=== PATIENT | male | born 1960 | race Caucasian/White ===

== ENCOUNTER 2017-06-17 02:12 | Emergency (ER) | payer SELFPAY ==
[2017-06-17] MEDS ORDERED: Albuterol/Ipratropium NEB.SOL* Albuterol 2.5 MG/Ipratropium 0.5 MG 3 ML ONE ×2 (02:36→04:44)
[2017-06-17] MEDS ORDERED: Albuterol/Ipratropium NEB.SOL* Albuterol 2.5 MG/Ipratropium 0.5 MG 3 ML INH ONE ×2 (02:38→04:41)
[2017-06-17 03:07] LABS: EPAP 6; FIO2 50; IPAP 12
[2017-06-17 03:12] LABS: PCO2 Arterial 44 mmHg (35-45)
[2017-06-17] MEDS ORDERED: methylPREDNISolone 125 MG* 2 ML VIAL ONE (04:42)
[2017-06-17] MEDS ORDERED: methylPREDNISolone 125 MG* 2 ML VIAL IV ONE (04:42)
[2017-06-17 05:41] LABS: Hematocrit 46 % (42-52); Hemoglobin 15.4 g/dl (14.0-18.0); Mean Corpuscular HGB Conc 34 g/dl (31-36); Mean Corpuscular Hemoglobin 30 pg (27-31); Mean Corpuscular Volume 88 fL (80-94); Mean Platelet Volume 9 um3 (7.4-10.4); Red Cell Distribution Width 13 % (10.5-15); White Blood Count 11.8 10^3/ul (3.5-10.8)
[2017-06-17 05:59] LABS: Albumin 4.4 g/dL (3.2-5.2); BUN/Creatinine Ratio 27.3 (8-20); C Reactive Protein 14.61 mg/L (< 5.00); Calcium 9.5 mg/dL (8.6-10.3); EGFR African American 133.4 (>60); EGFR Non-African American 103.8 (>60); Potassium 3.8 mmol/L (3.5-5.0); Total Bilirubin 0.6 mg/dL (0.2-1.0); Total Protein 7.4 g/dL (6.4-8.9)
[2017-06-17 06:08] VITALS: BP 137/79
[2017-06-17] MEDS ORDERED: Iohexol 300* (CONTRAST) 10 ML SDV IV ONE (06:42)
[2017-06-17 06:50] LABS: Troponin I 0.01 ng/mL (<0.04)
[2017-06-17 08:05] LABS: Urine Bilirubin Negative (Negative); Urine Glucose Negative (Negative); Urine Nitrite Negative (Negative)
--- NOTE | 2017-06-17 08:16 | RAD ---
HISTORY: Shortness of breath COMPARISONS: November 21, 2008 VIEWS: 1: frontal portable view of the chest at 2:45 AM FINDINGS: LINES AND TUBES: None. CARDIOMEDIASTINAL SILHOUETTE: The cardiomediastinal silhouette is normal for portable technique. PLEURA: The costophrenic angles are sharp. No pleural abnormalities are noted. LUNG PARENCHYMA: The lungs are clear. ABDOMEN: The upper abdomen is clear. There is no subphrenic gas. BONES AND SOFT TISSUES: No bone or soft tissue abnormalities are noted. IMPRESSION: NO ACTIVE CARDIOPULMONARY DISEASE.
--- NOTE | 2017-06-17 08:28 | RAD ---
HISTORY: Right-sided neck mass COMPARISONS: None TECHNIQUE: Multiple contiguous axial CT scans were obtained of the neck after the administration of nonionic intravenous contrast, with coronal and sagittal multiplanar reformations. FINDINGS: BRAIN AND ORBITS: The visualized brain is unremarkable. An orbital prosthesis is noted on the right.. PARANASAL SINUSES: The visualized paranasal sinuses are clear. SALIVARY GLANDS: The parotid glands, submandibular glands, sublingual glands are normal. NASAL CAVITY/NASOPHARYNX: The nasal cavity and nasopharynx are normal. ORAL CAVITY/OROPHARYNX: The oral cavity and oropharynx are unremarkable. LARYNGEAL APPARATUS/HYPOPHARYNX: There is a mass of the right laryngeal apparatus that extends into the supraglottic and subglottic spaces, extending to the anterior commissure, and invading the arytenoid cartilage and thyroid cartilage. This measures approximately 3.6 x 2.4 x 3.3 cm in size. There is partial effacement of the airway at this level UPPER AIRWAY/UPPER ESOPHAGUS: The visualized upper airway and esophagus are normal. LUNG APICES: There is extensive centrilobular emphysematous change of the lung apices bilaterally. THYROID GLAND: The thyroid gland is normal. LYMPH NODES: There are enlarged, for level 2 lymph nodes with central necrosis on the right measuring up to 2.4 cm in short axis. VASCULATURE: There is partial effacement of the right internal jugular vein by the cervical lymphadenopathy. BONES AND SOFT TISSUES: Degenerative changes are noted of the spine OTHER: None. IMPRESSION: 1. RIGHT LARYNGEAL MASS WITH SUPRAGLOTTIC AND SUBGLOTTIC EXTENSION AND PARTIAL EFFACEMENT OF THE AIRWAY. 2. THERE IS RIGHT UPPER CERVICAL LYMPHADENOPATHY.
--- NOTE | 2017-07-27 04:21 | ED ---
Joel Huynh Abhishek, scribed for Hiro Byrne MD on 06/17/17 at 0429 . Shortness of Breath - HPI Summary HPI Summary: This patient is a 56 year old M _presenting to [facility] accompanied by female with a chief complaint of SOB worse since 0000 at 06/17/17. The CC is described as sudden onset and improved since onset. The patient rates the pain 0/10 in severity. Symptoms aggravated by nothing. Symptoms alleviated by nothing. Patient reports wheezing, coughing, sore throat, and neck pain. Patient denies chest pain, fever, dental pain. PMHx denies HTN, SC, and COPD. - History of Current Complaint Chief Complaint: EDShortnessOfBreath Hx Obtained From: Patient Onset/Duration: Gradual Onset, Still Present, Worse Since - 0000 at 06/17/17 Timing: Constant Aggrevating Factors: Nothing Alleviating Factors: Nothing Associated Signs & Symptoms: Cough (Nonproductive), Wheezing - Risk Factors Cardiac: Smoking - Allergy/Home Medications Allergies/Adverse Reactions: Allergies Allergy/AdvReac Type Severity Reaction Status Date / Time No Known Allergies Allergy Verified 07/22/17 10:36 PMH/Surg Hx/FS Hx/Imm Hx Cardiovascular History: Denies: Hx Hypertension, Hx Myocardial Infarction Respiratory History: Denies: Hx Chronic Obstructive Pulmonary Disease (COPD) - Immunization History Date of Tetanus Vaccine: 1 year ago Infectious Disease History: No Infectious Disease History: Denies: Traveled Outside the [place] in Last 30 Days - Family History Known Family History: Positive: Cardiac Disease, Other - Cancer - Social History Alcohol Use: None Substance Use Type: Reports: None Smoking Status (MU): Heavy Every Day Tobacco Smoker Review of Systems Negative: Fever Eyes: Negative Positive: Other. Negative: Dental Pain Negative: Chest Pain Positive: Shortness Of Breath - sore throat, and wheezing, Cough, Other Gastrointestinal: Negative Genitourinary: Negative Positive: Other - neck pain Skin: Negative Neurological: Negative Psychological: Normal All Other Systems Reviewed And Are Negative: Yes Physical Exam - Summary Physical Exam Summary: Appearance: Well-appearing, Well-nourished, post traumatic injury of the right eye at baseline, Skin: Warm Eyes: Normal ENT: solid tenderness 3 cm round mass left antior cervical area Neck: Supple, nontender Respiratory: Respiratiory bilaterially expiratory wheezing prolonged expiratory phase Noisy breathing But able to speak in full sentences Cardiovascular: Normal Abdomen: Soft, nontender Bowel: Present Musculoskeletal: Normal, Strength/ROM Intact Neurological: Normal, Alert, Oriented to Person Psychiatric: Normal Triage Information Reviewed: Yes Vital Signs On Initial Exam: Initial Vitals Temp Pulse Resp BP Pulse Ox 98.3 F 105 24 128/92 95 06/17/17 02:20 06/17/17 02:20 06/17/17 02:20 06/17/17 02:20 06/17/17 02:20 Vital Signs Reviewed: Yes Diagnostics - Vital Signs Vital Signs Temp Pulse Resp BP Pulse Ox 06/17/17 03:59 89 18 99 06/17/17 03:30 96 17 100 06/17/17 02:48 94 26 100 06/17/17 02:20 98.3 F 105 24 128/92 95 - Laboratory Lab Results: Lab Results 06/17/17 Range/Units 02:45 Patient Temperature Not Reportable ABG pH 7.42 (7.35-7.45) ABG pH (Temp Correct) Not Reportable ABG pCO2 44 (35-45) mmHg ABG pCO2 (Temp Corrct Not Reportable ABG pO2 232 H (80-100) mmHg ABG pO2 (Temp Correct Not Reportable ABG HCO3 27.4 (19-31) mmol/L ABG O2 Saturation 99.6 H (95-98) % ABG Base Excess 3.4 H (-2.0-2.0) Respiration Rate Not Reportable O2 Delivery Device bipap Ventilator Type Not Reportable Vent Mode s/t FiO2 50 Inspiratory Time Not Reportable PEEP Not Reportable Pressure Support Not Reportable Pressure Control Not Reportable EPAP 6 IPAP 12 BiPAP Not Reportable Result Diagrams: 06/17/17 05:10 06/17/17 05:10 Lab Statement: Any lab studies that have been ordered have been reviewed, and results considered in the medical decision making process. Course/Dx - Course Assessment/Plan: pt wishes to leave AMA before reevaluation. Pt informed of risks against leaving AMA and demonstrates understanding. Pt left before I was able to provide proper discharge instructions - Diagnoses Provider Diagnoses: COPD exacerbation Discharge - Discharge Plan Condition: Stable Disposition: AGAINST MEDICAL ADVICE Referrals: No Primary Care Phys,NOPCP [Primary Care Provider] - The documentation as recorded by the scribe, Joel,Aidan accurately reflects the service I personally performed and the decisions made by me, Hiro Byrne MD.
== END 2017-06-17 07:53 | disposition left against medical advice (07) ==
LOC: ED 02:12
DX: J44.1 Chronic obstructive pulmonary disease with (acute) exacerbation (principal); F17.210 Nicotine dependence, cigarettes, uncomplicated
CPT/HCPCS: 36415; 36600; 70491; 71010; 80053; 81003; 82553; 82803; 83880; 84484; 85025; 85610; 85730; 86140; 93005; 94660; 96374; 99283; A9270-GY; J2930; Q9967

== ENCOUNTER 2017-06-23 14:57 | Emergency (ER) | payer SELFPAY ==
[2017-06-23] MEDS ORDERED: predniSONE TAB* 20 MG PO ONE (16:42)
--- NOTE | 2017-06-23 16:58 | ED ---
Marvin Huynh Alfonso, scribed for Jose Cortez MD on 06/23/17 at 1535 . Shortness of Breath - HPI Summary HPI Summary: This patient is a 56 year [facility] M [facility] female with a chief complaint of SOB since 4 months ago. The patient rates the pain 0/10 in severity. Symptoms aggravated by nothing. Symptoms alleviated by nothing. Patient reports right-sided neck lump, and hoarse voice. Medications reviewed. Allergies reviewed. - History of Current Complaint Chief Complaint: EDShortnessOfBreath Time Seen by Provider: 06/23/17 15:30 Hx Obtained From: Patient Onset/Duration: Gradual Onset, Still Present, Other - Lasting 4 months Timing: Constant Aggrevating Factors: Nothing Alleviating Factors: Nothing - Allergy/Home Medications Allergies/Adverse Reactions: Allergies Allergy/AdvReac Type Severity Reaction Status Date / Time No Known Allergies Allergy Verified 06/17/17 02:34 PMH/Surg Hx/FS Hx/Imm Hx Endocrine/Hematology History: Denies: Hx Diabetes Cardiovascular History: Denies: Hx Hypertension History: Denies: Hx Dialysis, Hx Renal Disease EENT History: Denies: Hx Deafness - Immunization History Date of Tetanus Vaccine: 1 year ago Infectious Disease History: No Infectious Disease History: Denies: Traveled Outside the [place] in Last 30 Days - Family History Known Family History: Positive: Cardiac Disease - Social History Alcohol Use: None Substance Use Type: Reports: None Smoking Status (MU): Heavy Every Day Tobacco Smoker Review of Systems Negative: Fever Positive: Other - Hoarse voice Positive: Shortness Of Breath Positive: Other - right-sided neck lump All Other Systems Reviewed And Are Negative: Yes Physical Exam - Summary Physical Exam Summary: General: well-appearing, no pain distress Skin: warm, color reflects adequate perfusion, dry Head: normal Eyes: EOMI, MELODY ENT: Voice is hoarse Neck: supple, nontender Respiratory: Stridor, breath sounds present Cardiovascular: RRR Abdomen: soft, nontender Bowel: present Musculoskeletal: strength/ROM intact, Swelling right lateral neck Neurological: normal, sensory/motor intact, A&O x3 Psychological: affect/mood appropriate Triage Information Reviewed: Yes Vital Signs On Initial Exam: Initial Vitals Temp Pulse Resp BP Pulse Ox 98.5 F 88 30 130/86 96 06/23/17 15:18 06/23/17 15:18 10/31/17 15:18 06/23/17 15:18 06/23/17 15:18 Vital Signs Reviewed: Yes Diagnostics - Vital Signs Vital Signs Temp Pulse Resp BP Pulse Ox 06/23/17 15:18 98.5 F 88 30 130/86 96 - Laboratory Lab Statement: Any lab studies that have been ordered have been reviewed, and results considered in the medical decision making process. Course/Dx - Course Course Of Treatment: DISCUSSED WITH KELLEN NAVA. HE RECOMMENDED STEROIDS PO AND F/U IN ENT OFFICE TOMORROW OR THE NEXT DAY IF THE PATIENT WAS SAFE TO DO SO AND ABLE TO GET TRANSPORTATION TO THE OFFICE. I DISCUSSED THIS WITH THE PATIENT AND HIS . THEY FEEL SAFE GETTING TO THE OFFICE AND DO HAVE TRANSPORTATION. THEY ALSO UNDERSTAND TO RETURN RIGHT AWAY WITH ANY DIFFICULTY BREATHING OR ANY CONCERNS. NO CRITICAL CARE TIME. - Diagnoses Provider Diagnoses: Mass of right side of neck, Dyspnea - Physician Notifications Discussed Care of Patient With: Brandon Navarro Time Discussed With Above Provider: 15:46 Instructed by Provider To: Other - Consulted Dr. Navarro (ENT) at 1546 regarding the patients case. He states that if the patient is stable for d/c start the patient on steroids and have him seen at his ENT office tomorrow. Discharge - Discharge Plan Condition: Stable Disposition: HOME Prescriptions: predniSONE TAB* [Deltasone TAB*] 20 mg PO BID #5 tab Referrals: No Primary Care Phys,NOPCP [Primary Care Provider] - Additional Instructions: FOLLOW UP WITH ENT FOR YOUR NECK MASS THAST IS CAUSING SHORTNESS OF BREATH. CALL TOMORROW, 06/24/17, IN THE MORNING TO BE SEEN EITHER TOMORROW OR THE NEXT DAY, 06/25/17. I DISCUSSED YOUR CASE WITH KELLEN NAVA. RETURN TO THE EMERGENCY DEPARTMENT FOR ANY WORSENING OF YOUR CONDITION; DIFFICULTY BREATHING OR SWALLOWING OR QUESTIONS OR CONCERNS. The documentation as recorded by the Marvin bradley Alfonso accurately reflects the service I personally performed and the decisions made by me, Jose Cortez MD.
[2017-06-23 17:29] VITALS: BP 128/82
== END 2017-06-23 17:29 | disposition home or self-care (01) ==
LOC: ED 14:57
DX: R22.1 Localized swelling, mass and lump, neck (principal); R06.00 Dyspnea, unspecified; F17.210 Nicotine dependence, cigarettes, uncomplicated
CPT/HCPCS: 99282; J7512

== ENCOUNTER 2017-06-25 16:30 | Inpatient (IN) | payer MEDICAID ==
--- NOTE | 2017-06-25 13:41 | RAD ---
Indication: Shortness of breath, preop tracheostomy tube. Single frontal view of the chest performed at 1310 hours was reviewed. Comparison is made with previous exam dated June 17, 2017. No mediastinal shift is noted. Heart is of normal size and configuration. Lung canales appear clear. Hyperinflated lung canales are noted. IMPRESSION: NO ACTIVE CARDIOPULMONARY DISEASE IS NOTED.
[2017-06-25 13:45] LABS: Hematocrit 45 % (42-52); Hemoglobin 14.8 g/dl (14.0-18.0); Mean Corpuscular HGB Conc 33 g/dl (31-36); Mean Corpuscular Hemoglobin 29 pg (27-31); Mean Corpuscular Volume 88 fL (80-94); Mean Platelet Volume 8 um3 (7.4-10.4); Red Blood Count 5.14 10^6/ul (4.0-5.4); Red Cell Distribution Width 14 % (10.5-15)
[2017-06-25 14:04] LABS: Albumin 4.1 g/dL (3.2-5.2); BUN/Creatinine Ratio 16.7 (8-20); Calcium 9.3 mg/dL (8.6-10.3); EGFR African American 131.5 (>60); EGFR Non-African American 102.2 (>60); Globulin 2.9 g/dL (2-4); Potassium 3.7 mmol/L (3.5-5.0); Total Bilirubin 0.4 mg/dL (0.2-1.0)
[~2017-06-25 16:30] MED LIST: Buffered Lidocaine 0.9% SYRIN* 5 ML/SYR SYRINGE INTRADERM ONE; Dexamethasone IV* 4 MG/ML 1 ML (4 MG) IV SLOW PU ONE; Dexamethasone IV* 4 MG/ML 1 ML (4 MG) ONE; EPINEPHrine AMP 1 MG/ML ONE; Famotidine IV* 10 MG/ML 2 ML (20 mg) IV ONE; Famotidine IV* 10 MG/ML 2 ML (20 mg) ONE; Levalbuterol 0.63MG/3ML NEB* UNIT OF USE INH ONE; Levalbuterol 1.25MG/0.5ML NEB ONE; Lidocaine 2% EPI 1:200000 MPF* 20 ML VIAL ONE; Lidocaine 2% PF * 5 ML VIAL ONE; Lidocaine 4% TOPICAL* 50 ML TOP.SOLN ONE; Midazolam* 1 MG/ML 5 ML VIAL (5 MG) ONE; Mivacurium Chloride* 20 MG/10 ML VIAL IV ONE; Ondansetron INJ* 2 MG/ML VIAL ONE; Oxymetazoline 0.05% NASAL SPR* 15 ML BTL ONE; Propofol* 10 MG/ML 20 ML BTL IV PUSH ONE; fentaNYL* 50 MCG/ML 2 ML VIAL (100 MCG VIAL) ONE
[2017-06-25] MEDS ORDERED: Midazolam* 1 MG/ML 2 ML VIAL (2 MG) ONE (16:40)
[2017-06-25] MEDS ORDERED: EPHEDrine (Pressors)* 50 MG/ML VIAL ONE (17:07)
[2017-06-25] MEDS ORDERED: fentaNYL* 50 MCG/ML 2 ML VIAL (100 MCG VIAL) ONE ×2 (17:41→18:02)
[2017-06-25] MEDS ORDERED: Levalbuterol 1.25MG/0.5ML NEB INH PRN (17:48)
[2017-06-25] MEDS ORDERED: Ondansetron INJ* 2 MG/ML VIAL IV PRN ×2 (17:48→18:44)
[2017-06-25] MEDS ORDERED: Levalbuterol 1.25MG/0.5ML NEB ONE (18:02)
[2017-06-25] MEDS: fentaNYL* 50 MCG/ML 2 ML VIAL (100 MCG VIAL) IV PRN ×4 (18:06→18:43)
[2017-06-25] MEDS: NS 0.9% 1000 ML* 1,000 ML IV SCH (19:38)
--- NOTE | 2017-06-25 21:40 | HP ---
HISTORY AND PHYSICAL: DATE OF ADMISSION: 06/25/17 PRIMARY CARE PROVIDER: None. ENT: Dr. Navarro. CHIEF COMPLAINT: Difficulty breathing. HISTORY OF PRESENT ILLNESS: Mr. Nur is a 56-year-old male who presented to the emergency room on initially 06/17/17 with complaints of difficulty breathing. At that time, the patient underwent CT scan of the neck, which revealed a right laryngeal mass of supraglottic and subglottic extension and partial effacement of the airway. There is right upper cervical lymphadenopathy also noted. The patient left AMA from the emergency room at that time. The patient re-presented to the emergency room on 06/21/17, again with complaints of difficulty breathing. At that time, the patient was recommended to be transferred to [place]; however, the patient refused and signed out against medical advice again. The patient re -presented to the emergency room again on 06/23/17. The patient was recommended to be started on steroids and be seen in the ear, nose, and throat office the day following. The patient was seen by Dr. Navarro today, 06/25/17 , at which time the decision was made that the patient needs emergent tracheostomy. The patient states that he noticed his breathing has become difficult starting approximately 4 to 5 months ago. Over the last 1 week, it has gotten progressively worse. The patient also noted that his voice has become very hoarse and that he has a large lump on the right side of his neck. He states that the lump on the right side of his neck was present dating back to at least December. The patient is a former smoker, stating that he quit approximately 1 week ago; however, he smokes 1-1/2 to 2 packs per day since the age of [age] years old. The patient understands the need for emergent tracheostomy and is in agreement. PAST MEDICAL HISTORY: Tobacco abuse. PAST SURGICAL HISTORY: 1. Umbilical hernia repair. 2. Abdominal wall hernia repair. 3. Right eye surgery after what sounds to be enucleation from trauma. MEDICATIONS: None. ALLERGIES: No known drug allergies. FAMILY HISTORY: Mom at the age of 78 of CHF. Dad at the age of 82, he had ID and cancer. REVIEW OF SYSTEMS: The patient denies any fevers, chills. No anorexia. No weight loss. He does state that he has a little bit of a difficult time swallowing due to pain in his throat. He states that he chokes on water. He denies any chest pain. He does admit to shortness of breath as above. He states that he has chronic cough, but no sputum production. No abdominal pain, constipation, diarrhea, or hematochezia. No hematuria. No dysuria or focal weakness. No sensory loss. No sudden change in vision. He states he has been ambulating without any difficulty except for his significant shortness of breath. PHYSICAL EXAMINATION GENERAL: The patient is a well-developed middle-aged male with very noisy respirations, sitting in the stretcher, in no acute distress. VITAL SIGNS: Blood pressure 134/82, pulse 92, respirations 26, temp 96.8, O2 sat is 97% on room air. HEENT: Right eye is gone. Left eye is intact. Pupils round. Extraocular muscles are intact. Oropharynx is clear. Oral mucosa is moist. The patient is edentulous. There is right-sided cervical adenopathy. PULMONARY: Lungs are clear to auscultation bilaterally, though his respirations in general are quite noisy. CARDIAC: Normal S1 and S2. Regular rate and rhythm. I do not appreciate any murmurs. There is no lower extremity edema. ABDOMEN: Bowel sounds are present. Abdomen is soft, nontender, and nondistended. There is a small umbilical hernia and small upper abdominal wall hernia. MUSCULOSKELETAL: There is no cyanosis or clubbing of the digits. There is full active range of motion of 4 extremities. SKIN: Warm and dry. There are no rashes. NEURO: Cranial nerves II through XII are grossly intact. Sensation is intact to light touch throughout. Strength is 5/5 and symmetric to both upper and lower extremities bilaterally. PSYCH: The patient is alert. He is oriented x3. Affect appears appropriate. LABORATORY DATA: WBC 11.0, hemoglobin 14.8, hematocrit 45, platelets 232,000. Sodium 141, potassium 3.7, chloride 107, CO2 27, BUN 13, creatinine 0.78, glucose 104, calcium 9.3, bilirubin 0.4, AST 13, ALT 17, alk phos 45, albumin 4.1. DIAGNOSTIC STUDIES: EKG revealed normal sinus rhythm with ST depressions in the inferolateral leads. This is similar to EKG done on 06/17/17. Chest x-ray revealed no active cardiopulmonary disease. ASSESSMENT AND PLAN: Mr. Nur is a 56-year-old male with a longstanding history of significant tobacco abuse and no routine medical care who presented to Dr. Navarro's office with complaints of severe shortness of breath and is emergently being taken to the operating room for tracheostomy due to a near obstructing laryngeal mass. 1. Near obstructing laryngeal mass. 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 The patient is needing an emergent tracheostomy and is being taken at this point to operating room. The patient will remain likely in the ICU for the next few days. Dr. Navarro states he will likely be transferred to [place] for further evaluation and management of this probable laryngeal cancer. I suspect the patient is going to need quite a bit of support in understanding and managing this diagnosis. We will go ahead and get a social work consult tomorrow. The patient also does not have insurance. His significant other was due to see somebody out in the community tomorrow to try to set up insurance. She will try followup on this and with social work. 2. Tobacco abuse. At this point, the patient's breath sounds are fairly clear. There are no signs of chronic obstructive pulmonary disease on exam. He states he quit approximately 1 week ago and is feeling quite good about this. At this point, we will hold off on any nicotine supplementation, though if he begins to have cravings, he can utilize nicotine patch. 3. DVT prophylaxis. According to the Adult Thrombosis Prophylaxis Risk Factor Assessment Guide, the patient has a total risk factor score of 3, making him high risk. I am going to hold off on subcutaneous heparin for now as he will be with a fresh tracheostomy and we will place him on SCDs. 4. Code status is full. TIME SPENT: Forty-five minutes was spent admitting this patient emergently prior to going to the OR. [id number]/[facility] #: [id number] HARRIET
[2017-06-25] MEDS: Morphine INJ* 4 MG/ML 1 ML CARPUJECT IV PRN (22:21)
[2017-06-26] MEDS: Morphine INJ* 4 MG/ML 1 ML CARPUJECT IV PRN ×3 (03:44→12:15)
[2017-06-26] MEDS: NS 0.9% 1000 ML* 1,000 ML IV SCH ×2 (08:01→21:35)
[2017-06-26] MEDS ORDERED: LORazepam INJ* 2 MG/ML 1 ML VIAL IV PUSH PRN (08:40)
--- NOTE | 2017-06-26 08:46 | PN ---
Subjective Date of Service: 06/26/17 Interval History: Pt is feeling ok. He is having quite a bit of pain at the trach site but states the pain medication is helping. He did not sleep at all last night. Objective Active Medications: Sodium Chloride (Ns 0.9% 1000 Ml*) 1,000 mls @ 75 mls/hr IV PER RATE [facility] Last Admin: 06/26/17 08:01 Dose: 75 mls/hr Lorazepam (Ativan Inj*) 0.5 mg IV PUSH Q6H PRN PRN Reason: ANXIETY Morphine Sulfate (Morphine Inj (Syringe)*) 4 mg IV Q4H PRN PRN Reason: PAIN Last Admin: 06/26/17 08:00 Dose: 4 mg Ondansetron HCl (Zofran Inj*) 4 mg IV Q6H PRN PRN Reason: NAUSEA Vital Signs 06/25/17 06/25/17 06/25/17 13:14 17:35 17:40 Temperature 96.8 F 99.0 F Pulse Rate 92 119 106 Respiratory 26 24 21 Rate Blood Pressure 134/82 151/106 145/81 (mmHg) O2 Sat by Pulse 97 97 97 Oximetry 06/25/17 06/25/17 06/25/17 17:45 17:50 18:00 Temperature Pulse Rate 117 128 121 Respiratory 21 24 23 Rate Blood Pressure 122/75 117/75 142/71 (mmHg) O2 Sat by Pulse 100 100 100 Oximetry 06/25/17 06/25/17 06/25/17 18:06 18:11 18:15 Temperature Pulse Rate 106 Respiratory 24 24 25 Rate Blood Pressure (mmHg) O2 Sat by Pulse 100 Oximetry 06/25/17 06/25/17 06/25/17 18:30 18:43 19:00 Temperature 99.3 F Pulse Rate 106 Respiratory 16 21 Rate Blood Pressure (mmHg) O2 Sat by Pulse 100 Oximetry 06/25/17 06/25/17 06/25/17 19:28 19:30 20:45 Temperature 99.3 F Pulse Rate 105 104 Respiratory 16 16 16 Rate Blood Pressure 127/87 135/93 (mmHg) O2 Sat by Pulse 95 97 Oximetry 06/25/17 06/25/17 06/25/17 20:57 21:00 21:15 Temperature Pulse Rate 104 103 104 Respiratory 16 19 18 Rate Blood Pressure 134/91 147/104 (mmHg) O2 Sat by Pulse 97 98 98 Oximetry 06/25/17 06/25/17 06/25/17 21:30 21:45 22:00 Temperature Pulse Rate 106 103 99 Respiratory 17 17 19 Rate Blood Pressure 143/97 138/92 135/94 (mmHg) O2 Sat by Pulse 98 97 97 Oximetry 06/25/17 06/25/17 06/25/17 22:16 22:21 22:30 Temperature Pulse Rate 109 105 Respiratory 17 18 17 Rate Blood Pressure 115/100 126/85 (mmHg) O2 Sat by Pulse 97 97 Oximetry 06/25/17 06/25/17 06/25/17 22:45 23:00 23:15 Temperature Pulse Rate 103 104 103 Respiratory 16 17 18 Rate Blood Pressure 126/83 131/91 136/88 (mmHg) O2 Sat by Pulse 96 96 96 Oximetry 06/25/17 06/25/17 06/25/17 23:30 23:45 23:51 Temperature 98.1 F Pulse Rate 100 98 Respiratory 15 15 Rate Blood Pressure 122/80 124/80 (mmHg) O2 Sat by Pulse 96 96 Oximetry 06/26/17 06/26/17 06/26/17 00:00 00:15 00:25 Temperature Pulse Rate 99 104 96 Respiratory 15 18 14 Rate Blood Pressure 118/84 135/92 (mmHg) O2 Sat by Pulse 96 95 96 Oximetry 06/26/17 06/26/17 06/26/17 00:30 00:45 01:00 Temperature Pulse Rate 92 89 90 Respiratory 16 16 15 Rate Blood Pressure 128/85 119/93 128/92 (mmHg) O2 Sat by Pulse 96 96 96 Oximetry 06/26/17 06/26/17 06/26/17 01:15 01:30 01:45 Temperature Pulse Rate 85 86 91 Respiratory 15 16 15 Rate Blood Pressure 132/87 133/96 133/86 (mmHg) O2 Sat by Pulse 96 96 96 Oximetry 06/26/17 06/26/17 06/26/17 02:00 02:15 02:30 Temperature Pulse Rate 90 81 81 Respiratory 16 15 16 Rate Blood Pressure 128/94 132/86 135/90 (mmHg) O2 Sat by Pulse 96 97 97 Oximetry 06/26/17 06/26/17 06/26/17 02:45 03:00 03:15 Temperature Pulse Rate 80 83 76 Respiratory 16 17 17 Rate Blood Pressure 130/88 131/94 130/92 (mmHg) O2 Sat by Pulse 96 96 96 Oximetry 06/26/17 06/26/17 06/26/17 03:30 03:44 03:46 Temperature Pulse Rate 76 93 Respiratory 16 18 20 Rate Blood Pressure 127/90 151/102 (mmHg) O2 Sat by Pulse 95 94 Oximetry 06/26/17 06/26/17 06/26/17 04:00 04:15 04:30 Temperature 98.8 F Pulse Rate 79 80 77 Respiratory 17 17 16 Rate Blood Pressure 131/91 135/87 131/95 (mmHg) O2 Sat by Pulse 94 94 95 Oximetry 06/26/17 06/26/17 06/26/17 04:45 05:00 05:15 Temperature Pulse Rate 81 90 83 Respiratory 16 17 21 Rate Blood Pressure 131/93 129/94 129/97 (mmHg) O2 Sat by Pulse 94 94 95 Oximetry 06/26/17 06/26/17 06/26/17 05:30 05:45 06:00 Temperature Pulse Rate 78 77 76 Respiratory 18 17 16 Rate Blood Pressure 129/91 132/86 136/90 (mmHg) O2 Sat by Pulse 95 96 96 Oximetry 06/26/17 06/26/17 06/26/17 06:15 06:30 06:45 Temperature Pulse Rate 78 76 75 Respiratory 17 16 17 Rate Blood Pressure 138/91 131/101 138/91 (mmHg) O2 Sat by Pulse 97 95 95 Oximetry 06/26/17 06/26/17 06/26/17 07:00 07:15 07:27 Temperature 99.1 F Pulse Rate 76 78 Respiratory 17 22 Rate Blood Pressure 135/102 135/93 (mmHg) O2 Sat by Pulse 95 94 Oximetry 06/26/17 06/26/17 06/26/17 07:30 07:45 08:00 Temperature Pulse Rate 76 75 85 Respiratory 16 16 21 Rate Blood Pressure 132/99 126/91 136/92 (mmHg) O2 Sat by Pulse 94 95 95 Oximetry Oxygen Devices in Use Now: Tracheostomy Collar - 50% FiO2 Appearance: Middle aged male sitting up in bed, NAD Eyes: No Scleral Icterus Ears/Nose/Mouth/Throat: Mucous Membranes Moist Respiratory: Symmetrical Chest Expansion and Respiratory Effort, Clear to Auscultation - +noisy upper airway sounds, scant clear sputum coming out of trach Cardiovascular: NL Sounds; No Murmurs; No JVD, RRR, No Edema Abdominal: NL Sounds; No Tenderness; No Distention Extremities: No Clubbing, Cyanosis Skin: No Rash or Ulcers, No Nodules or Sclerosis Neurological: Alert and Oriented x 3 Result Diagrams: 06/25/17 13:15 06/25/17 13:15 Microbiology and Other Data: Microbiology 06/25/17 20:00 Nasal Screen MRSA (PCR)([facility]) - Final Nasal Mrsa Negative Assess/Plan/Problems-Billing Mr Nur is a 56 yo M who has a long standing h/o smoking who presented to Dr. Navarro's office with c/o SOB and large laryngeal mass found on CT scan several days prior is now admitted following emergent tracheostomy for airway protection. - Patient Problems (1) Laryngeal malignant neoplasm Current Visit: Yes Status: Acute Comment: The patient was found to have a near obstructing laryngeal mass on CT 06/17/17 with associated cervical lymphadenopathy. Tracheostomy was placed emergently yesterday. Pain control is ok. Pt will need extensive teaching on trach care. Dr. Navarro to follow up today. Pt will likely be in the hospital for another couple days. Await pathology report. (2) Tobacco abuse Current Visit: Yes Status: Acute Code(s): Z72.0 - TOBACCO USE SNOMED Code( s): 290687388 Comment: Pt quit smoking ~1week ago. Will order nicotine patch in case he starts having cravings. (3) DVT prophylaxis Current Visit: Yes Status: Acute Code(s): MIQ7661 - SNOMED Code(s): 830865843 Comment: Start SQ heparin today if ok by ENT (4) Full code status Current Visit: Yes Status: Acute Code(s): Z78.9 - OTHER SPECIFIED HEALTH STATUS SNOMED Code(s): 256074876
--- NOTE | 2017-06-26 11:59 | OP ---
DATE OF OPERATION: 06/25/17 - ROOM #ICU-03 DATE OF : 56 SURGEON: Brandon Navarro MD PRE-OP DIAGNOSES: Laryngeal mass, stridor, neck metastases. POST-OP DIAGNOSES: Laryngeal mass, stridor, neck metastases. OPERATIVE PROCEDURE: Awake tracheostomy, laryngoscopy, and biopsy of right vocal cord. INDICATIONS: This 56-year-old gentleman presenting with increasing stridor over several days and weeks, seen in the emergency room and referred to our office where he was found to have an exophytic mass of the larynx. CT shows extensive involvement of the right laryngeal structures with effacement highly suspicious for carcinoma. Because of his poor airway, it was decided to perform awake elective tracheostomy. DESCRIPTION OF PROCEDURE: The patient was brought to the operating room awake, local anesthetic was infiltrated into the neck. Neck was then prepped and draped in the usual fashion. A curvilinear incision was made just below the cricoid. Subplatysmal flaps were elevated. Strap muscles were identified in the midline. Portion of the thyroid was identified and divided in the midline. Tracheal cartilage was identified and incised just below the cricoid to leave __ ___ trachea as possible. A #8 Shiley was placed. The patient was given a general anesthetic. Next, we turned the patient and larynx was suspended. Cup forceps biopsy of the right larynx and supraglottic structures were carried out , sent for permanent section. The patient was then transferred to full care to the ICU. [id number]/[facility] #: [id number] MTDD
[2017-06-26] MEDS: Nicotine PATCH 21 MG/24 HR* PATCH TRANSDERM SCH (14:35)
[2017-06-26] MEDS: Nicotine Patch Removal NOTE FOLLOW UP SCH (21:34)
--- NOTE | 2017-06-27 08:18 | PN ---
Subjective Date of Service: 06/27/17 Interval History: Mr. Nur reports a sore throat but denies other complaint including chest pain, SOB, nausea or abdominal pain. Objective Active Medications: Sodium Chloride (Ns 0.9% 1000 Ml*) 1,000 mls @ 75 mls/hr IV PER RATE [facility] Lorazepam (Ativan Inj*) 0.5 mg IV PUSH Q6H PRN Morphine Sulfate (Morphine Inj (Syringe)*) 4 mg IV Q4H PRN Nicotine (Nicotine Patch 21 Mg/24 Hr*) 1 patch TRANSDERM DAILY@0800 [facility] Ondansetron HCl (Zofran Inj*) 4 mg IV Q6H PRN Pharmacy Profile Note (Nicotine Patch Removal Note*) 1 note FOLLOW UP 2100 [facility] Vital Signs Vital Signs: Temp Pulse Resp BP Pulse Ox 98.9 F 92 20 127/74 92 06/27/17 07:42 06/27/17 08:00 06/27/17 08:00 06/27/17 08:00 06/27/17 08:00 Oxygen Devices in Use Now: Tracheostomy Collar Appearance: Male sitting up in bed in NAD Eyes: No Scleral Icterus Ears/Nose/Mouth/Throat: Mucous Membranes Moist Neck: Trachea Midline Respiratory: Symmetrical Chest Expansion and Respiratory Effort, Clear to Auscultation Cardiovascular: NL Sounds; No Murmurs; No JVD, No Edema Abdominal: NL Sounds; No Tenderness; No Distention Lymphatic: No Cervical Adenopathy Extremities: No Edema Skin: No Rash or Ulcers Neurological: Alert and Oriented x 3, NL Muscle Strength and Tone Nutrition: Taking PO's Result Diagrams: 06/25/17 13:15 06/25/17 13:15 Microbiology and Other Data: Microbiology 06/25/17 20:00 Nasal Screen MRSA (PCR)([facility]) - Final Nasal Mrsa Negative Assess/Plan/Problems-Billing Mr Nur is a 56 yo M who has a long standing h/o smoking who presented to Dr. Navarro's office with c/o SOB and large laryngeal mass found on CT scan several days prior is now admitted following emergent tracheostomy for airway protection. - Patient Problems (1) Laryngeal malignant neoplasm Comment: - The patient was found to have a near obstructing laryngeal mass on CT with associated cervical lymphadenopathy. - Tracheostomy was placed emergently 06/25/17. - Pain control is ok. Pt will need extensive teaching on trach care. Dr. Navarro to follow up today. Pt will likely be in the hospital for another couple days. Await pathology report. (2) Tobacco abuse Comment: - Pt quit smoking ~1week ago. Nicotine replacement therapy available prn. (3) DVT prophylaxis Comment: - Start SQ heparin when ok per ENT (4) Full code status Status and Disposition: Inpatient. Anticipate discharge to home when medically stable.
[2017-06-27] MEDS: Nicotine PATCH 21 MG/24 HR* PATCH TRANSDERM SCH (08:21)
[2017-06-27] MEDS: NS 0.9% 1000 ML* 1,000 ML IV SCH ×2 (10:57→22:12)
--- NOTE | 2017-06-27 14:32 | RAD ---
Indication: Verify nasogastric tube placement. Single frontal view of the chest performed at 1415 hours was reviewed. Comparison is made with previous exam dated 07-10. No mediastinal shift is noted. Heart is of normal size and configuration. Lung canales appear clear. Feeding tube is at the gastroesophageal junction. IMPRESSION: NO ACTIVE CARDIOPULMONARY DISEASE IS NOTED. FEEDING TUBE IS AT THE GASTROESOPHAGEAL JUNCTION.
[2017-06-27] MEDS: Morphine INJ* 4 MG/ML 1 ML CARPUJECT IV PRN ×2 (17:04→22:11)
[2017-06-27] MEDS: Nicotine Patch Removal NOTE FOLLOW UP SCH (21:17)
[2017-06-28] MEDS: Morphine INJ* 4 MG/ML 1 ML CARPUJECT IV PRN ×4 (05:28→20:49)
[2017-06-28] MEDS: NS 0.9% 1000 ML* 1,000 ML IV SCH (09:00)
[2017-06-28] MEDS: Nicotine PATCH 21 MG/24 HR* PATCH TRANSDERM SCH (09:25)
[2017-06-28] MEDS ORDERED: Iohexol 300* (CONTRAST) 10 ML SDV IV SCH (12:28)
--- NOTE | 2017-06-28 13:56 | PN ---
Subjective Date of Service: 06/28/17 Interval History: Mr. Nur indicates that he is feeling relatively well. He continues to have pain in his throat that isn't much improved. He denies other complaint including chest pain, SOB, nausea or abdominal pain. Objective Active Medications: Hydrocodone Bitart/Acetaminophen (Nortab 7.5/325 Liq*) 15 ml G TUBE Q4H PRN Sodium Chloride (Ns 0.9% 1000 Ml*) 1,000 mls @ 75 mls/hr IV PER RATE [facility] Iohexol (Omnipaque 300* (Contrast)) 80 ml IV ONCE [facility] Lorazepam (Ativan Inj*) 0.5 mg IV PUSH Q6H PRN Morphine Sulfate (Morphine Inj (Syringe)*) 4 mg IV Q4H PRN Nicotine (Nicotine Patch 21 Mg/24 Hr*) 1 patch TRANSDERM DAILY@0800 [facility] Ondansetron HCl (Zofran Inj*) 4 mg IV Q6H PRN Pharmacy Profile Note (Nicotine Patch Removal Note*) 1 note FOLLOW UP 2100 [facility] Vital Signs: Temp Pulse Resp BP Pulse Ox 98.4 F 83 20 116/72 96 06/28/17 07:27 06/28/17 11:00 06/28/17 11:00 06/28/17 11:00 06/28/17 11:00 Oxygen Devices in Use Now: Tracheostomy Collar, OxyTrach Appearance: Male sitting up in bed in NAD Eyes: No Scleral Icterus Ears/Nose/Mouth/Throat: Mucous Membranes Moist Neck: Trachea Midline, - - Trach in situ with trach collar Respiratory: Symmetrical Chest Expansion and Respiratory Effort, Clear to Auscultation Cardiovascular: NL Sounds; No Murmurs; No JVD, No Edema Abdominal: NL Sounds; No Tenderness; No Distention Lymphatic: No Cervical Adenopathy, No Axillary Adenopathy Skin: No Rash or Ulcers Neurological: Alert and Oriented x 3, NL Muscle Strength and Tone Result Diagrams: 06/25/17 13:15 06/25/17 13:15 Microbiology and Other Data: . Assess/Plan/Problems-Billing Mr Nur is a 56 yo M who has a long standing h/o smoking who presented to Dr. Navarro's office with c/o SOB and large laryngeal mass found on CT scan several days prior is now admitted following emergent tracheostomy for airway protection. - Patient Problems (1) Laryngeal malignant neoplasm Comment: - The patient was found to have a near obstructing laryngeal mass on CT with associated cervical lymphadenopathy. - Tracheostomy was placed emergently 06/25/17. - Pain control is reasonable. Pt will need extensive teaching on trach care. - Await pathology report, plan for CT chest to look for further disease burden. Discussion around transfer to [place] for further surgery undergoing between Dr. Navarro, Dr Batista and patient. Patient's limited finances are an issue, as he is currently unemployed. (2) Impaired swallowing Comment: - Corpak placed yesterday and tube feedings started under direction of Dr. Navarro. - Check electrolytes in AM. (3) Tobacco abuse Comment: - Pt quit smoking ~1week ago. Nicotine replacement therapy available prn. (4) DVT prophylaxis Comment: - Start SQ heparin when ok per ENT (5) Full code status Status and Disposition: Inpatient. Anticipate discharge to home when medically stable.
--- NOTE | 2017-06-28 16:10 | RAD ---
L indication: Evaluate for metastatic disease. Near obstructing laryngeal mass. CT of the chest performed after IV contrast administration. No prior study is available for comparison. Tracheostomy tube is in place. Nasogastric tube is in place. No hilar adenopathy is noted. The heart demonstrates no pericardial effusion. Small right hilar lymph nodes are noted measuring up to 12 mm. By basilar atelectasis is noted. No pleural fluid is identified. No evidence of alveolar consolidation is noted. Subcutaneous emphysema is noted. Left renal cyst is noted. IMPRESSION: BIBASILAR ATELECTASIS. NO OBVIOUS NODULARITY IS NOTED IN THE REMAINDER OF THE EXPANDED LUNG. SUBCUTANEOUS EMPHYSEMA IS NOTED.
[2017-06-28] MEDS ORDERED: NS 0.9% 1000 ML* 1,000 ML IV ONE ×2 (16:50→17:15)
[2017-06-28] MEDS: Nicotine Patch Removal NOTE FOLLOW UP SCH (20:50)
--- NOTE | 2017-06-29 00:27 | RADMED ---
CC: Dr. 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 Performance status, ECOG 2. HISTORY OF PRESENT ILLNESS: Mr. Nur is a 57-year-old gentleman with hoarseness and neck mass developing over the last several months. He presented to the emergency department for increased shortness of breath a number of times starting 06/17/17, and was concerned about cost of care, and did not initially follow through with care. When he saw Dr. Navarro, he was recommended to consider urgent tracheostomy for airway obstruction from laryngeal mass, which was demonstrated on CT scan of the neck on 06/17/17 with destructive lesion focused on the right side of the larynx with transglottic extension and erosion of the cricoid and thyroid cartilages. There are also 2 necrotic right upper cervical nodes. He is stable following tracheostomy, and is referred for multidisciplinary discussion of management with regard to radiation therapy for his case. He is seen along with his , and he communicates reasonably well with the use of a wipe board. PAST MEDICAL HISTORY: None significant reported. MEDICATIONS: As per the inpatient record. ALLERGIES: No known drug allergies. FAMILY HISTORY: Significant for his father who had cancer. SOCIAL HISTORY: He has been a smoker his entire adult life a relatively heavy level, although he quit approximately 1 week ago. He is seen along with who is quite supportive. REVIEW OF SYSTEMS: A complete review of systems is asked of the patient, somewhat limited by his communications, but some neck discomfort, but no other symptomatic complaints or concerns are reported. PHYSICAL EXAMINATION: Vital Signs: Heart rate 85, respiratory rate 18, oxygen saturation 93%, blood pressure 123/77, temperature 98.4. General: He is awake. He is alert, oriented, in the hospital bed, in no acute distress. Normocephalic and atraumatic. Sclerae anicteric. Neck with fresh tracheostomy in place. Palpable right neck mass, tender. Lungs with symmetric air entry bilaterally. Cardiovascular: S1, S2 regular. Abdomen: Soft, nontender. Extremities: No cyanosis or edema. Lymphatics: There is palpable right neck adenopathy, exam limited by discomfort. No additional cervical or supraclavicular lymphadenopathy appreciated. RADIOLOGY: Reviewed as in the history of present illness. ASSESSMENT AND PLAN: Mr. Nur is a 57-year-old gentleman with newly discovered local/regionally advanced larynx cancer, pathology from recent biopsy pending. I did review his history and his CT scan of the neck, and discussed at some length with the patient and his in detail. We reviewed management for larynx cancer, organ preservation for early stage and moderately advanced disease, and recommendation with, in his situation no good prospect for larynx preservation with T4 disease, consideration of upfront laryngectomy and neck dissection with consideration of adjuvant radiation therapy, indicated based on the extent of sydney involvement, with chemotherapy recommended depending on the extent of disease found at surgery, such as margin status and extracapsular sydney extension. With regard to adjuvant radiation therapy, I reviewed logistics and rationale for treatment, treatment schedule, and potential side effects broadly. I did answer the patient and his 's questions to the best of my ability. I will plan to follow up with him approximately 2 weeks postsurgery for review of pathology and discussion and planning of adjuvant radiation therapy. In terms of staging, he would benefit from outpatient PET/CT , and if his definitive oncologic surgery is to be undertaken as an inpatient on short order, chest CT to evaluate for pulmonary metastasis would be an acceptable presurgical staging. Thank you for giving me the opportunity to participate in the care of this very pleasant gentleman. [id number]/[facility] #: [id number] HARRIET
[2017-06-29] MEDS: Morphine INJ* 4 MG/ML 1 ML CARPUJECT IV PRN (00:33)
[2017-06-29] MEDS: NS 0.9% 1000 ML* 1,000 ML IV SCH ×2 (03:10→18:30)
[2017-06-29 05:56] LABS: Hematocrit 38 % (42-52); Hemoglobin 12.6 g/dl (14.0-18.0); Mean Corpuscular HGB Conc 34 g/dl (31-36); Mean Corpuscular Hemoglobin 30 pg (27-31); Mean Corpuscular Volume 88 fL (80-94); Mean Platelet Volume 8 um3 (7.4-10.4); Red Blood Count 4.27 10^6/ul (4.0-5.4); Red Cell Distribution Width 13 % (10.5-15)
[2017-06-29 06:10] LABS: Calcium 8.7 mg/dL (8.6-10.3); EGFR African American 184.4 (>60); EGFR Non-African American 143.4 (>60); Potassium 3.8 mmol/L (3.5-5.0)
--- NOTE | 2017-06-29 07:27 | PN ---
Subjective Date of Service: 06/29/17 Interval History: Mr. Nur denies any particular complaint today. He specifically denies chest pain, SOB, nausea, or abdominal pain. Objective Active Medications: Hydrocodone Bitart/Acetaminophen (Nortab 7.5/325 Liq*) 15 ml G TUBE Q4H PRN Sodium Chloride (Ns 0.9% 1000 Ml*) 1,000 mls @ 75 mls/hr IV PER RATE [facility]IO Iohexol (Omnipaque 300* (Contrast)) 80 ml IV ONCE [facility]IO Lorazepam (Ativan Inj*) 0.5 mg IV PUSH Q6H PRN Morphine Sulfate (Morphine Inj (Syringe)*) 4 mg IV Q4H PRN Nicotine (Nicotine Patch 21 Mg/24 Hr*) 1 patch TRANSDERM DAILY@0800 [facility] Ondansetron HCl (Zofran Inj*) 4 mg IV Q6H PRN Pharmacy Profile Note (Nicotine Patch Removal Note*) 1 note FOLLOW UP 2100 [facility] Vital Signs: Temp Pulse Resp BP Pulse Ox 98.1 F 72 22 113/68 96 06/29/17 07:22 06/29/17 06:00 06/29/17 06:00 06/29/17 06:00 06/29/17 06:00 Oxygen Devices in Use Now: Tracheostomy Collar Appearance: Male sitting up in bed in NAD Eyes: No Scleral Icterus Ears/Nose/Mouth/Throat: Mucous Membranes Moist, - - Patch to right eye Neck: Trachea Midline Respiratory: Symmetrical Chest Expansion and Respiratory Effort, Clear to Auscultation Cardiovascular: NL Sounds; No Murmurs; No JVD, No Edema Abdominal: NL Sounds; No Tenderness; No Distention Lymphatic: No Cervical Adenopathy Extremities: No Edema Skin: No Rash or Ulcers Neurological: Alert and Oriented x 3, NL Muscle Strength and Tone Nutrition: Taking PO's Result Diagrams: 06/29/17 05:30 06/29/17 05:30 Microbiology and Other Data: . Assess/Plan/Problems-Billing Mr Nur is a 56 yo M who was admitted 06/25/17 after having SOB and being found to have a large laryngeal mass s/p emergent tracheostomy for airway protection. - Patient Problems (1) Laryngeal malignant neoplasm Comment: - The patient was found to have a near obstructing laryngeal mass on CT with associated cervical lymphadenopathy. - Tracheostomy was placed emergently 06/25/17. - Pain control is reasonable. Pt will need extensive teaching on trach care. - Await pathology report, plan for CT chest to look for further disease burden. Discussion around transfer to [place] for further surgery undergoing between Dr. Navarro, Dr Batista and patient. Patient's limited finances are an issue, as he is currently unemployed. (2) Impaired swallowing Comment: - Corpak placed yesterday and tube feedings started under direction of Dr. Navarro. - BMP normal. (3) Tobacco abuse Comment: - Pt quit smoking ~1week ago. Nicotine replacement therapy available prn. (4) DVT prophylaxis Comment: - Start SQ heparin when ok per ENT (5) Full code status Status and Disposition: Inpatient. Anticipate discharge to home when medically stable.
[2017-06-29] MEDS: HYDROcodone/ACET. 7.5/325 LIQ* 15 ML UDC G TUBE PRN ×3 (11:02→21:18)
[2017-06-29] MEDS: Nicotine PATCH 21 MG/24 HR* PATCH TRANSDERM SCH (17:19)
[2017-06-29] MEDS: Nicotine Patch Removal NOTE FOLLOW UP SCH ×2 (21:18→23:27)
[2017-06-29] MEDS: Heparin VIAL(*) 5000 UNITS/ML VIAL (FIVE THOUSAND) SUBCUT SCH (22:30)
[2017-06-30] MEDS: Morphine INJ* 4 MG/ML 1 ML CARPUJECT IV PRN ×3 (03:56→20:50)
[2017-06-30] MEDS: Heparin VIAL(*) 5000 UNITS/ML VIAL (FIVE THOUSAND) SUBCUT SCH ×3 (06:24→22:06)
[2017-06-30] MEDS: Nicotine PATCH 21 MG/24 HR* PATCH TRANSDERM SCH (09:23)
--- NOTE | 2017-06-30 10:30 | PN ---
Subjective Date of Service: 06/30/17 Interval History: This is a 57 yo gentleman who is s/p mass excision and tracheostomy completed urgently as the mass was nearly obstructing. Pathology has now returned as invasive squamous cell carcinoma. Patient requires a laryngectomy and the recommendation is for transfer to [place], but the patient is quite resistant to that idea as he is fearful that his friends and family will be unable to visit. Patient is managing secretions via suction. Corpak tube was placed in the nare to provide supplemental nutrition as he has been having difficulty swallowing. Objective Active Medications: Hydrocodone Bitart/Acetaminophen (Nortab 7.5/325 Liq*) 15 ml G TUBE Q4H PRN PRN Reason: PAIN Last Admin: 06/29/17 21:18 Dose: 15 ml Heparin Sodium (Porcine) (Heparin Vial(*)) 5,000 units SUBCUT Q8HR [facility] Last Admin: 06/30/17 06:24 Dose: 5,000 units Sodium Chloride (Ns 0.9% 1000 Ml*) 1,000 mls @ 75 mls/hr IV PER RATE [facility] Last Admin: 06/29/17 18:30 Dose: 75 mls/hr Iohexol (Omnipaque 300* (Contrast)) 80 ml IV ONCE [facility] Stop: 06/30/17 12:27 Last Admin: 06/28/17 15:22 Dose: 80 ml Lorazepam (Ativan Inj*) 0.5 mg IV PUSH Q6H PRN PRN Reason: ANXIETY Morphine Sulfate (Morphine Inj (Syringe)*) 4 mg IV Q4H PRN PRN Reason: PAIN Last Admin: 06/30/17 03:56 Dose: 4 mg Nicotine (Nicotine Patch 21 Mg/24 Hr*) 1 patch TRANSDERM DAILY@0800 [facility] Last Admin: 06/30/17 09:23 Dose: Not Given Ondansetron HCl (Zofran Inj*) 4 mg IV Q6H PRN PRN Reason: NAUSEA Pharmacy Profile Note (Nicotine Patch Removal Note*) 1 note FOLLOW UP 2100 [facility] Last Admin: 06/29/17 23:27 Dose: Not Given Vital Signs: Temp Pulse Resp BP Pulse Ox 98.3 F 68 18 113/78 97 06/30/17 08:00 06/30/17 10:00 06/30/17 10:00 06/30/17 10:00 06/30/17 10:00 Oxygen Devices in Use Now: Tracheostomy Collar Appearance: Middle aged, slightly disheveled appearing gentleman in NAD. Expresses some pain with coughing. Unable to communicate verbally, but nods yes /no and writes limited messages Ears/Nose/Mouth/Throat: - - Corpak tube in place in nare Neck: - - tracheostomy collar in place with supp O2 Respiratory: Symmetrical Chest Expansion and Respiratory Effort, Clear to Auscultation Cardiovascular: NL Sounds; No Murmurs; No JVD, RRR Abdominal: NL Sounds; No Tenderness; No Distention Extremities: No Edema Skin: No Rash or Ulcers Neurological: Alert and Oriented x 3 Result Diagrams: 06/29/17 05:30 06/29/17 05:30 Microbiology and Other Data: . Diagnostic Imaging: CT chest - no obvious masses or LAD, bibasilar atelectasis Assess/Plan/Problems-Billing Mr Nur is a 56 yo M who was admitted 06/25/17 after having SOB and being found to have a large laryngeal mass s/p emergent tracheostomy for airway protection. - Patient Problems (1) Laryngeal malignant neoplasm Comment: The patient was found to have a near obstructing laryngeal mass on CT 06/17/17 with associated cervical lymphadenopathy. Tracheostomy was placed emergently 06/25/17. Decent pain control Pathology returned showing invasive squamous cell carcinoma, CT chest completed for additional staging shows no masses or significant LAD Patient requires laryngectomy and Dr Navarro recommends transfer to a larger center for the procedure which patient is extremely resistant to. Requested involvement to see if there is a way to transport his in order to accompany him to [place] Discussed recommendations with patient's friend, Blaine Chow, at the patient's request (2) Impaired swallowing Comment: Corpak placed and tube feedings started under direction of Dr. Navarro. (3) Tobacco abuse Comment: Nicotine replacement as needed (4) DVT prophylaxis Comment: SQ heparin (5) Full code status Status and Disposition: Inpatient. Transfer to surgical floor, pending possible transfer for laryngectomy
[2017-06-30] MEDS: NS 0.9% 1000 ML* 1,000 ML IV SCH ×2 (11:07→16:31)
[2017-06-30] MEDS: Nicotine Patch Removal NOTE FOLLOW UP SCH (21:18)
[2017-06-30] MEDS: HYDROcodone/ACET. 7.5/325 LIQ* 15 ML UDC G TUBE PRN (21:53)
[2017-07-01] MEDS: Morphine INJ* 4 MG/ML 1 ML CARPUJECT IV PRN (03:29)
[2017-07-01] MEDS: HYDROcodone/ACET. 7.5/325 LIQ* 15 ML UDC G TUBE PRN ×4 (05:51→18:29)
[2017-07-01] MEDS: Heparin VIAL(*) 5000 UNITS/ML VIAL (FIVE THOUSAND) SUBCUT SCH ×3 (06:27→22:05)
[2017-07-01] MEDS: NS 0.9% 1000 ML* 1,000 ML IV SCH (06:36)
[2017-07-01] MEDS: Nicotine PATCH 21 MG/24 HR* PATCH TRANSDERM SCH (08:42)
[2017-07-01 10:11] LABS: BUN/Creatinine Ratio 13.9 (8-20); Calcium 8.7 mg/dL (8.6-10.3); EGFR African American 143.7 (>60); EGFR Non-African American 111.7 (>60); Potassium 3.4 mmol/L (3.5-5.0)
--- NOTE | 2017-07-01 11:12 | PN ---
Subjective Date of Service: 07/01/17 Interval History: Patient reports being slightly more comfortable today. Pain is manageable at trach site. No SOB, CP, abd pain, n/v. Objective Active Medications: Hydrocodone Bitart/Acetaminophen (Nortab 7.5/325 Liq*) 15 ml G TUBE Q4H PRN PRN Reason: PAIN Last Admin: 07/01/17 10:31 Dose: 15 ml Heparin Sodium (Porcine) (Heparin Vial(*)) 5,000 units SUBCUT Q8HR [facility] Last Admin: 07/01/17 06:27 Dose: 5,000 units Sodium Chloride (Ns 0.9% 1000 Ml*) 1,000 mls @ 75 mls/hr IV PER RATE [facility] Last Admin: 07/01/17 06:36 Dose: 75 mls/hr Lorazepam (Ativan Inj*) 0.5 mg IV PUSH Q6H PRN PRN Reason: ANXIETY Morphine Sulfate (Morphine Inj (Syringe)*) 4 mg IV Q4H PRN PRN Reason: PAIN Last Admin: 07/01/17 03:29 Dose: 4 mg Nicotine (Nicotine Patch 21 Mg/24 Hr*) 1 patch TRANSDERM DAILY@0800 [facility] Last Admin: 07/01/17 08:42 Dose: Not Given Ondansetron HCl (Zofran Inj*) 4 mg IV Q6H PRN PRN Reason: NAUSEA Pharmacy Profile Note (Nicotine Patch Removal Note*) 1 note FOLLOW UP 2100 [facility] Last Admin: 06/30/17 21:18 Dose: Not Given Vital Signs: Temp Pulse Resp BP Pulse Ox 99.6 F 72 20 115/65 99 07/01/17 09:40 07/01/17 09:40 07/01/17 10:31 07/01/17 09:40 07/01/17 09:40 Oxygen Devices in Use Now: Tracheostomy Collar Appearance: Middle aged gentleman in NAD Neck: - - tracheostomy collar in place Respiratory: Symmetrical Chest Expansion and Respiratory Effort, - - diffuse rhonchi Cardiovascular: RRR Extremities: No Edema Skin: No Rash or Ulcers Neurological: Alert and Oriented x 3 Result Diagrams: 06/29/17 05:30 07/01/17 09:39 Microbiology and Other Data: . Diagnostic Imaging: CT chest - no obvious masses or LAD, bibasilar atelectasis Assess/Plan/Problems-Billing Mr Nur is a 56 yo M who was admitted 06/25/17 after having SOB and being found to have a large laryngeal mass s/p emergent tracheostomy for airway protection. - Patient Problems (1) Laryngeal malignant neoplasm Comment: The patient was found to have a near obstructing laryngeal mass on CT 06/17/17 with associated cervical lymphadenopathy. Tracheostomy was placed emergently 06/25/17. Pathology returned showing invasive squamous cell carcinoma, CT chest completed for additional staging shows no masses or significant LAD Patient requires laryngectomy and Dr Navarro recommends transfer to a larger center for the procedure which patient was initially resistant to, but now agreeable. Dr Navarro is working to coordinate transfer (2) Impaired swallowing Comment: Corpak placed and tube feedings started under direction of Dr. Navarro. (3) Tobacco abuse Comment: Nicotine replacement as needed (4) DVT prophylaxis Comment: SQ heparin (5) Full code status Status and Disposition: Inpatient. Pending transfer for laryngectomy
[2017-07-01 11:15] LABS: Magnesium 2.1 mg/dL (1.9-2.7)
[2017-07-01] MEDS ORDERED: Albuterol/Ipratropium NEB.SOL* Albuterol 2.5 MG/Ipratropium 0.5 MG 3 ML INH PRN (14:14)
[2017-07-01] MEDS: FORMOTEROL INH SCH (20:23)
[2017-07-01] MEDS: Nicotine Patch Removal NOTE FOLLOW UP SCH (21:04)
--- NOTE | 2017-07-01 21:05 | CONS ---
GASTROENTEROLOGY CONSULTATION: DATE OF CONSULTATION: July 01, 2017 HOSPITAL PROVIDER: Jennifer Vaz DO PRIMARY CARE PROVIDER: None. ENT SURGEON: Dr. Navarro. REASON FOR CONSULTATION: PEG placement. HISTORY OF PRESENT ILLNESS: Mr. Nur is a pleasant 57-year-old gentleman who presented to the emergency room multiple times at the end of May 2017 with difficulty breathing. Subsequently, on 06/17/17 he was diagnosed with a right laryngeal mass of supraglottic and subglottic extension and effacement of the airway on CAT scan. He presented to the emergency room multiple times and left AMA and refused transfers to tertiary care hospitals. He lastly presented to the emergency room on 06/23/17 at which point he was started on steroids after being seen by Dr. Navarro on 06/25/17. Upon Dr. Navarro's evaluation it was determined that the patient needed an emergent tracheostomy due to almost complete obstruction of the patient's airway and was admitted to the hospital. Throughout his hospital course he has received an emergent tracheostomy and has been recovering well without complications. Gastroenterology was consulted for possible PEG placement in need of optimization of the patient's nutritional status. Current plan is for the patient to be evaluated at [place] for laryngectomy and further treatment. The patient denies a previous history of endoscopic procedures. He is currently receiving tube feedings via a Dobhoff that was placed while in the ICU for nutritional management. He is currently tolerating the tube feedings without issues. The patient admits to a chronic cough and dysphagia likely due to laryngeal cancer. He denies any abdominal pain, change in bowel habits. Admits to a good appetite. Denies any chest pain , rectal bleeding. No recent weight changes. PAST MEDICAL HISTORY: 1. Right laryngeal mass with effacement of the airway. PAST SURGICAL HISTORY: 1. Abdominal wall hernia repair. 2. Umbilical hernia repair. 3. Right eye surgery secondary to trauma and subsequent enucleation. HOME MEDICATIONS: None. ALLERGIES: No known drug allergies. FAMILY HISTORY: Mother at age 78 secondary to CHF. Father at age 82 secondary to SD and carcinoma. SOCIAL HISTORY: Admits to 1-1/2 to 2 packs per day since the age of 12, quit approximately 1 week ago. REVIEW OF SYSTEMS: On a 14-point scale have been negative. All pertinent positives and negatives have been noted above in the HPI. PHYSICAL EXAMINATION: Vital Signs: Temperature is 98.8, pulse is 78, respirations 18, the patient is 96% on room air, blood pressure is 116/61. GENERAL: Well developed, well nourished, in no acute distress, answering questions appropriately, alert and oriented x3. HEENT: Enucleation of the right eye. Moist mucous membranes. Right-sided cervical lymphadenopathy. Dobbhoff tube in place. Tracheostomy in place. Pulmonary: Clear to auscultation bilaterally. Cardiovascular Examination: Regular rate and rhythm. Abdominal Exam: Positive bowel sounds, soft, nontender, nondistended, obese. Bowel sounds are present. There is a small umbilical hernia and a small upper abdominal hernia noted and surgical scars are also seen. Musculoskeletal Examination: No clubbing, cyanosis or edema. Skin is warm. No rashes. Neurological Exam: Grossly intact. LABORATORY DATA: Labs last performed on 06/29/17, WBC is 9.0, hemoglobin 12.6, hematocrit 38, MCV 88, platelets 169,000. BMP last checked on 07/01/17, sodium 139, potassium 3.4, chloride 103, CO2 of 32, anion gap 4, BUN 10, creatinine 0.72, calcium 8.7, magnesium 2.1. ASSESSMENT/PLAN: The patient is a 57-year-old male who presented from Dr. Navarro's office found to be short of breath with a large laryngeal mass and almost complete effacement of the patient's oral airway. He was admitted to the hospital for an emergent tracheostomy for airway protection on 06/25/17. Gastroenterology was consulted for placement of PEG tube for nutritional purposes prior to transfer to [place] for laryngeal mass resection and further treatment of the patient's condition. 1. Obstructing laryngeal mass with almost complete effacement of airway ~S/p emergent tracheostomy performed on 07/04/17 for airway protection by Dr. Navarro. ~Biopsies from the laryngeal mass revealed invasive squamous cell carcinoma. Staging workup is in progress. ~Dr. Navarro is currently managing the patient's transfer to [place] for further management. ~Gastroenterology was consulted for possible PEG placement. At this time, I would recommend for a surgical G-tube placement as opposed to a percutaneous endoscopic gastrostomy tube placement given the patient's almost complete airway obstruction for laryngeal mass as placing a PEG tube can cause further trauma to the patient's laryngeal area and cause further complications such as perforation and increased risk of bleeding. I discussed the case with Magdaleno Marie and currently Dr. Ronquillo from Surgery is on standby to perform surgical G-tube placement on 07/03/17. May continue tube feedings through Dobhoff for now. We will continue to follow the patient closely and provide recommendations as needed. Discussed with nursing team as well. Nidhi Howard D.O. Thank you Dr. Vaz for allowing us to participate in the care of your patient. If you should have any questions or concerns, please do not hesitate to contact us. [id number]/[facility] #: [id number] HARRIET
[2017-07-02 07:15] LABS: BUN/Creatinine Ratio 10.1 (8-20); Calcium 8.9 mg/dL (8.6-10.3); EGFR African American 150.9 (>60); EGFR Non-African American 117.4 (>60); Potassium 3.8 mmol/L (3.5-5.0)
[2017-07-02] MEDS: Heparin VIAL(*) 5000 UNITS/ML VIAL (FIVE THOUSAND) SUBCUT SCH ×2 (07:28→14:08)
[2017-07-02] MEDS: Nicotine PATCH 21 MG/24 HR* PATCH TRANSDERM SCH (11:06)
[2017-07-02] MEDS: Morphine INJ* 4 MG/ML 1 ML CARPUJECT IV PRN ×2 (11:21→21:24)
[2017-07-02] MEDS: FORMOTEROL INH SCH ×2 (12:58→20:35)
--- NOTE | 2017-07-02 14:03 | PN ---
Subjective Date of Service: 07/02/17 Interval History: Patient offers no new complaints. Pain is adequately controlled. Mild SOB. Doing well with suction to manage secretions. Objective Active Medications: Hydrocodone Bitart/Acetaminophen (Nortab 7.5/325 Liq*) 15 ml G TUBE Q4H PRN PRN Reason: PAIN Last Admin: 07/01/17 18:29 Dose: 15 ml Albuterol/Ipratropium (Duoneb (Albuterol 2.5 Mg/Ipratropium 0.5 Mg)) 1 neb INH Q4H PRN PRN Reason: SOB/WHEEZING Formoterol Fumarate (Perforomist Neb.Soln*(Nf)) 20 mcg INH RT.BID COUNT INCLUDES THE [facility] Last Admin: 07/02/17 12:58 Dose: 20 mcg Heparin Sodium (Porcine) (Heparin Vial(*)) 5,000 units SUBCUT Q8HR COUNT INCLUDES THE [facility] Last Admin: 07/02/17 07:28 Dose: Not Given Lactated Ringer's (Lactated Ringers 1000 Ml Bag*) 1,000 mls @ 50 mls/hr IV PER RATE COUNT INCLUDES THE [facility] Last Admin: 07/02/17 11:07 Dose: 50 mls/hr Lorazepam (Ativan Inj*) 0.5 mg IV PUSH Q6H PRN PRN Reason: ANXIETY Morphine Sulfate (Morphine Inj (Syringe)*) 4 mg IV Q4H PRN PRN Reason: PAIN Last Admin: 07/02/17 11:21 Dose: 4 mg Nicotine (Nicotine Patch 21 Mg/24 Hr*) 1 patch TRANSDERM DAILY@0800 COUNT INCLUDES THE [facility] Last Admin: 07/02/17 11:06 Dose: Not Given Ondansetron HCl (Zofran Inj*) 4 mg IV Q6H PRN PRN Reason: NAUSEA Last Admin: 07/01/17 19:41 Dose: 4 mg Pharmacy Profile Note (Nicotine Patch Removal Note*) 1 note FOLLOW UP 2100 COUNT INCLUDES THE [facility] Last Admin: 07/01/17 21:04 Dose: Not Given Vital Signs: Temp Pulse Resp BP Pulse Ox 98.6 F 72 16 121/73 98 07/02/17 12:03 07/02/17 13:00 07/02/17 13:00 07/02/17 12:03 07/02/17 13:00 Oxygen Devices in Use Now: Tracheostomy Collar Appearance: 57 yo gentleman in NAD Neck: - - tracheostomy collar in place Respiratory: Symmetrical Chest Expansion and Respiratory Effort, - - lower airways sound clear post neb treatment, upper airway secretions and rhonchi Cardiovascular: NL Sounds; No Murmurs; No JVD, RRR Abdominal: NL Sounds; No Tenderness; No Distention Extremities: No Edema Skin: No Rash or Ulcers Neurological: Alert and Oriented x 3 Result Diagrams: 06/29/17 05:30 07/02/17 06:35 Microbiology and Other Data: . Diagnostic Imaging: CT chest - no obvious masses or LAD, bibasilar atelectasis Assess/Plan/Problems-Billing Mr Nur is a 56 yo M who was admitted 06/25/17 after having SOB and being found to have a large laryngeal mass s/p emergent tracheostomy for airway protection. - Patient Problems (1) Laryngeal malignant neoplasm Comment: The patient was found to have a near obstructing laryngeal mass on CT 06/17/17 with associated cervical lymphadenopathy. Tracheostomy was placed emergently 06/25/17. Pathology returned showing invasive squamous cell carcinoma, CT chest completed for additional staging shows no masses or significant LAD Patient requires laryngectomy and Dr Navarro initially recommended transfer, but now plans to complete the laryngectomy at our facility tomorrow. The patient is very happy to hear the news RCRI score 0, placing him at low risk. Reviewed recent CXR, EKG and labs. Started on nebulized LABA with prn DuoNebs to optimize respiratory status. No medical contraindication to planned procedure (2) Impaired swallowing Comment: Corpak placed and tube feedings started under direction of Dr. Navarro. Pending Gtube placement by Dr Ronquillo tomorrow following laryngectomy (3) Tobacco abuse Comment: Nicotine replacement as needed (4) DVT prophylaxis Comment: SQ heparin, holding for pending surgery tomorrow (5) Full code status Status and Disposition: Inpatient. Pending laryngectomy 07/03/17, plan for ICU post procedure
[2017-07-02] MEDS ORDERED: Buffered Lidocaine 0.9% SYRIN* 5 ML/SYR SYRINGE INTRADERM ONE (15:40)
[2017-07-02] MEDS: Nicotine Patch Removal NOTE FOLLOW UP SCH (21:44)
[2017-07-03] MEDS ORDERED: Famotidine IV* 10 MG/ML 2 ML (20 mg) IV ONE (06:00)
[2017-07-03] MEDS: Morphine INJ* 4 MG/ML 1 ML CARPUJECT IV PRN ×2 (06:05→20:53)
[2017-07-03 06:38] LABS: BUN/Creatinine Ratio 10.7 (8-20); Calcium 9.2 mg/dL (8.6-10.3); EGFR African American 137.1 (>60); EGFR Non-African American 106.6 (>60); Potassium 4.2 mmol/L (3.5-5.0)
[2017-07-03] MEDS: Nicotine PATCH 21 MG/24 HR* PATCH TRANSDERM SCH (07:25)
[2017-07-03] MEDS: FORMOTEROL INH SCH ×2 (08:05→20:01)
[2017-07-03] MEDS ORDERED: Clindamycin 900 MG IVPREMIX(* 900 MG/50 ML SDV IV ONE ×2 (10:01→18:24)
[2017-07-03] MEDS ORDERED: Ondansetron INJ* 2 MG/ML VIAL ONE (11:09)
[2017-07-03] MEDS ORDERED: Propofol* 10 MG/ML 20 ML BTL IV PUSH ONE (11:09)
[2017-07-03] MEDS ORDERED: Dexamethasone IV* 4 MG/ML 1 ML (4 MG) ONE (11:09)
[2017-07-03] MEDS ORDERED: Lidocaine 2% PF * 5 ML VIAL ONE (11:09)
[2017-07-03] MEDS ORDERED: fentaNYL* 50 MCG/ML 5 ML VIAL (250 MCG VIAL) ONE (11:10)
[2017-07-03] MEDS ORDERED: Midazolam* 1 MG/ML 5 ML VIAL (5 MG) ONE (11:10)
[2017-07-03] MEDS ORDERED: Rocuronium* 10 MG/ML VIAL ONE ×2 (11:10→11:12)
[2017-07-03] MEDS ORDERED: KETAMINE HCL* 50 MG/ML 10 ML VIAL ONE (11:10)
[2017-07-03] MEDS ORDERED: Artificial Tear OPHTH.OINT* 3.5 GM ONE (11:12)
[2017-07-03] MEDS ORDERED: Methylene Blue 0.5 %* 50 MG/10 ML AMP IV ONE (11:21)
[2017-07-03] MEDS ORDERED: Bupivacaine 0.25% SDV* 30 ML ONE (11:21)
[2017-07-03] MEDS ORDERED: Lidocaine 4% TOPICAL* 50 ML TOP.SOLN ONE (11:21)
[2017-07-03] MEDS ORDERED: Oxymetazoline 0.05% NASAL SPR* 15 ML BTL ONE (11:21)
[2017-07-03] MEDS ORDERED: Phenylephrine IV* 40 MCG/ML 10 ML SYRINGE ONE (12:45)
[2017-07-03] MEDS ORDERED: EPHEDrine (Pressors)* 50 MG/ML VIAL ONE (12:45)
[2017-07-03] MEDS ORDERED: Phenylephrine INJ* 10 MG/ML 1 ML VIAL (10 MG) ONE ×2 (13:00→16:12)
--- NOTE | 2017-07-03 13:24 | CONS ---
CC: Brandon Navarro MD; [facility] SURGICAL CONSULTATION NOTE: DATE OF CONSULT: 07/03/17 HISTORY OF PRESENT ILLNESS: I was contacted by the Hospitalist Service to evaluate Mr. Nur. The pat saima is with a new diagnosis of laryngeal cancer who underwent tracheostomy during this hospitalizati on and is planned for laryngectomy. The consultation was for feeding tube. The patient was evaluate d by Gastroenterology and felt to not be a candidate for percutaneous endoscopic gastrostomy. After reviewing the patient's chart, I discussed with him the procedure of a laparoscopic gastrostomy as I do believe this is warranted. I outlined the details of procedure going over the risks, benefi ts, and alternatives and the patient wishes to proceed. We will do this at the same time of his cm ngectomy. I spoke of the possible complications, which included, but not limited to bleeding, infect ion, need for open procedure, need for additional procedures, prolonged hospitalization, need for mor e distal feeding. The patient's questions were answered and consent was signed. The patient's procedures, history and physical, and consultations were reviewed on this hospitalizati on. A short physical exam was performed. The patient's abdomen is soft, nondistended, nontender. Recurr ent umbilical hernia is appreciated. It is nonobstructing. IMPRESSION: New diagnosis of laryngeal cancer requiring surgical intervention. The patient's need fo r nutrition will require additional feeding tube and laparoscopic gastrostomy as a benefit. This kamla l be performed today. [id number]/[facility] #: [id number]
[2017-07-03] MEDS ORDERED: fentaNYL* 50 MCG/ML 2 ML VIAL (100 MCG VIAL) ONE ×4 (15:40→19:54)
[2017-07-03] MEDS ORDERED: HYDROmorphone INJ* 1 MG/ML CARPUJECT SYRINGE IV PRN (16:48)
[2017-07-03] MEDS ORDERED: DiMENhydriNATE IV* 50 MG/ML VIAL IV PUSH PRN (16:48)
[2017-07-03] MEDS ORDERED: fentaNYL* 50 MCG/ML 2 ML VIAL (100 MCG VIAL) IV PRN (16:48)
[2017-07-03] MEDS ORDERED: Levalbuterol 1.25MG/0.5ML NEB INH PRN (16:48)
[2017-07-03] MEDS ORDERED: Ondansetron INJ* 2 MG/ML VIAL IV PRN (16:48)
[2017-07-03] MEDS ORDERED: ceFAZolin 2 GM PREMIX (*) 2 GM/50 ML BAG IVPB ONE (17:21)
[2017-07-03] MEDS ORDERED: Bacitracin OINTMENT* 1 TUBE ONE (17:25)
--- NOTE | 2017-07-03 19:25 | SURGPN ---
Brief Operative Note - Surgery Procedures: Procedures Pre-OP Diagnoses: Laryngeal ca Post-op Diagnosis: same Procedure: Diagnostic laparoscopy, ADELA, feeding gastrostomy Surgeon: Shima Asst: none Anethesia: PRESTON EBL: minimal IVF: crystolloid Specimen: none Drains: 18Fr Parveen gastrostomy Complications: None
[2017-07-03] MEDS: Clindamycin 900 MG IVPREMIX(* 900 MG/50 ML SDV IV SCH (21:55)
[2017-07-04] MEDS: Nicotine Patch Removal NOTE FOLLOW UP SCH ×2 (00:11→20:08)
[2017-07-04] MEDS: Morphine INJ* 4 MG/ML 1 ML CARPUJECT IV PRN (01:00)
[2017-07-04] MEDS: fentaNYL* 50 MCG/ML 2 ML VIAL (100 MCG VIAL) IV PRN ×7 (02:27→20:15)
[2017-07-04] MEDS: Clindamycin 900 MG IVPREMIX(* 900 MG/50 ML SDV IV SCH ×3 (05:35→22:01)
--- NOTE | 2017-07-04 06:46 | OP ---
DATE OF OPERATION: 07/03/17 - ROOM #ICU-06 DATE OF : 56 SURGEON: Brandon Navarro MD ASSISTANTS: Dr. Andrade and LONG Waite. ANESTHESIOLOGIST: Phoenix Victor MD ANESTHESIA: General PRE-OP DIAGNOSIS: Squamous cell carcinoma, T4 N0 SN2b larynx. POST-OP DIAGNOSIS: Squamous cell carcinoma, T4 N0 SN2b larynx. OPERATIVE PROCEDURE: 1. Right modified radical neck dissection. 2. Preservation of sternocleidomastoid muscle and total laryngectomy. 3. Provox prosthesis. BRIEF HISTORY: This pleasant 56-year-old gentleman with a large exophytic tumor , squamous cell carcinoma with metastatic neck disease elected for surgical management. DESCRIPTION OF PROCEDURE: The patient was brought to the operating room, previously the patient had undergone a tracheostomy for airway. Through the tracheostomy, the patient was intubated. The circuit was changed to an endotracheal tube, which was secured. The neck was then prepped and draped in the usual fashion. A curvilinear incision was made from the right mastoid all the way across to the midline, past the midline and over to the other side. Subplatysmal flaps were elevated and subsequently skeletonization of the sternocleidomastoid was carried out. Once this was done, inferior identification of the jugular vein was carried out and careful tunneling through the vein preserving the vagus nerve and carotid artery, sacrificing posteriorly the accessory nerve, resecting all the posterior contents towards the jugular vein and then resecting out the jugular vein all the way to the skull base. Again, double ligature of the proximal and distal portions of the jugular vein was carried out. The submandibular gland was identified and carefully pealed off and then the lingual nerve and hypoglossal nerve were identified and preserved. These were used to course our ways to the skull base. Once the neck contents were removed preserving the sternocleidomastoid muscle, strap muscles were divided in the superior portion, the hyoid bone was then skeletonized, skeletonizing the thyroid cartilage down to the cricoid. Subsequently, incision was made through the tongue base, through with the Gretchen and then utilizing direct visualization, mucosal cuts were made down to the cricoid where the republican wall was identified and divided. Once the larynx was removed, reconstruction of the pharynx was carried out, saving a portion inferiorly to insert a Provox prosthesis. Once this was done, the Provox was in place, the skin flaps were closed. The stoma was created adequately. I felt the placement of the Provox was adequate. When this was completed, the drain was inserted, a small endotracheal tube was removed and a Shiley was placed. The patient's care was then transferred to Dr. Ronquillo who will be performing an open gastrostomy feeding tube in preparation for radiation therapy. The patient was to be kept n.p.o., transferred to the ICU after he was awakened. Estimated blood loss was 250 cc. Instrument and sponge count at the time of my procedure was complete. There were no intraoperative complications. [id number]/[facility] #: [id number] MTDD
[2017-07-04 06:48] LABS: Hematocrit 34 % (42-52); Hemoglobin 11.3 g/dl (14.0-18.0); Mean Corpuscular HGB Conc 34 g/dl (31-36); Mean Corpuscular Hemoglobin 30 pg (27-31); Mean Corpuscular Volume 88 fL (80-94); Mean Platelet Volume 8 um3 (7.4-10.4); Red Blood Count 3.83 10^6/ul (4.0-5.4); Red Cell Distribution Width 13 % (10.5-15); White Blood Count 10.1 10^3/ul (3.5-10.8)
[2017-07-04 07:00] LABS: BUN/Creatinine Ratio 13.2 (8-20); Calcium 8.5 mg/dL (8.6-10.3); EGFR African American 153.5 (>60); EGFR Non-African American 119.4 (>60); Potassium 3.9 mmol/L (3.5-5.0)
--- NOTE | 2017-07-04 08:10 | OP ---
CC: Dr. Brandon Navarro; [facility]. OPERATIVE REPORT: DATE OF OPERATION: 07/03/17 DATE OF : 56 SURGEON: Cornell Ronquillo MD HOME ENERGY AUDITOR: None. ANESTHESIOLOGIST: Phoenix Victor MD ANESTHESIA: General. PRE-OP DIAGNOSIS: Laryngeal cancer. POST-OP DIAGNOSIS: Laryngeal cancer. OPERATIVE PROCEDURE: Diagnostic laparoscopy, lysis of adhesions, and feeding gastrostomy. ESTIMATED BLOOD LOSS: Minimal. 18-Belgian Will-Forbes gastrostomy tube placed. INDICATIONS: Mr. Nur is a 57-year-old gentleman who is undergoing a laryngectomy, and after the proc edure, the case was passed on for feeding gastrostomy placement. The abdomen was prepped and draped i n standard surgical fashion. The patient received another dose of antibiotics. Another time-out was performed after the draping of the patient. A subcostal incision was made on the right approximately 2 fingerbreadths below the coastal margin in the mid clavicular line. This was deepened down to the anterior fascia which was elevated and a Татьяна ess needle inserted into the abdominal cavity which was then allowed to insufflate to a pressure of 1 5 mmHg. The patient tolerated the insufflation well. 5-mm trocar was inserted at this site. Laparos cope was inserted, we reviewed the abdomen. Significant adhesions were noted in the anterior abdomin al wall. We could not see the left side of the abdomen. We were able to place a left paramedian 5 m m trocar, this gave us better view of the left upper quadrant. Stomach appeared dilated, but intact without scaring. All these scar tissues appeared to be along the greater omentum into the anterior a bdominal wall. Another 5-mm trocar was then placed in the left lateral position. Next lysis of adhesions was carried out in the anterior abdominal wall at the spot we are going to pl princess the gastrostomy. Once this was performed, we could grasp the stomach and bring it up to the ante rior abdominal wall. A spot was chosen. A laparoscopic gastrostomy kit was opened up. This was rev iewed. The dilator set was utilized by first placing the 3 T-fasteners in a triangular fashion to th e anterior abdominal wall after injection of lidocaine. These went through the stomach wall, and we were able to bring the stomach up to the anterior abdominal wall where we were intending to place the incision. We dropped the insufflation to 12 mmHg. A was inserted at the mid portion of the triangle into the stomach. We placed a wire through this, but noted that it pierced another portion of the anterior abdominal stomach and this was removed. This was done again. At this time with insu fflation through the needle that showed air inflating into the stomach. We then brought the T-fasten ers, tied to the anterior abdominal wall and then with the wire in place, we serially dilated the sto mach and the skin with subcutaneous fascia until the full 22-Belgian dilator was placed. Next an 18-Belgian Will-Forbes gastrostomy tube was then inserted to the hub. The split away catheter was removed. We were able to insert air into the stomach with ease, but we could not draw any fluid out . Next the balloon was inflated with approximately 15 cc and we were able to bring this balloon with th e Will-Forbes tube up to the stomach wall to perform a nice tight seal. The disk was then brought down t o the skin. The disk was sutured to the skin with 3-0 Prolene sutures. Next we did notice a small serosal area that required additional stitch. This was placed with a 2-0 Silk suture to imbricate this area, assuring not to affect the tubing. The abdomen was allowed to co llapse. Trocar was removed under direct vision. The additional 3 skin incisions were reapproximated with skin ivan followed by sterile dressing. [id number]/[facility] [place] #: [id number]
[2017-07-04] MEDS: Heparin VIAL(*) 5000 UNITS/ML VIAL (FIVE THOUSAND) SUBCUT SCH ×3 (08:20→22:01)
[2017-07-04] MEDS: FORMOTEROL INH SCH ×2 (08:54→19:54)
--- NOTE | 2017-07-04 09:42 | PN ---
Progress Note - Progress Note Date of Service: 07/04/17 SOAP: Subjective: Comfortable Objective: Temp Pulse Resp BP Pulse Ox 98.2 F 75 20 107/63 95 07/04/17 00:00 07/04/17 08:57 07/04/17 08:57 07/04/17 06:00 07/04/17 08:57 Intake & Output 07/02/17 07/03/17 07/04/17 07/05/17 06:59 06:59 06:59 06:59 Intake Total 1846 2268 5634 Output Total 1075 1550 3035 Balance 697 612 4856 Weight 182 lb 12.211 oz Intake: IV Fluids 0 787 5291 LR 787 5001 NS (0.9%) 0 290 IVPB 596 53 LR 53 NS (0.9%) 596 Oral 0 0 0 Tube Feeding 950 1191 240 Tube Feeding Flush Amount 300 290 50 Output: G Tube 150 LORI #1 85 Urine 1075 1550 0 Rosario 2800 Other: Estimated Void Medium # Bowel Movements zero Estimated Stool Amount Medium PEX: Comfortable Abd is soft and non-distended. G-tube is intact without significant drainage. Bedside KUB with injection of 30 cc gastrograffin this morning shows tube to be in good position with contrast into stomach and duodenum. Assessment: POD# 1 s/p laparoscopic G-tube placement Plan: OK to start tube feeds today--recommend starting 10cc/h and advancing as tolerated.
--- NOTE | 2017-07-04 10:17 | RAD ---
HISTORY: G-tube placement COMPARISONS: None VIEWS: A single frontal supine view the abdomen after administration of oral contrast through the gastrostomy tube FINDINGS: BOWEL: There is a nonobstructive bowel gas pattern. There is a large amount of stool within the colon. Oral contrast is noted within the lumen of the stomach and proximal duodenum without appreciable extravasation. A gastrostomy tube is noted. CALCULI: There are no abnormal calculi. BONES AND SOFT TISSUES: There are no osseous abnormalities. OTHER FINDINGS: The lung bases are clear. There is no subphrenic gas. IMPRESSION: 1. NONOBSTRUCTIVE BOWEL GAS PATTERN. 2. A GASTROSTOMY TUBE IS NOTED WITH ORAL CONTRAST WITHIN THE LUMEN OF THE UPPER GI TRACT, WITHOUT EXTRAVASATION
[2017-07-04] MEDS: Nicotine PATCH 21 MG/24 HR* PATCH TRANSDERM SCH (10:19)
--- NOTE | 2017-07-04 17:48 | PN ---
Subjective Date of Service: 07/03/17 Interval History: . Saw patient in PACU area afte rsurgery Still recovering Discussed case with general surgery (Dr. Ronquillo - who inserted feeding tube) no surgical complications had leryngectomy earlier trach in place, fx'ing. transferred to ICU for monitoring. . Family History: Unchanged from Admission Social History: Unchanged from Admission Past Medical History: Unchanged from Admission Objective Active Medications: . Hydrocodone Bitart/Acetaminophen (Nortab 7.5/325 Liq*) 15 ml G TUBE Q4H PRN PRN Reason: PAIN Last Admin: 07/01/17 18:29 Dose: 15 ml Albuterol/Ipratropium (Duoneb (Albuterol 2.5 Mg/Ipratropium 0.5 Mg)) 1 neb INH Q4H PRN PRN Reason: SOB/WHEEZING Fentanyl Citrate (Fentanyl*) 50 mcg IV Q2H PRN PRN Reason: PAIN Last Admin: 07/04/17 15:56 Dose: 50 mcg Formoterol Fumarate (Perforomist Neb.Soln*(Nf)) 20 mcg INH RT.BID [facility] Last Admin: 07/04/17 08:54 Dose: 20 mcg Heparin Sodium (Porcine) (Heparin Vial(*)) 5,000 units SUBCUT Q8HR [facility] Last Admin: 07/04/17 13:09 Dose: 5,000 units Lactated Ringer's (Lactated Ringers 1000 Ml Bag*) 1,000 mls @ 125 mls/hr IV PER RATE [facility] Last Admin: 07/04/17 14:33 Dose: 125 mls/hr Clindamycin HCl/Dextrose (Cleocin 900 Mg Ivpremix (*) Sdv) 900 mg in 50 mls @ 100 mls/hr IV Q8H [facility] Stop: 07/06/17 22:30 Last Admin: 07/04/17 14:30 Dose: 100 mls/hr Lorazepam (Ativan Inj*) 0.5 mg IV PUSH Q6H PRN PRN Reason: ANXIETY Nicotine (Nicotine Patch 21 Mg/24 Hr*) 1 patch TRANSDERM DAILY@0800 [facility] Last Admin: 07/04/17 10:19 Dose: Not Given Ondansetron HCl (Zofran Inj*) 4 mg IV Q6H PRN PRN Reason: NAUSEA Last Admin: 07/01/17 19:41 Dose: 4 mg Pharmacy Profile Note (Nicotine Patch Removal Note*) 1 note FOLLOW UP 2100 [facility] Last Admin: 07/04/17 00:11 Dose: Not Given Vital Signs 07/03/17 07/03/17 07/03/17 19:20 19:25 19:30 Temperature 97.0 F Pulse Rate 79 75 75 Respiratory 18 19 22 Rate Blood Pressure 107/63 105/59 102/60 (mmHg) O2 Sat by Pulse 94 92 93 Oximetry 07/03/17 07/03/17 07/03/17 19:45 19:57 20:00 Temperature Pulse Rate 70 65 Respiratory 19 19 18 Rate Blood Pressure 101/60 109/63 (mmHg) O2 Sat by Pulse 93 92 Oximetry Oxygen Devices in Use Now: Tracheostomy Collar Appearance: post-op; sedated Ears/Nose/Mouth/Throat: Clear Oropharnyx Neck: - - + trach in place. Respiratory: Clear to Auscultation Abdominal: No Hepatosplenomegaly Lymphatic: No Inguinal Adenopathy Extremities: No Edema Skin: No Rash or Ulcers Neurological: - - sedated post-op; tired Lines/Tubes/Other Access: Clean, Dry and Intact Peripheral IV Nutrition: - - NPO Result Diagrams: 07/04/17 06:30 07/04/17 06:30 Microbiology and Other Data: . Diagnostic Imaging: CT chest - no obvious masses or LAD, bibasilar atelectasis Assess/Plan/Problems-Billing Mr Nur is a 56 yo M who was admitted 06/25/17 after having SOB and being found to have a large laryngeal mass s/p emergent tracheostomy for airway protection. - Patient Problems (1) Laryngeal malignant neoplasm Current Visit: Yes Status: Acute Comment: The patient was found to have a near obstructing laryngeal mass on CT 06/17/17 with associated cervical lymphadenopathy. Tracheostomy was placed emergently 06/25/17. Pathology returned showing invasive squamous cell carcinoma, CT chest completed for additional staging shows no masses or significant LAD - s/p laryngectomy by Dr Navarro 07/03/2017. - PEG placed same date by gen surgery RCRI score 0, placing him at low risk. Reviewed recent CXR, EKG and labs. Started on nebulized LABA with prn DuoNebs to optimize respiratory status. No medical contraindication to planned procedure (2) Impaired swallowing Current Visit: Yes Status: Acute Priority: High Comment: Gtube placed by Dr Ronquillo after laryngectomy. (3) Tobacco abuse Current Visit: Yes Status: Chronic Priority: Medium Code(s): Z72.0 - TOBACCO USE Comment: Nicotine replacement as needed (4) DVT prophylaxis Current Visit: Yes Status: Acute Priority: Medium Code(s): LKH8702 - Comment: SQ heparin, holding for pending surgery tomorrow (5) Full code status Current Visit: Yes Status: Acute Priority: High Code(s): Z78.9 - OTHER SPECIFIED HEALTH STATUS Status and Disposition: Inpatient. Laryngectomy 07/03/17, // ICU post procedure.
--- NOTE | 2017-07-04 17:50 | PN ---
Subjective Date of Service: 07/04/17 Interval History: . saw patient this AM Spoke with Dr. Sahu --> can start TF slowly (10 cc/hr) Will use jevity. pt denies pain nods yes/no to basic questions. gestured with "thumbs up"... Family History: Unchanged from Admission Social History: Unchanged from Admission Past Medical History: Unchanged from Admission Objective Active Medications: Hydrocodone Bitart/Acetaminophen (Nortab 7.5/325 Liq*) 15 ml G TUBE Q4H PRN PRN Reason: PAIN Last Admin: 07/01/17 18:29 Dose: 15 ml Albuterol/Ipratropium (Duoneb (Albuterol 2.5 Mg/Ipratropium 0.5 Mg)) 1 neb INH Q4H PRN PRN Reason: SOB/WHEEZING Fentanyl Citrate (Fentanyl*) 50 mcg IV Q2H PRN PRN Reason: PAIN Last Admin: 07/04/17 15:56 Dose: 50 mcg Formoterol Fumarate (Perforomist Neb.Soln*(Nf)) 20 mcg INH RT.BID [facility] Last Admin: 07/04/17 08:54 Dose: 20 mcg Heparin Sodium (Porcine) (Heparin Vial(*)) 5,000 units SUBCUT Q8HR [facility] Last Admin: 07/04/17 13:09 Dose: 5,000 units Lactated Ringer's (Lactated Ringers 1000 Ml Bag*) 1,000 mls @ 125 mls/hr IV PER RATE [facility] Last Admin: 07/04/17 14:33 Dose: 125 mls/hr Clindamycin HCl/Dextrose (Cleocin 900 Mg Ivpremix (*) Sdv) 900 mg in 50 mls @ 100 mls/hr IV Q8H [facility] Stop: 07/06/17 22:30 Last Admin: 07/04/17 14:30 Dose: 100 mls/hr Lorazepam (Ativan Inj*) 0.5 mg IV PUSH Q6H PRN PRN Reason: ANXIETY Nicotine (Nicotine Patch 21 Mg/24 Hr*) 1 patch TRANSDERM DAILY@0800 [facility] Last Admin: 07/04/17 10:19 Dose: Not Given Ondansetron HCl (Zofran Inj*) 4 mg IV Q6H PRN PRN Reason: NAUSEA Last Admin: 07/01/17 19:41 Dose: 4 mg Pharmacy Profile Note (Nicotine Patch Removal Note*) 1 note FOLLOW UP 2100 [facility] Last Admin: 07/04/17 00:11 Dose: Not Given Vital Signs 07/04/17 07/04/17 07/04/17 11:00 12:00 13:00 Temperature Pulse Rate 85 76 79 Respiratory 28 20 25 Rate Blood Pressure 113/62 110/64 115/70 (mmHg) O2 Sat by Pulse 92 94 94 Oximetry 07/04/17 07/04/17 07/04/17 13:09 14:00 15:00 Temperature Pulse Rate 81 73 Respiratory 20 26 24 Rate Blood Pressure 114/74 106/69 (mmHg) O2 Sat by Pulse 94 95 Oximetry 07/04/17 15:56 Temperature Pulse Rate Respiratory 20 Rate Blood Pressure (mmHg) O2 Sat by Pulse Oximetry Oxygen Devices in Use Now: Tracheostomy Collar Appearance: mid aged - appears stated age. can't talk 2/2 laryngectomy Ears/Nose/Mouth/Throat: Clear Oropharnyx Neck: - - trach collar Respiratory: Clear to Auscultation Cardiovascular: NL Sounds; No Murmurs; No JVD Abdominal: NL Sounds; No Tenderness; No Distention Lymphatic: No Inguinal Adenopathy Extremities: No Edema Skin: No Rash or Ulcers Neurological: Alert and Oriented x 3 Lines/Tubes/Other Access: Clean, Dry and Intact Peripheral IV Nutrition: TEN - starting jevity today Result Diagrams: 07/05/17 05:18 07/05/17 05:18 Microbiology and Other Data: . Diagnostic Imaging: CT chest - no obvious masses or LAD, bibasilar atelectasis Assess/Plan/Problems-Billing Mr Nur is a 56 yo M who was admitted 06/25/17 after having SOB and being found to have a large laryngeal mass s/p emergent tracheostomy for airway protection. - Patient Problems (1) Laryngeal malignant neoplasm Current Visit: Yes Status: Acute Comment: The patient was found to have a near obstructing laryngeal mass on CT 06/17/17 with associated cervical lymphadenopathy. Tracheostomy was placed emergently 06/25/17. Pathology returned showing invasive squamous cell carcinoma, CT chest completed for additional staging shows no masses or significant LAD - s/p laryngectomy by Dr Navarro 07/03/2017. - PEG placed same date by gen surgery Pre-operative Risk Assssmement: RCRI score 0, placing him at low risk. Reviewed recent CXR, EKG and labs. Started on nebulized LABA with prn DuoNebs to optimize respiratory status. Was no medical contraindication to planned procedure. (2) Impaired swallowing Current Visit: Yes Status: Acute Priority: High Comment: Gtube placed by Dr Ronquillo after laryngectomy. (3) Tobacco abuse Current Visit: Yes Status: Chronic Priority: Medium Code(s): Z72.0 - TOBACCO USE Comment: Nicotine replacement as needed (4) DVT prophylaxis Current Visit: Yes Status: Acute Priority: Medium Code(s): [id number] - Comment: SQ heparin, holding for pending surgery tomorrow (5) Full code status Current Visit: Yes Status: Acute Priority: High Code(s): Z78.9 - OTHER SPECIFIED HEALTH STATUS Status and Disposition: Inpatient. Laryngectomy 07/03/17, // ICU post procedure.
[2017-07-04] MEDS: HYDROcodone/ACET. 7.5/325 LIQ* 15 ML UDC G TUBE PRN (20:15)
[2017-07-05] MEDS: HYDROcodone/ACET. 7.5/325 LIQ* 15 ML UDC G TUBE PRN ×5 (00:19→23:44)
[2017-07-05] MEDS: Clindamycin 900 MG IVPREMIX(* 900 MG/50 ML SDV IV SCH ×3 (05:15→22:15)
[2017-07-05] MEDS: Heparin VIAL(*) 5000 UNITS/ML VIAL (FIVE THOUSAND) SUBCUT SCH ×3 (05:15→22:16)
[2017-07-05 05:41] LABS: Hematocrit 34 % (42-52); Hemoglobin 11.2 g/dl (14.0-18.0); Mean Corpuscular HGB Conc 33 g/dl (31-36); Mean Corpuscular Hemoglobin 30 pg (27-31); Mean Corpuscular Volume 89 fL (80-94); Mean Platelet Volume 8 um3 (7.4-10.4); Red Blood Count 3.78 10^6/ul (4.0-5.4); Red Cell Distribution Width 14 % (10.5-15); White Blood Count 10.6 10^3/ul (3.5-10.8)
[2017-07-05 05:52] LABS: Calcium 8.8 mg/dL (8.6-10.3); EGFR African American 137.1 (>60); EGFR Non-African American 106.6 (>60); Potassium 4.5 mmol/L (3.5-5.0)
[2017-07-05] MEDS: FORMOTEROL INH SCH ×2 (08:06→20:26)
[2017-07-05] MEDS: Nicotine PATCH 21 MG/24 HR* PATCH TRANSDERM SCH (08:23)
--- NOTE | 2017-07-05 09:10 | PN ---
Progress Note - Progress Note Date of Service: 07/05/17 SOAP: Subjective: Without complaint today-no abdominal pain Nurses report one episode last night of larger tube feeding residual and tube feeds were held for an hour and resumed. Tube feeds running without problem at present Objective: Temp Pulse Resp BP Pulse Ox 97.5 F 65 18 108/62 96 07/05/17 08:00 07/05/17 08:45 07/05/17 08:45 07/05/17 08:00 07/05/17 08:45 PEX: Comfortable Abd is soft and non-distended. G-tube in good position. Assessment: POD# 2 s/p laparoscopic gastric tube insertion Plan: Advance tube feeds to goal of 60cc/h as tolerated.
[2017-07-05] MEDS: fentaNYL* 50 MCG/ML 2 ML VIAL (100 MCG VIAL) IV PRN ×2 (15:08→23:44)
--- NOTE | 2017-07-05 17:16 | PN ---
Subjective Date of Service: 07/05/17 Interval History: . saw patient at bedside and spoke with SR. CONSULTANT several times. Trach care ongoing increasing G tube feeding to 30 cc after d/w surgery. checking residuals daily. still has pain --> getting oral meds via G-tube...seems to suffice ENT will round again tomorrow; not many active issues from medical perspective...mainly nutrition. . Family History: Unchanged from Admission Social History: Unchanged from Admission Past Medical History: Unchanged from Admission Objective Active Medications: . Hydrocodone Bitart/Acetaminophen (Nortab 7.5/325 Liq*) 15 ml G TUBE Q4H PRN PRN Reason: PAIN Last Admin: 07/05/17 16:48 Dose: 15 ml Albuterol/Ipratropium (Duoneb (Albuterol 2.5 Mg/Ipratropium 0.5 Mg)) 1 neb INH Q4H PRN PRN Reason: SOB/WHEEZING Fentanyl Citrate (Fentanyl*) 50 mcg IV Q2H PRN PRN Reason: PAIN Last Admin: 07/05/17 15:08 Dose: 50 mcg Formoterol Fumarate (Perforomist Neb.Soln*(Nf)) 20 mcg INH RT.BID [facility] Last Admin: 07/05/17 08:06 Dose: 20 mcg Heparin Sodium (Porcine) (Heparin Vial(*)) 5,000 units SUBCUT Q8HR [facility] Last Admin: 07/05/17 13:04 Dose: 5,000 units Lactated Ringer's (Lactated Ringers 1000 Ml Bag*) 1,000 mls @ 125 mls/hr IV PER RATE [facility] Last Admin: 07/05/17 16:48 Dose: 125 mls/hr Clindamycin HCl/Dextrose (Cleocin 900 Mg Ivpremix (*) Sdv) 900 mg in 50 mls @ 100 mls/hr IV Q8H [facility] Stop: 07/06/17 22:30 Last Admin: 07/05/17 13:04 Dose: 100 mls/hr Lorazepam (Ativan Inj*) 0.5 mg IV PUSH Q6H PRN PRN Reason: ANXIETY Nicotine (Nicotine Patch 21 Mg/24 Hr*) 1 patch TRANSDERM DAILY@0800 [facility] Last Admin: 07/05/17 08:23 Dose: Not Given Ondansetron HCl (Zofran Inj*) 4 mg IV Q6H PRN PRN Reason: NAUSEA Last Admin: 07/01/17 19:41 Dose: 4 mg Pharmacy Profile Note (Nicotine Patch Removal Note*) 1 note FOLLOW UP 2100 [facility] Last Admin: 07/04/17 20:08 Dose: Not Given . 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 Ears/Nose/Mouth/Throat: Clear Oropharnyx Neck: Trachea Midline Respiratory: Symmetrical Chest Expansion and Respiratory Effort Cardiovascular: NL Sounds; No Murmurs; No JVD Abdominal: NL Sounds; No Tenderness; No Distention Lymphatic: No Inguinal Adenopathy Extremities: No Edema Skin: No Rash or Ulcers Neurological: Alert and Oriented x 3 - but can't talk Lines/Tubes/Other Access: Clean, Dry and Intact Peripheral IV Nutrition: TEN Result Diagrams: 07/05/17 05:18 07/05/17 05:18 Microbiology and Other Data: . Diagnostic Imaging: CT chest - no obvious masses or LAD, bibasilar atelectasis Assess/Plan/Problems-Billing Mr. Nur is a 56 yo M who was admitted 06/25/17 after having SOB and being found to have a large laryngeal mass s/p emergent tracheostomy for airway protection. Subsequently, had total laryngectomy and G-tube placed 07/05/2017 without complication. Followed by ENT and general surgery. - Patient Problems (1) Laryngeal malignant neoplasm Current Visit: Yes Status: Acute Comment: The patient was found to have a near obstructing laryngeal mass on CT 06/17/17 with associated cervical lymphadenopathy. Tracheostomy was placed emergently 06/25/17. Pathology returned showing invasive squamous cell carcinoma, CT chest completed for additional staging shows no masses or significant LAD - s/p laryngectomy by Dr Navarro 07/03/2017. - PEG placed same date by general surgery Pre-operative Risk Assssmement: RCRI score 0, placing him at low risk. Reviewed recent CXR, EKG and labs. Started on nebulized LABA with prn DuoNebs to optimize respiratory status. Was no medical contraindication to planned procedure. (2) Impaired swallowing Current Visit: Yes Status: Acute Priority: High Comment: - G-tube placed by Dr Ronquillo after laryngectomy. - Advancing TEN rate to 60 cc/hr (goal). (3) Tobacco abuse Current Visit: Yes Status: Chronic Priority: Medium Code(s): Z72.0 - TOBACCO USE Comment: - Nicotine replacement as needed (4) DVT prophylaxis Current Visit: Yes Status: Acute Priority: Medium Code(s): [id number] - Comment: - SQ heparin (5) Full code status Current Visit: Yes Status: Acute Priority: High Code(s): Z78.9 - OTHER SPECIFIED HEALTH STATUS Status and Disposition: Inpatient. Laryngectomy 07/03/17, // ICU post procedure.
[2017-07-05] MEDS: Nicotine Patch Removal NOTE FOLLOW UP SCH (19:06)
[2017-07-06] MEDS: Heparin VIAL(*) 5000 UNITS/ML VIAL (FIVE THOUSAND) SUBCUT SCH ×3 (05:41→21:38)
[2017-07-06] MEDS: Clindamycin 900 MG IVPREMIX(* 900 MG/50 ML SDV IV SCH ×3 (05:41→21:38)
[2017-07-06 05:58] LABS: Albumin 2.6 g/dL (3.2-5.2); BUN/Creatinine Ratio 13.6 (8-20); Calcium 8.5 mg/dL (8.6-10.3); EGFR African American 180.8 (>60); EGFR Non-African American 140.6 (>60); Globulin 3.1 g/dL (2-4); Potassium 3.9 mmol/L (3.5-5.0); Total Bilirubin 0.3 mg/dL (0.2-1.0); Total Protein 5.7 g/dL (6.4-8.9)
[2017-07-06] MEDS: fentaNYL* 50 MCG/ML 2 ML VIAL (100 MCG VIAL) IV PRN ×2 (08:12→19:59)
[2017-07-06] MEDS: Nicotine PATCH 21 MG/24 HR* PATCH TRANSDERM SCH (08:53)
[2017-07-06] MEDS: FORMOTEROL INH SCH ×2 (09:16→20:13)
[2017-07-06] MEDS: HYDROcodone/ACET. 7.5/325 LIQ* 15 ML UDC G TUBE PRN ×3 (09:18→21:38)
--- NOTE | 2017-07-06 10:28 | PN ---
Progress Note - Progress Note Date of Service: 07/06/17 SOAP: Subjective: Reports no complaints today. Answers questions with head movement, using writing pad on occasions. Denies abdominal pain, nausea, fever or chills. Objective: Vitals reviewed, stable, afebrile Abdomen soft, NT, ND. G-tube insertion site clean and dry. Feeding rate at 30ml/ hr, tolerated, no reflux noted. No leakage. Ext. without edema Labs noted Assessment: A 57 y/o male, s/p laryngectomy and laparoscopic G-tube placement, doing well. Plan: Continue tube feeding as instructed, goal to reach 60 ml/hr as tolerated. Please call us if any issues with tube feeding. Will follow periodically during this admission.
[2017-07-06] MEDS: Nicotine Patch Removal NOTE FOLLOW UP SCH (21:40)
--- NOTE | 2017-07-06 23:49 | PN ---
Subjective Date of Service: 07/06/17 Interval History: . doing well still tolerating TEN - will increase rate to 45 cc/hr Surgery and ENT are involved. OK to transfer out of ICU from medicine perspective. . Family History: Unchanged from Admission Social History: Unchanged from Admission Past Medical History: Unchanged from Admission Objective Active Medications: . Hydrocodone Bitart/Acetaminophen (Nortab 7.5/325 Liq*) 15 ml G TUBE Q4H PRN PRN Reason: PAIN Last Admin: 07/06/17 21:38 Dose: 15 ml Albuterol/Ipratropium (Duoneb (Albuterol 2.5 Mg/Ipratropium 0.5 Mg)) 1 neb INH Q4H PRN PRN Reason: SOB/WHEEZING Fentanyl Citrate (Fentanyl*) 50 mcg IV Q2H PRN PRN Reason: PAIN Last Admin: 07/06/17 19:59 Dose: 50 mcg Formoterol Fumarate (Perforomist Neb.Soln*(Nf)) 20 mcg INH RT.BID [facility] Last Admin: 07/06/17 20:13 Dose: 20 mcg Heparin Sodium (Porcine) (Heparin Vial(*)) 5,000 units SUBCUT Q8HR [facility] Last Admin: 07/06/17 21:38 Dose: 5,000 units Lactated Ringer's (Lactated Ringers 1000 Ml Bag*) 1,000 mls @ 125 mls/hr IV PER RATE [facility] Last Admin: 07/06/17 18:30 Dose: 125 mls/hr Lorazepam (Ativan Inj*) 0.5 mg IV PUSH Q6H PRN PRN Reason: ANXIETY Nicotine (Nicotine Patch 21 Mg/24 Hr*) 1 patch TRANSDERM DAILY@0800 [facility] Last Admin: 07/06/17 08:53 Dose: Not Given Ondansetron HCl (Zofran Inj*) 4 mg IV Q6H PRN PRN Reason: NAUSEA Last Admin: 07/01/17 19:41 Dose: 4 mg Pharmacy Profile Note (Nicotine Patch Removal Note*) 1 note FOLLOW UP 2100 [facility] Last Admin: 07/06/17 21:40 Dose: Not Given . Vital Signs 07/06/17 07/06/17 07/06/17 00:00 01:00 02:00 Temperature Pulse Rate 60 60 64 Respiratory 20 24 20 Rate Blood Pressure 103/61 95/58 98/59 (mmHg) O2 Sat by Pulse 92 95 95 Oximetry 07/06/17 07/06/17 07/06/17 03:00 04:00 04:36 Temperature 97.2 F Pulse Rate 57 61 62 Respiratory 18 19 17 Rate Blood Pressure 99/59 102/61 105/68 (mmHg) O2 Sat by Pulse 94 95 96 Oximetry Oxygen Devices in Use Now: Tracheostomy Collar Appearance: NAD / writing on whiteboard to communicate. trach in place Eyes: No Scleral Icterus Ears/Nose/Mouth/Throat: - - trach collar in place Neck: Trachea Midline Respiratory: Symmetrical Chest Expansion and Respiratory Effort Cardiovascular: NL Sounds; No Murmurs; No JVD Abdominal: NL Sounds; No Tenderness; No Distention, - - PEG in pace and fx'al Lymphatic: No Cervical Adenopathy Extremities: No Edema Skin: No Rash or Ulcers Neurological: Alert and Oriented x 3, NL Sensation Lines/Tubes/Other Access: Clean, Dry and Intact Peripheral IV Nutrition: TEN Result Diagrams: 07/05/17 05:18 07/06/17 05:25 Microbiology and Other Data: . Diagnostic Imaging: CT chest - no obvious masses or LAD, bibasilar atelectasis Assess/Plan/Problems-Billing Mr. Nur is a 56 yo M who was admitted 06/25/17 after having SOB and being found to have a large laryngeal mass s/p emergent tracheostomy for airway protection. Subsequently, had total laryngectomy and G-tube placed 07/05/2017 without complication. Followed by ENT and general surgery. - Patient Problems (1) Laryngeal malignant neoplasm Current Visit: Yes Status: Acute Comment: The patient was found to have a near obstructing laryngeal mass on CT 06/17/17 with associated cervical lymphadenopathy. Tracheostomy was placed emergently 06/25/17. Pathology returned showing invasive squamous cell carcinoma, CT chest completed for additional staging shows no masses or significant LAD - s/p laryngectomy by Dr Navarro 07/03/2017. - PEG placed same date by general surgery Pre-operative Risk Assssmement: RCRI score 0, placing him at low risk. Reviewed recent CXR, EKG and labs. Started on nebulized LABA with prn DuoNebs to optimize respiratory status. There was no medical contraindication to planned procedure. (2) Impaired swallowing Current Visit: Yes Status: Acute Priority: High Comment: - G-tube placed by Dr Ronquillo after laryngectomy. - Advancing TEN rate to 60 cc/hr (goal). (3) Tobacco abuse Current Visit: Yes Status: Chronic Priority: Medium Code(s): Z72.0 - TOBACCO USE Comment: - Nicotine replacement as needed (4) DVT prophylaxis Current Visit: Yes Status: Acute Priority: Medium Code(s): [id number] - Comment: - SQ heparin (5) Full code status Current Visit: Yes Status: Acute Priority: High Code(s): Z78.9 - OTHER SPECIFIED HEALTH STATUS Status and Disposition: Inpatient. Laryngectomy 07/03/17, // ICU post procedure.
[2017-07-07] MEDS: HYDROcodone/ACET. 7.5/325 LIQ* 15 ML UDC G TUBE PRN ×3 (02:40→15:09)
[2017-07-07] MEDS: fentaNYL* 50 MCG/ML 2 ML VIAL (100 MCG VIAL) IV PRN ×2 (05:43→09:19)
[2017-07-07] MEDS: Heparin VIAL(*) 5000 UNITS/ML VIAL (FIVE THOUSAND) SUBCUT SCH ×3 (05:44→22:37)
[2017-07-07] MEDS: Nicotine PATCH 21 MG/24 HR* PATCH TRANSDERM SCH (07:28)
[2017-07-07] MEDS: FORMOTEROL INH SCH ×2 (08:34→20:14)
--- NOTE | 2017-07-07 18:25 | PN ---
Subjective Date of Service: 07/07/17 Interval History: . denies new s/sx transferred to [facility] today TEN increased to 45 cc/hr Family History: Unchanged from Admission Social History: Unchanged from Admission Past Medical History: Unchanged from Admission Objective Active Medications: . Hydrocodone Bitart/Acetaminophen (Nortab 7.5/325 Liq*) 15 ml G TUBE Q4H PRN PRN Reason: PAIN Last Admin: 07/07/17 15:09 Dose: 15 ml Albuterol/Ipratropium (Duoneb (Albuterol 2.5 Mg/Ipratropium 0.5 Mg)) 1 neb INH Q4H PRN PRN Reason: SOB/WHEEZING Fentanyl Citrate (Fentanyl*) 50 mcg IV Q2H PRN PRN Reason: PAIN Last Admin: 07/07/17 09:19 Dose: 50 mcg Formoterol Fumarate (Perforomist Neb.Soln*(Nf)) 20 mcg INH RT.BID [facility] Last Admin: 07/07/17 08:34 Dose: 20 mcg Heparin Sodium (Porcine) (Heparin Vial(*)) 5,000 units SUBCUT Q8HR [facility] Last Admin: 07/07/17 15:09 Dose: 5,000 units Lactated Ringer's (Lactated Ringers 1000 Ml Bag*) 1,000 mls @ 125 mls/hr IV PER RATE [facility] Last Admin: 07/07/17 10:41 Dose: 125 mls/hr Lorazepam (Ativan Inj*) 0.5 mg IV PUSH Q6H PRN PRN Reason: ANXIETY Nicotine (Nicotine Patch 21 Mg/24 Hr*) 1 patch TRANSDERM DAILY@0800 [facility] Last Admin: 07/07/17 07:28 Dose: Not Given Ondansetron HCl (Zofran Inj*) 4 mg IV Q6H PRN PRN Reason: NAUSEA Last Admin: 07/01/17 19:41 Dose: 4 mg Pharmacy Profile Note (Nicotine Patch Removal Note*) 1 note FOLLOW UP 2100 [facility] Last Admin: 07/06/17 21:40 Dose: Not Given . Vital Signs 07/06/17 07/06/17 07/06/17 19:00 19:55 19:59 Temperature Pulse Rate 82 Respiratory 18 17 17 Rate Blood Pressure 137/72 (mmHg) O2 Sat by Pulse 96 Oximetry 07/06/17 07/06/17 07/06/17 20:00 20:13 20:14 Temperature 99.2 F Pulse Rate 65 63 63 Respiratory 22 16 17 Rate Blood Pressure 109/72 109/72 109/72 (mmHg) O2 Sat by Pulse 94 97 98 Oximetry Oxygen Devices in Use Now: Tracheostomy Collar Appearance: NAD Eyes: PERRLA Ears/Nose/Mouth/Throat: Clear Oropharnyx Neck: - - s/p laryngectomy --> trach collar. Respiratory: Symmetrical Chest Expansion and Respiratory Effort Cardiovascular: NL Sounds; No Murmurs; No JVD Abdominal: NL Sounds; No Tenderness; No Distention, - - G-tube fx'al Extremities: No Edema Skin: No Rash or Ulcers Neurological: Alert and Oriented x 3 Lines/Tubes/Other Access: Clean, Dry and Intact Peripheral IV Nutrition: Taking PO's Result Diagrams: 07/05/17 05:18 07/06/17 05:25 Microbiology and Other Data: . Diagnostic Imaging: CT chest - no obvious masses or LAD, bibasilar atelectasis Assess/Plan/Problems-Billing Mr. Nur is a 56 yo M who was admitted 06/25/17 after having SOB and being found to have a large laryngeal mass s/p emergent tracheostomy for airway protection. Subsequently, had total laryngectomy and G-tube placed 07/05/2017 without complication. Followed by ENT and general surgery. - Patient Problems (1) Laryngeal malignant neoplasm Current Visit: Yes Status: Acute Comment: The patient was found to have a near obstructing laryngeal mass on CT 06/17/17 with associated cervical lymphadenopathy. Tracheostomy was placed emergently 06/25/17. Pathology returned showing invasive squamous cell carcinoma, CT chest completed for additional staging shows no masses or significant LAD - s/p laryngectomy by Dr Navarro 07/03/2017. - PEG placed same date by general surgery Pre-operative Risk Assssmement: RCRI score 0, placing him at low risk. Reviewed recent CXR, EKG and labs. Started on nebulized LABA with prn DuoNebs to optimize respiratory status. There was no medical contraindication to planned procedure. (2) Impaired swallowing Current Visit: Yes Status: Acute Priority: High Comment: - G-tube placed by Dr Ronquillo after laryngectomy. - Advancing TEN rate to 60 cc/hr (goal). (3) Tobacco abuse Current Visit: Yes Status: Chronic Priority: Medium Code(s): Z72.0 - TOBACCO USE Comment: - Nicotine replacement as needed (4) DVT prophylaxis Current Visit: Yes Status: Acute Priority: Medium Code(s): [id number] - Comment: - SQ heparin (5) Full code status Current Visit: Yes Status: Acute Priority: High Code(s): Z78.9 - OTHER SPECIFIED HEALTH STATUS Status and Disposition: Inpatient. Laryngectomy 07/03/17, // ICU post procedure --> [facility] 07/07/2017.
[2017-07-07] MEDS: Nicotine Patch Removal NOTE FOLLOW UP SCH (22:41)
[2017-07-08] MEDS: Heparin VIAL(*) 5000 UNITS/ML VIAL (FIVE THOUSAND) SUBCUT SCH ×3 (06:21→21:55)
[2017-07-08] MEDS: FORMOTEROL INH SCH ×2 (07:21→20:37)
[2017-07-08] MEDS: Nicotine PATCH 21 MG/24 HR* PATCH TRANSDERM SCH (07:56)
[2017-07-08] MEDS: HYDROcodone/ACET. 7.5/325 LIQ* 15 ML UDC G TUBE PRN ×2 (15:55→21:47)
--- NOTE | 2017-07-08 17:34 | PN ---
Subjective Date of Service: 07/08/17 Interval History: No c/o, denies pain, cough, SOB, much resp secretions. No hungry. Family History: Unchanged from Admission Social History: Unchanged from Admission Past Medical History: Unchanged from Admission Objective Active Medications: Hydrocodone Bitart/Acetaminophen (Nortab 7.5/325 Liq*) 15 ml G TUBE Q4H PRN PRN Reason: PAIN Last Admin: 07/08/17 15:55 Dose: 15 ml Albuterol/Ipratropium (Duoneb (Albuterol 2.5 Mg/Ipratropium 0.5 Mg)) 1 neb INH Q4H PRN PRN Reason: SOB/WHEEZING Fentanyl Citrate (Fentanyl*) 50 mcg IV Q2H PRN PRN Reason: PAIN Last Admin: 07/07/17 09:19 Dose: 50 mcg Formoterol Fumarate (Perforomist Neb.Soln*(Nf)) 20 mcg INH RT.BID [facility] Last Admin: 07/08/17 07:21 Dose: 20 mcg Heparin Sodium (Porcine) (Heparin Vial(*)) 5,000 units SUBCUT Q8HR [facility] Last Admin: 07/08/17 13:44 Dose: 5,000 units Lorazepam (Ativan Inj*) 0.5 mg IV PUSH Q6H PRN PRN Reason: ANXIETY Ondansetron HCl (Zofran Inj*) 4 mg IV Q6H PRN PRN Reason: NAUSEA Last Admin: 07/01/17 19:41 Dose: 4 mg Vital Signs 07/07/17 07/07/17 07/07/17 19:14 20:00 20:23 Temperature 98.5 F Pulse Rate 68 65 Respiratory 16 16 20 Rate Blood Pressure 116/59 (mmHg) O2 Sat by Pulse 98 99 Oximetry 07/07/17 07/08/17 07/08/17 23:45 03:26 07:21 Temperature 98.7 F 98.3 F 99.5 F Pulse Rate 63 67 69 Respiratory 14 19 20 Rate Blood Pressure 120/66 129/69 128/62 (mmHg) O2 Sat by Pulse 99 97 92 Oximetry 07/08/17 07/08/17 07/08/17 07:31 08:00 11:38 Temperature 98.9 F Pulse Rate 71 101 Respiratory 17 17 16 Rate Blood Pressure 119/62 (mmHg) O2 Sat by Pulse 99 94 Oximetry 07/08/17 07/08/17 07/08/17 12:15 15:19 15:55 Temperature 98.7 F Pulse Rate 66 72 Respiratory 17 20 Rate Blood Pressure 108/66 (mmHg) O2 Sat by Pulse 94 Oximetry Oxygen Devices in Use Now: Tracheostomy Collar Appearance: Alert, sitting on the edge of his bed. In good spirits. Looks comfortable. Respiratory: Symmetrical Chest Expansion and Respiratory Effort, Clear to Auscultation, Clear to Percussion Cardiovascular: NL Sounds; No Murmurs; No JVD, RRR, No Edema, - Extremities: No Edema, No Clubbing, Cyanosis, - Skin: No Rash or Ulcers, No Nodules or Sclerosis, - Neurological: Alert and Oriented x 3 - Communicates well with whiteboard. No tremor. Moves all limbs. , NL Sensation Result Diagrams: 07/05/17 05:18 07/06/17 05:25 Microbiology and Other Data: . Diagnostic Imaging: CT chest - no obvious masses or LAD, bibasilar atelectasis Assess/Plan/Problems-Billing Mr. Nur is a 56 yo M who was admitted 06/25/17 after having SOB and being found to have a large laryngeal mass s/p emergent tracheostomy for airway protection. Subsequently, had total laryngectomy and G-tube placed 07/05/2017 without complication. Followed by ENT and general surgery. - Patient Problems (1) Laryngeal malignant neoplasm Current Visit: Yes Status: Acute Comment: The patient was found to have a near obstructing laryngeal mass on CT 06/17/17 with associated cervical lymphadenopathy. Tracheostomy was placed emergently 06/25/17. Pathology returned showing invasive squamous cell carcinoma, CT chest completed for additional staging shows no masses or significant LAD - s/p laryngectomy by Dr Navarro 07/03/2017. - PEG placed same date by general surgery (2) Tobacco abuse Current Visit: Yes Status: Chronic Priority: Medium Code(s): Z72.0 - TOBACCO USE SNOMED Code(s): 101157838 Comment: No nicotine replacement since 06/29, patient does not want any. (3) Impaired swallowing Current Visit: Yes Status: Acute Priority: High Comment: - G-tube placed by Dr Ronquillo after laryngectomy. Scheduled transition to 2 cans Jevity 1.2 tid with flushes. Status and Disposition: Inpatient. Laryngectomy 07/03/17, // ICU post procedure --> transferred to [facility] 07/07/2017.
[2017-07-09] MEDS: Heparin VIAL(*) 5000 UNITS/ML VIAL (FIVE THOUSAND) SUBCUT SCH ×4 (06:33→22:01)
[2017-07-09] MEDS: FORMOTEROL INH SCH ×2 (08:16→20:20)
[2017-07-09] MEDS: HYDROcodone/ACET. 7.5/325 LIQ* 15 ML UDC G TUBE PRN ×2 (14:16→23:16)
--- NOTE | 2017-07-09 14:20 | PN ---
Subjective Date of Service: 07/09/17 Interval History: Pt c/o intermittent pain R shoulder since his operation. He denies SOB or other c/o. Family History: Unchanged from Admission Social History: Unchanged from Admission Past Medical History: Unchanged from Admission Objective Active Medications: Hydrocodone Bitart/Acetaminophen (Nortab 7.5/325 Liq*) 15 ml G TUBE Q4H PRN PRN Reason: PAIN Last Admin: 07/08/17 21:47 Dose: 15 ml Albuterol/Ipratropium (Duoneb (Albuterol 2.5 Mg/Ipratropium 0.5 Mg)) 1 neb INH Q4H PRN PRN Reason: SOB/WHEEZING Formoterol Fumarate (Perforomist Neb.Soln*(Nf)) 20 mcg INH RT.BID [facility] Last Admin: 07/09/17 08:16 Dose: 20 mcg Heparin Sodium (Porcine) (Heparin Vial(*)) 5,000 units SUBCUT Q8HR [facility] Last Admin: 07/09/17 06:33 Dose: 5,000 units Lorazepam (Ativan Inj*) 0.5 mg IV PUSH Q6H PRN PRN Reason: ANXIETY Ondansetron HCl (Zofran Inj*) 4 mg IV Q6H PRN PRN Reason: NAUSEA Last Admin: 07/01/17 19:41 Dose: 4 mg Vital Signs 07/08/17 07/08/17 07/08/17 15:19 15:55 17:50 Temperature 98.7 F Pulse Rate 72 Respiratory 17 20 18 Rate Blood Pressure 108/66 (mmHg) O2 Sat by Pulse 94 Oximetry 07/08/17 07/08/17 07/08/17 19:53 20:39 21:45 Temperature 99.0 F Pulse Rate 76 86 Respiratory 19 20 20 Rate Blood Pressure 127/68 (mmHg) O2 Sat by Pulse 93 97 Oximetry 07/08/17 07/08/17 07/09/17 21:47 23:36 03:54 Temperature 98.7 F 98.5 F Pulse Rate 67 62 Respiratory 20 18 14 Rate Blood Pressure 114/64 124/71 (mmHg) O2 Sat by Pulse 97 98 Oximetry 07/09/17 07/09/17 07/09/17 06:31 07:38 08:00 Temperature 98.1 F Pulse Rate 62 Respiratory 18 16 18 Rate Blood Pressure 108/72 (mmHg) O2 Sat by Pulse 97 Oximetry 07/09/17 07/09/17 07/09/17 08:19 08:20 11:34 Temperature 97.2 F Pulse Rate 64 64 66 Respiratory 18 18 16 Rate Blood Pressure 121/58 (mmHg) O2 Sat by Pulse 98 98 95 Oximetry Oxygen Devices in Use Now: Tracheostomy Collar Appearance: Alert, sitting on the edge of his bed. In fair spirits. Looks a little uncomfortable. Eyes: No Scleral Icterus Respiratory: Symmetrical Chest Expansion and Respiratory Effort, Clear to Auscultation, Clear to Percussion Cardiovascular: NL Sounds; No Murmurs; No JVD, RRR, No Edema, - Skin: No Rash or Ulcers, No Nodules or Sclerosis, - Neurological: Alert and Oriented x 3, NL Sensation Result Diagrams: 07/05/17 05:18 07/06/17 05:25 Microbiology and Other Data: . Diagnostic Imaging: CT chest - no obvious masses or LAD, bibasilar atelectasis Assess/Plan/Problems-Billing Mr. Nur is a 56 yo M who was admitted 06/25/17 after having SOB and being found to have a large laryngeal mass s/p emergent tracheostomy for airway protection. Subsequently, had total laryngectomy and G-tube placed 07/05/2017 without complication. Followed by ENT and general surgery. - Patient Problems (1) Laryngeal malignant neoplasm Current Visit: Yes Status: Acute Comment: The patient was found to have a near obstructing laryngeal mass on CT 06/17/17 with associated cervical lymphadenopathy. Tracheostomy was placed emergently 06/25/17. Pathology returned showing invasive squamous cell carcinoma, CT chest completed for additional staging shows no masses or significant LAD - s/p laryngectomy by Dr Navarro 07/03/2017. - PEG placed same date by general surgery. Dr. Batista planning on outpt RT. Medical Oncology consult requested. (2) Tobacco abuse Current Visit: Yes Status: Chronic Priority: Medium Code(s): Z72.0 - TOBACCO USE SNOMED Code(s): 795225815 Comment: No nicotine replacement since 06/29, patient does not want any. (3) Impaired swallowing Current Visit: Yes Status: Acute Priority: High Comment: - G-tube placed by Dr Ronquillo after laryngectomy. Scheduled transition to 2 cans Jevity 1.2 tid with flushes. (4) Right shoulder pain Current Visit: Yes Status: Acute Code(s): M25.511 - PAIN IN RIGHT SHOULDER SNOMED Code(s): 19426748 Comment: Continue PRN hydrocodone/APAP solution. Status and Disposition: Inpatient. Laryngectomy 07/03/17, // ICU post procedure --> transferred to [facility] 07/07/2017.
[2017-07-10 04:56] LABS: Hematocrit 36 % (42-52); Hemoglobin 11.9 g/dl (14.0-18.0); Mean Corpuscular HGB Conc 33 g/dl (31-36); Mean Corpuscular Hemoglobin 29 pg (27-31); Mean Corpuscular Volume 88 fL (80-94); Mean Platelet Volume 8 um3 (7.4-10.4); Red Blood Count 4.09 10^6/ul (4.0-5.4); Red Cell Distribution Width 14 % (10.5-15); White Blood Count 9.1 10^3/ul (3.5-10.8)
[2017-07-10 05:22] LABS: Albumin 3.4 g/dL (3.2-5.2); BUN/Creatinine Ratio 14.9 (8-20); Calcium 9.3 mg/dL (8.6-10.3); EGFR African American 139.2 (>60); EGFR Non-African American 108.3 (>60); Potassium 4.2 mmol/L (3.5-5.0)
[2017-07-10] MEDS: Heparin VIAL(*) 5000 UNITS/ML VIAL (FIVE THOUSAND) SUBCUT SCH ×4 (05:48→22:51)
[2017-07-10] MEDS: FORMOTEROL INH SCH ×2 (08:02→19:50)
--- NOTE | 2017-07-10 08:21 | CONSULT ---
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 Loki presented to the hospital initially on 06/17 with 4-5 months of progressive SOB with acute worsening and was found to have a large right largynx mass with supra and subglottic extension, partial effacement of the airway and cervical VALENTIN on the right. He left AMA as he had no insurance and feared that he could not afford his care. He represented 4 days later with SOB. He was advised to be transferred to [place] but refused and left. He represented 06/23 and was discharged with steroids and ENT follow up. He was admitted on 06/25 for emergent tracheostomy. He was taken to the OR on 06/25 for an emergent tracheostomy and biopsy and on 07/03 for a total laryngectomy and right neck dissection. This was notable for a 3.9 cm moderately differentiated squamous cell carcinoma with invasion into the thyroid cartilage , close right aryepiglottic mucosal margin (0.1 cm) and one large level III LN that was multiple matted nodes forming a 5.5 cm conglomerate mass with RAJEEV. He did have a preoperative PEG tube placed and chest CT without evidence of metastatic disease. He is planned for discharge today and has been seen in radiation consultation. He smoked until 1 week prior to admission. He has applied for medicaid which is pending. Allergies/Medications Medication: Hydrocodone Bitart/Acetaminophen (Nortab 7.5/325 Liq*) 15 ml G TUBE Q4H PRN PRN Reason: PAIN Last Admin: 07/09/17 23:16 Dose: 15 ml Albuterol/Ipratropium (Duoneb (Albuterol 2.5 Mg/Ipratropium 0.5 Mg)) 1 neb INH Q4H PRN PRN Reason: SOB/WHEEZING Formoterol Fumarate (Perforomist Neb.Soln*(Nf)) 20 mcg INH RT.BID ELIO Last Admin: 07/10/17 08:02 Dose: 20 mcg Heparin Sodium (Porcine) (Heparin Vial(*)) 5,000 units SUBCUT Q8HR ELIO Last Admin: 07/10/17 05:48 Dose: 5,000 units Lorazepam (Ativan Inj*) 0.5 mg IV PUSH Q6H PRN PRN Reason: ANXIETY Ondansetron HCl (Zofran Inj*) 4 mg IV Q6H PRN PRN Reason: NAUSEA Last Admin: 07/01/17 19:41 Dose: 4 mg Allergies/Adverse Reactions: Allergies Allergy/AdvReac Type Severity Reaction Status Date / Time No Known Allergies Allergy Verified 06/25/17 13:14 History - Past Medical History Other History: tobacco use. umbilical hernia repair. right eye surgery after enucleation Review of Systems - Review of Systems Constitutional Symptoms: Positive: Fatigue Dermatology: Positive: Normal Eyes: Positive: Normal, Other Thyroid: Positive: Normal Pulmonary: Positive: Shortness of Breath Cardiology: Positive: Normal, Shortness of Breath Gastroenterology: Positive: Anorexia - has a PEG tube now Negative: Other Endocrinology: Positive: Normal Neurology: Positive: Normal Psychiatry: Positive: Depression, Anxiety Physical Exam - Physical Exam Physical Examination: Vital Signs Temp Pulse Resp BP Pulse Ox 98.0 F 61 14 110/61 99 07/10/17 03:28 07/10/17 08:06 07/10/17 08:06 07/10/17 03:28 07/10/17 08:06 sitting up in nad r eye enucleation tracheostomy with bilateral neck ivan diffuse rhonchi s1 s2 nl soft clean peg in LUQ no le edema A+O x3, able to communicate by erase board nonfocal neuro exam Results - Lab Results Lab Results: 07/10/17 07/10/17 04:42 04:42 WBC 9.1 RBC 4.09 Hgb 11.9 L Hct 36 L MCV 88 MCH 29 MCHC 33 RDW 14 Plt Count 438 MPV 8 Neut % (Auto) 71.6 Lymph % (Auto) 19.6 L [place] % (Auto) 6.4 Eos % (Auto) 1.6 Baso % (Auto) 0.8 Absolute Neuts (auto) 6.5 Absolute Lymphs (auto) 1.8 Absolute Monos (auto) 0.6 Absolute Eos (auto) 0.1 Absolute Basos (auto) 0.1 Absolute Nucleated RBC 0.01 Nucleated RBC % 0.1 Sodium 138 Potassium 4.2 Chloride 102 Carbon Dioxide 30 Anion Gap 6 BUN 11 Creatinine 0.74 Est GFR ( Amer) 139.2 Est GFR (Non-Af Amer) 108.3 BUN/Creatinine Ratio 14.9 Glucose 98 Calcium 9.3 Albumin 3.4 Prealbumin 17 L Assessment and Plan Impression: 57 yo M w long standing tobacco use now sp total laryngectomy and right neck dissection for a [id number] laryngeal CA. He has high risk features of a close margin and extracapsular extension and therefore I agree with Dr. Batista's recommendation for combined modality therapy with cisplatin/RT. We discussed cisplatin at length. We reviewed the risks and side effects including but not limited to hearing loss, neuropathy, nephropathy, myelosuppression, nausea and vomiting. I have recommended a port placement for therapy, which he is in agreement with and have asked Dr. Ronquillo if he could discuss with the patient and arrange prior to July 27 (goal start date depending on healing). He will have formal chemotherapy teaching in my office on Thursday the and I will see him on the to assess healing. I have also asked our nurse navigator to meet Loki and his as I can anticipate that they will have many socioeconomic needs. He did have a chest CT prior to surgery but will need a formal PET scan to rule out metastatic disease prior to treatment. Dr. Batista is to arrange this.
--- NOTE | 2017-07-10 14:11 | PN ---
Subjective Date of Service: 07/10/17 Interval History: No c/o, as before. Family History: Unchanged from Admission Social History: Unchanged from Admission Past Medical History: Unchanged from Admission Objective Active Medications: Hydrocodone Bitart/Acetaminophen (Nortab 7.5/325 Liq*) 15 ml G TUBE Q4H PRN PRN Reason: PAIN Last Admin: 07/09/17 23:16 Dose: 15 ml Albuterol/Ipratropium (Duoneb (Albuterol 2.5 Mg/Ipratropium 0.5 Mg)) 1 neb INH Q4H PRN PRN Reason: SOB/WHEEZING Formoterol Fumarate (Perforomist Neb.Soln*(Nf)) 20 mcg INH RT.BID ELIO Last Admin: 07/10/17 08:02 Dose: 20 mcg Heparin Sodium (Porcine) (Heparin Vial(*)) 5,000 units SUBCUT Q8HR ELIO Last Admin: 07/10/17 05:48 Dose: 5,000 units Lorazepam (Ativan Inj*) 0.5 mg IV PUSH Q6H PRN PRN Reason: ANXIETY Ondansetron HCl (Zofran Inj*) 4 mg IV Q6H PRN PRN Reason: NAUSEA Last Admin: 07/01/17 19:41 Dose: 4 mg Vital Signs 07/09/17 07/09/17 07/09/17 14:16 15:21 15:49 Temperature Pulse Rate 70 Respiratory 18 18 18 Rate Blood Pressure 148/82 (mmHg) O2 Sat by Pulse Oximetry 07/09/17 07/09/17 07/09/17 19:36 19:55 19:56 Temperature 98.7 F Pulse Rate 62 Respiratory 14 18 18 Rate Blood Pressure 102/57 (mmHg) O2 Sat by Pulse 98 Oximetry 07/09/17 07/09/17 07/10/17 20:22 23:16 01:55 Temperature 98.3 F Pulse Rate 71 73 Respiratory 20 18 17 Rate Blood Pressure 102/53 (mmHg) O2 Sat by Pulse 98 96 Oximetry 07/10/17 07/10/17 07/10/17 03:28 07:26 08:06 Temperature 98.0 F 98.1 F Pulse Rate 61 64 61 Respiratory 18 18 14 Rate Blood Pressure 110/61 99/56 (mmHg) O2 Sat by Pulse 99 97 99 Oximetry 07/10/17 07/10/17 11:21 12:29 Temperature 97.5 F Pulse Rate 66 Respiratory 16 18 Rate Blood Pressure 91/45 (mmHg) O2 Sat by Pulse 98 Oximetry Oxygen Devices in Use Now: None Appearance: Standing, alert. In good spirits. Looks comfortable. Eyes: No Scleral Icterus Extremities: No Edema, No Clubbing, Cyanosis, - Skin: No Nodules or Sclerosis, - - erythema surrounding trach stoma Neurological: Alert and Oriented x 3, NL Sensation, NL Gait Result Diagrams: 07/10/17 04:42 07/10/17 04:42 Microbiology and Other Data: . Diagnostic Imaging: CT chest - no obvious masses or LAD, bibasilar atelectasis Assess/Plan/Problems-Billing Mr. Nur is a 56 yo M who was admitted 06/25/17 after having SOB and being found to have a large laryngeal mass s/p emergent tracheostomy for airway protection. Subsequently, had total laryngectomy and G-tube placed 07/05/2017 without complication. Followed by ENT and general surgery. - Patient Problems (1) Laryngeal malignant neoplasm Current Visit: Yes Status: Acute Comment: The patient was found to have a near obstructing laryngeal mass on CT 06/17/17 with associated cervical lymphadenopathy. Tracheostomy was placed emergently 06/25/17. Pathology returned showing invasive squamous cell carcinoma, CT chest completed for additional staging shows no masses or significant LAD - s/p laryngectomy by Dr Navarro 07/03/2017. - PEG placed same date by general surgery. Dr. Batista planning on outpt RT. Medical Oncology consult very much appreciated. Dr. Wyman is arranging for med port placement and appropriate teaching and fup for chemo. (2) Tobacco abuse Current Visit: Yes Status: Chronic Priority: Medium Code(s): Z72.0 - TOBACCO USE SNOMED Code(s): 027376389 Comment: No nicotine replacement since 06/29, patient does not want any. (3) Impaired swallowing Current Visit: Yes Status: Acute Priority: High Comment: - G-tube placed by Dr Ronquillo after laryngectomy. Scheduled transition to 2 cans Jevity 1.2 tid with flushes. (4) Right shoulder pain Current Visit: Yes Status: Acute Code(s): M25.511 - PAIN IN RIGHT SHOULDER SNOMED Code(s): 64818237 Comment: Continue PRN hydrocodone/APAP solution. Status and Disposition: Inpatient. Laryngectomy 07/03/17, // ICU post procedure --> transferred to [facility] 07/07/2017.
[2017-07-10] MEDS: HYDROcodone/ACET. 7.5/325 LIQ* 15 ML UDC G TUBE PRN ×2 (15:15→22:30)
--- NOTE | 2017-07-10 15:16 | PN ---
Progress Note - Progress Note Date of Service: 07/10/17 SOAP: Subjective: Patient seen at bedside today. Reports doing well, communicating with pad and marker. Denies any complaints. Plans for him to go home likely by Thursday. 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 Plan: I had a long discussion with patient and a family member. I offered proceeding with Powerport placement next Thursday; the day before . Patient elected to postpone surgery until the week after. He is healing at this time, and no plans for any chemo until first week of July. We will plan to schedule patient tentatively on Thursday07/22/17 for port placement. He does not need to follow up with us at the office prior to that. I informed him that he should hear from surgical associates office sometime before the once it' s booked.
[2017-07-11] MEDS: Heparin VIAL(*) 5000 UNITS/ML VIAL (FIVE THOUSAND) SUBCUT SCH ×3 (06:31→23:02)
[2017-07-11] MEDS: FORMOTEROL INH SCH ×2 (09:54→20:13)
--- NOTE | 2017-07-11 13:29 | PN ---
Subjective Date of Service: 07/11/17 Interval History: Some R shoulder pain still. Pain controlled with liquid hydrocodone/APAP per G- tube. No other c/o. Family History: Unchanged from Admission Social History: Unchanged from Admission Past Medical History: Unchanged from Admission Objective Active Medications: Hydrocodone Bitart/Acetaminophen (Nortab 7.5/325 Liq*) 15 ml G TUBE Q4H PRN PRN Reason: PAIN Last Admin: 07/10/17 22:30 Dose: 15 ml Albuterol/Ipratropium (Duoneb (Albuterol 2.5 Mg/Ipratropium 0.5 Mg)) 1 neb INH Q4H PRN PRN Reason: SOB/WHEEZING Formoterol Fumarate (Perforomist Neb.Soln*(Nf)) 20 mcg INH RT.BID ELIO Last Admin: 07/11/17 09:54 Dose: 20 mcg Heparin Sodium (Porcine) (Heparin Vial(*)) 5,000 units SUBCUT Q8HR ELIO Last Admin: 07/11/17 06:31 Dose: 5,000 units Lorazepam (Ativan Inj*) 0.5 mg IV PUSH Q6H PRN PRN Reason: ANXIETY Ondansetron HCl (Zofran Inj*) 4 mg IV Q6H PRN PRN Reason: NAUSEA Last Admin: 07/01/17 19:41 Dose: 4 mg Vital Signs 07/10/17 07/10/17 07/10/17 15:15 15:33 19:50 Temperature 98.5 F 98.4 F Pulse Rate 77 73 Respiratory 16 22 20 Rate Blood Pressure 94/52 98/54 (mmHg) O2 Sat by Pulse 97 98 Oximetry 07/10/17 07/10/17 07/10/17 19:54 22:30 23:33 Temperature 98.8 F Pulse Rate 74 69 Respiratory 18 18 17 Rate Blood Pressure 97/51 (mmHg) O2 Sat by Pulse 99 100 Oximetry 07/11/17 07/11/17 07/11/17 02:02 03:46 07:40 Temperature 98.9 F Pulse Rate 64 Respiratory 16 16 16 Rate Blood Pressure 105/60 (mmHg) O2 Sat by Pulse 97 Oximetry 07/11/17 07/11/17 08:14 11:43 Temperature 97.9 F 98.2 F Pulse Rate 64 69 Respiratory 14 20 Rate Blood Pressure 103/62 100/57 (mmHg) O2 Sat by Pulse 97 96 Oximetry Oxygen Devices in Use Now: None - Alert, sitting in a chair. In good spirits. Looks comfortable. Cardiovascular: RRR Skin: No Nodules or Sclerosis, - - much erythema around stoma, now choroni Neurological: Alert and Oriented x 3, NL Sensation, - - communicates well by writing. Result Diagrams: 07/10/17 04:42 07/10/17 04:42 Microbiology and Other Data: . Diagnostic Imaging: CT chest - no obvious masses or LAD, bibasilar atelectasis Assess/Plan/Problems-Billing Mr. Nur is a 56 yo M who was admitted 06/25/17 after having SOB and being found to have a large laryngeal mass s/p emergent tracheostomy for airway protection. Subsequently, had total laryngectomy and G-tube placed 07/05/2017 without complication. Followed by ENT and general surgery. - Patient Problems (1) Laryngeal malignant neoplasm Current Visit: Yes Status: Acute Comment: The patient was found to have a near obstructing laryngeal mass on CT 06/17/17 with associated cervical lymphadenopathy. Tracheostomy was placed emergently 06/25/17. Pathology returned showing invasive squamous cell carcinoma, CT chest completed for additional staging shows no masses or significant LAD - s/p laryngectomy by Dr Navarro 07/03/2017. - PEG placed same date by general surgery. Dr. Batista planning on outpt RT. Medical Oncology consult very much appreciated. Dr. Wyman is arranging for med port placement and appropriate teaching and fup for chemo. (2) Tobacco abuse Current Visit: Yes Status: Chronic Priority: Medium Code(s): Z72.0 - TOBACCO USE SNOMED Code(s): 791845232 Comment: No nicotine replacement since 06/29, patient does not want any. (3) Impaired swallowing Current Visit: Yes Status: Acute Priority: High Comment: - G-tube placed by Dr Ronquillo after laryngectomy. He has reached the goal of 2 cans Jevity 1.2 tid with flushes. (4) Right shoulder pain Current Visit: Yes Status: Acute Code(s): M25.511 - PAIN IN RIGHT SHOULDER SNOMED Code(s): 64788065 Comment: Continue PRN hydrocodone/APAP solution. Status and Disposition: Inpatient. Laryngectomy 11/10/17, // ICU post procedure --> transferred to [facility] 07/07/2017.
[2017-07-11] MEDS: HYDROcodone/ACET. 7.5/325 LIQ* 15 ML UDC G TUBE PRN ×2 (13:31→20:20)
[2017-07-12] MEDS: Heparin VIAL(*) 5000 UNITS/ML VIAL (FIVE THOUSAND) SUBCUT SCH ×3 (05:31→22:55)
[2017-07-12] MEDS: FORMOTEROL INH SCH ×2 (08:45→19:53)
[2017-07-12] MEDS: HYDROcodone/ACET. 7.5/325 LIQ* 15 ML UDC G TUBE PRN ×2 (15:09→22:55)
--- NOTE | 2017-07-12 16:32 | PN ---
Subjective Date of Service: 07/12/17 Interval History: Tmax 100.0 7pm yesterday, afebrile since. without complaint. Waiting for VNS services to be setup for potential discharge early next week with planned port 07/22. Per 2nd hand RN report may have had some "leaking" when drinking ensure yesterday. Pt lives with and 2 children. Family History: Unchanged from Admission Social History: Unchanged from Admission Past Medical History: Unchanged from Admission Objective Active Medications: Hydrocodone Bitart/Acetaminophen (Nortab 7.5/325 Liq*) 15 ml G TUBE Q4H PRN PRN Reason: PAIN Last Admin: 07/12/17 15:09 Dose: 15 ml Albuterol/Ipratropium (Duoneb (Albuterol 2.5 Mg/Ipratropium 0.5 Mg)) 1 neb INH Q4H PRN PRN Reason: SOB/WHEEZING Formoterol Fumarate (Perforomist Neb.Soln*(Nf)) 20 mcg INH RT.BID ELIO Last Admin: 07/12/17 08:45 Dose: 20 mcg Heparin Sodium (Porcine) (Heparin Vial(*)) 5,000 units SUBCUT Q8HR ELIO Last Admin: 07/12/17 15:10 Dose: 5,000 units Lorazepam (Ativan Inj*) 0.5 mg IV PUSH Q6H PRN PRN Reason: ANXIETY Ondansetron HCl (Zofran Inj*) 4 mg IV Q6H PRN PRN Reason: NAUSEA Last Admin: 07/01/17 19:41 Dose: 4 mg Vital Signs 07/11/17 07/11/17 07/11/17 19:21 20:13 20:20 Temperature 100.0 F Pulse Rate 67 72 Respiratory 18 16 18 Rate Blood Pressure 105/64 (mmHg) O2 Sat by Pulse 99 99 Oximetry 07/11/17 07/11/17 07/12/17 23:00 23:51 01:00 Temperature 98.4 F Pulse Rate 83 Respiratory 16 Rate Blood Pressure 102/51 (mmHg) O2 Sat by Pulse 90 97 Oximetry 07/12/17 07/12/17 07/12/17 01:01 03:35 05:33 Temperature 98.7 F Pulse Rate 73 59 Respiratory 16 17 16 Rate Blood Pressure 96/60 (mmHg) O2 Sat by Pulse 97 100 Oximetry 07/12/17 07/12/17 07/12/17 07:39 08:50 09:11 Temperature 97.9 F Pulse Rate 63 78 Respiratory 18 14 14 Rate Blood Pressure 106/62 (mmHg) O2 Sat by Pulse 98 98 Oximetry 07/12/17 07/12/17 07/12/17 11:32 15:09 15:26 Temperature 98.8 F 97.7 F Pulse Rate 75 74 Respiratory 16 16 16 Rate Blood Pressure 108/55 105/56 (mmHg) O2 Sat by Pulse 96 95 Oximetry Oxygen Devices in Use Now: Tracheostomy Collar Appearance: Chronically ill appearing. NAD Ears/Nose/Mouth/Throat: - - s/p larngectomy with trach. Trach with some white exudate Respiratory: Symmetrical Chest Expansion and Respiratory Effort, Clear to Auscultation Cardiovascular: NL Sounds; No Murmurs; No JVD, RRR Abdominal: NL Sounds; No Tenderness; No Distention, No Hepatosplenomegaly Extremities: No Edema, No Clubbing, Cyanosis Skin: No Rash or Ulcers, No Nodules or Sclerosis Neurological: Alert and Oriented x 3, NL Muscle Strength and Tone - writing Q/A on paper. , - Lines/Tubes/Other Access: Clean, Dry and Intact Tracheostomy Nutrition: - - tube feeds Result Diagrams: 07/10/17 04:42 07/10/17 04:42 Microbiology and Other Data: . Microbiology 06/25/17 20:00 Nasal Nasal Screen MRSA (PCR)(KENNY) - Final Mrsa Negative Diagnostic Imaging: CT chest - no obvious masses or LAD; bibasilar atelectasis Assess/Plan/Problems-Billing 56 yo M admitted 06/25/17 w/ SOB 2/2 large malignant laryngeal mass s/p emergent tracheostomy for airway protection. s/p total laryngectomy and G-tube placed 05/2017 without complication. Awaiting VNS setup up for home. Planned mediport 07/22 as outpatient. Followed by ENT and general surgery. - Patient Problems (1) Laryngeal malignant neoplasm Current Visit: Yes Status: Acute Comment: Near obstructing laryngeal mass on CT 06/17/17 with associated cervical lymphadenopathy. Tracheostomy was placed emergently 06/25/17. Pathology returned showing invasive squamous cell carcinoma, CT chest completed for additional staging shows no masses or significant LAD - s/p laryngectomy by Dr Navarro 07/03/2017. - PEG placed 07/03/[address] Batista planning on outpt RT. Medical Oncology recs appreciated. Dr. Wyman is arranging for med port placement, -> Gen Surgery planning on 07/22. Teaching and fup for chemo. tube feedings. ?ensure by mouth (2) Full code status Current Visit: Yes Status: Acute Priority: High Code(s): Z78.9 - OTHER SPECIFIED HEALTH STATUS SNOMED Code(s): 190435357 (3) Impaired swallowing Current Visit: Yes Status: Acute Priority: High Comment: - G-tube placed by Dr Ronquillo after laryngectomy. He has reached the goal of 2 cans Jevity 1.2 tid with flushes. (4) Right shoulder pain Current Visit: Yes Status: Acute Code(s): M25.511 - PAIN IN RIGHT SHOULDER SNOMED Code(s): 48112119 Comment: Continue PRN hydrocodone/APAP solution. (5) Tobacco abuse Current Visit: Yes Status: Chronic Priority: Medium Code(s): Z72.0 - TOBACCO USE SNOMED Code(s): 208230905 Comment: No nicotine replacement since 06/29, patient does not want any. (6) DVT prophylaxis Current Visit: Yes Status: Acute Priority: Medium Code(s): XGF0510 - SNOMED Code(s): 773672016 Comment: - SQ heparin Status and Disposition: medicine inpatient, possible d/c home once VNS arranged. Attending: Cameron Rosario
[2017-07-13] MEDS: Heparin VIAL(*) 5000 UNITS/ML VIAL (FIVE THOUSAND) SUBCUT SCH ×3 (06:19→21:20)
[2017-07-13] MEDS: FORMOTEROL INH SCH ×2 (08:49→19:48)
--- NOTE | 2017-07-13 12:06 | PN ---
Subjective Date of Service: 07/13/17 Interval History: Pt denies complaints except some very mild pain around his PEG site. Has been suctioning himself and handling tube feeds. Family History: Unchanged from Admission Social History: Unchanged from Admission Past Medical History: Unchanged from Admission Objective Active Medications: Hydrocodone Bitart/Acetaminophen (Nortab 7.5/325 Liq*) 15 ml G TUBE Q4H PRN PRN Reason: PAIN Last Admin: 07/12/17 22:55 Dose: 15 ml Albuterol/Ipratropium (Duoneb (Albuterol 2.5 Mg/Ipratropium 0.5 Mg)) 1 neb INH Q4H PRN PRN Reason: SOB/WHEEZING Formoterol Fumarate (Perforomist Neb.Soln*(Nf)) 20 mcg INH RT.BID ELIO Last Admin: 07/13/17 08:49 Dose: 20 mcg Heparin Sodium (Porcine) (Heparin Vial(*)) 5,000 units SUBCUT Q8HR ELIO Last Admin: 07/13/17 06:19 Dose: 5,000 units Lorazepam (Ativan Inj*) 0.5 mg IV PUSH Q6H PRN PRN Reason: ANXIETY Ondansetron HCl (Zofran Inj*) 4 mg IV Q6H PRN PRN Reason: NAUSEA Last Admin: 07/01/17 19:41 Dose: 4 mg Vital Signs 07/12/17 07/12/17 07/12/17 15:09 15:26 18:27 Temperature 97.7 F Pulse Rate 74 Respiratory 16 16 16 Rate Blood Pressure 105/56 (mmHg) O2 Sat by Pulse 95 Oximetry 07/12/17 07/12/17 07/12/17 19:25 19:56 20:20 Temperature 98.4 F Pulse Rate 70 68 Respiratory 16 18 16 Rate Blood Pressure 113/54 (mmHg) O2 Sat by Pulse 96 99 Oximetry 07/12/17 07/13/17 07/13/17 22:55 00:05 02:53 Temperature 98.5 F Pulse Rate 83 Respiratory 16 17 16 Rate Blood Pressure 106/59 (mmHg) O2 Sat by Pulse 99 Oximetry 07/13/17 07/13/17 07/13/17 03:30 07:32 08:56 Temperature 97.7 F 98.3 F Pulse Rate 63 62 62 Respiratory 17 22 18 Rate Blood Pressure 104/65 105/61 (mmHg) O2 Sat by Pulse 100 99 99 Oximetry Oxygen Devices in Use Now: Tracheostomy Collar Appearance: NAD, Ears/Nose/Mouth/Throat: - - s/p trach, stoma with some mild erythema. Less exudate day prior Neck: NL Appearance and Movements; NL JVP, Trachea Midline Respiratory: Symmetrical Chest Expansion and Respiratory Effort, Clear to Auscultation Cardiovascular: NL Sounds; No Murmurs; No JVD, RRR Abdominal: - - mild tender LUQ near PEG. nondistended, soft. Extremities: No Edema, No Clubbing, Cyanosis Skin: No Rash or Ulcers, No Nodules or Sclerosis Neurological: Alert and Oriented x 3, NL Sensation, NL Muscle Strength and Tone , - - uses pad to communicate Result Diagrams: 07/10/17 04:42 07/10/17 04:42 Microbiology and Other Data: . Microbiology 06/25/17 20:00 Nasal Nasal Screen MRSA (PCR)(KENNY) - Final Mrsa Negative Diagnostic Imaging: CT chest - no obvious masses or LAD; bibasilar atelectasis Assess/Plan/Problems-Billing 56 yo M admitted 06/25/17 w/ SOB 09/25 large malignant laryngeal mass s/p emergent tracheostomy for airway protection. s/p total laryngectomy and G-tube placed 05/2017 without complication. Per ENT d/c planned 07/14 after laryngectomy healed enough to tolerate po intake. Planned mediport 07/22 as outpatient. - Patient Problems (1) Laryngeal malignant neoplasm Current Visit: Yes Status: Acute Comment: Near obstructing laryngeal mass on CT 06/17/17 with associated cervical lymphadenopathy. Tracheostomy was placed emergently 06/25/17. Pathology returned showing invasive squamous cell carcinoma, CT chest completed for additional staging shows no masses or significant LAD - s/p laryngectomy by Dr Navarro 07/03/2017. - PEG placed 07/03/[address] Batista planning on outpt RT. Medical Oncology recs appreciated. Dr. Wyman is arranging for med port placement, -> Gen Surgery planning on 07/22. Teaching and fup for chemo. tube feedings. Per ENT, d/c pending until 07/14 when swallow check and more healing at site of laryngectomy. (2) Full code status Current Visit: Yes Status: Acute Priority: High Code(s): Z78.9 - OTHER SPECIFIED HEALTH STATUS SNOMED Code(s): 264734160 (3) Impaired swallowing Current Visit: Yes Status: Acute Priority: High Comment: - G-tube placed by Dr Ronquillo after laryngectomy. He has reached the goal of 2 cans Jevity 1.2 tid with flushes. (4) Right shoulder pain Current Visit: Yes Status: Acute Code(s): M25.511 - PAIN IN RIGHT SHOULDER SNOMED Code(s): 30835920 Comment: Continue PRN hydrocodone/APAP solution. (5) Tobacco abuse Current Visit: Yes Status: Chronic Priority: Medium Code(s): Z72.0 - TOBACCO USE SNOMED Code(s): 910851356 Comment: No nicotine replacement since 06/29, patient does not want any. (6) DVT prophylaxis Current Visit: Yes Status: Acute Priority: Medium Code(s): BLD1747 - SNOMED Code(s): 085070267 Comment: - SQ heparin Status and Disposition: medicine inpatient, possible d/c home 07/14 if passing swallow w/o leak (per ENT ) Attending: Cameron Rosario
[2017-07-13] MEDS: HYDROcodone/ACET. 7.5/325 LIQ* 15 ML UDC G TUBE PRN (21:16)
[2017-07-14] MEDS: Heparin VIAL(*) 5000 UNITS/ML VIAL (FIVE THOUSAND) SUBCUT SCH ×2 (05:33→13:51)
[2017-07-14] MEDS: FORMOTEROL INH SCH (09:24)
[2017-07-14 17:03] VITALS: BP 111/67
--- NOTE | 2017-07-15 05:22 | DS ---
CC: Dr. Navarro; Dr. Batista; Dr. Wyman; Dr. Ronquillo * DISCHARGE SUMMARY: DATE OF ADMISSION: 06/25/17 DATE OF DISCHARGE: 07/14/17 PRIMARY CARE PROVIDER: None. MEDICAL ONCOLOGIST: Dr. Anahi Wyman. RADIATION ONCOLOGIST: Dr. Rohan Batista. EAR, NOSE, AND THROAT SURGEON: Dr. Navarro. CONSULTING SURGEON: Dr. Ronquillo. DISCHARGING PROVIDER: SUNITA Guerrero SUPERVISING PHYSICIAN: Dr. Doug Cline * (DICTATED BY SUNITA GUERRERO) PRIMARY DISCHARGE DIAGNOSES: 1. Laryngeal malignancy, status post laryngectomy with pending chemo and radiation therapy. 2. Impaired swallowing, with G-tube placed during hospitalization. SECONDARY DISCHARGE DIAGNOSES: 1. Suspected chronic obstructive pulmonary disease without acute exacerbation. 2. History of tobacco abuse. DISCHARGE MEDICATIONS: Hydrocodone/acetaminophen 7.5/325 liquid with instructions to take 15 mL p.o. q.6 hours as needed for pain. HOSPITAL IMAGIN. Chest x-ray, 06/25/17, shows no acute process. 2. Chest x-ray, 06/27/17, shows no acute process, but a feeding tube present at the GE junction. 3. CT chest shows bibasilar atelectasis. No obvious nodularity. 4. X-ray of the abdomen, 07/04/17, shows a gastrostomy tube with oral contrast within the lumen of the upper GI tract without extravasation. PATHOLOGY: 1. 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 2. 07/03/17 shows node dissection, demonstrates metastatic squamous cell carcinoma involving multiple level 1 matted lymph nodes forming a 5.5-cm mass with extracapillary extension. There is 0 of 19 level 2 lymph nodes positive for metastatic disease, 1 of 8 level 3 lymph nodes is positive for metastatic disease. Laryngectomy demonstrates invasive squamous cell carcinoma, which is moderately differentiated, tumor size 3.9 cm at its greatest diameter with lympho-vascular invasion and cartilage invasion. Margins are clear but tight to 0.1 cm in one dimension. 3. TNM histopathologic staging is [id number]. HOSPITAL COURSE: This is a 57-year-old gentleman who had previously not been established with any medical services who presented to the emergency department with complaints of shortness of breath. The patient had been symptomatic for several months prior to his hospitalization, had been seen in the emergency department at least on 2 prior occasions but had left again medical advice due to his concerns about affording appropriate healthcare as he was uninsured and unemployed. The patient was noted to have a nearly obstructing laryngeal mass and underwent urgent tracheostomy by Dr. Navarro. Biopsy performed at the time of tracheostomy placement demonstrated invasive squamous cell carcinoma. The patient did not experience any complication following his tracheostomy due to the presence of malignancy and large size of the tumor and its nearly obstructing nature. Laryngectomy was indicated and originally recommendations were for transfer to a tertiary care center which the patient declined. The patient underwent laryngectomy with Dr. Navarro on 07/03/17. A G-tube was surgically placed by Dr. Ronquillo at the same time due to anticipation of prolonged period of time with difficulty or inability to swallow following surgery. Again, the patient tolerated the procedure quite well without any significant postoperative complications. Pathology from the procedure is outlined above. He did have large matted mass of lymph nodes and large laryngeal tumor with close margins. Medical and Radiation Oncology were consulted. Due to high- risk features, chemo and radiation therapy were recommended which will start following confirmation of postoperative healing from ENT surgeon, Dr. Navarro. There are multiple confounding social factors that complicated this patient's hospital stay. He was able to apply for Medicaid during this hospitalization, which is active at the time of discharge. Resources otherwise have been fairly limited and Social Work was intimately involved in the discharge process. At the time of discharge, the patient has been instructed on how to perform his own postlaryngectomy care and has been cleaning the area with forceps and suctioning independently. He has been able to self-administer bolus feedings via his G-tube with little difficulty. DISPOSITION AND FOLLOWUP PLAN: The patient is being discharged to home with a referral to visiting nurse service. Home suction has been ordered for him and the patient will receive tube feedings through the same home care agency. The patient will see Dr. Anahi Wyman later this week with plans for port placement by the end of the month with plan for initiation of chemotherapy tentatively the first part of July. The patient will follow up with Dr. Navarro on 07/20/17. He is to remain n.p.o. until reevaluated by Dr. Navarro in his office on Thursday to confirm full healing of the laryngectomy site. The patient will then see Dr. Batista, radiation oncologist, later on Thursday as well for radiation planning. The patient will require PET scan completed as an outpatient, to be coordinated by Oncology prior to initiating therapy as well. The patient has received extensive counseling against resuming smoking and he seems quite motivated to remain tobacco free. SUNITA GUERRERO [id number]/[facility] #: [id number] HARRIET
== END 2017-07-14 16:50 | disposition home health service (06) | DRG 90 ==
LOC: OR 16:30 → ICU 16:43 → SSU 06-30 14:56 → ICU 07-03 20:24 → SSU 07-07 15:42
PROVIDERS: ADMIT Hospitalist; ATTEND Internal Medicine
PROC: 0B110F4 Bypass Trachea to Cutaneous with Tracheostomy Device, Open Approach (ICD-10-PCS; 2017-06-25)
PROC: 0CBT8ZX Excision of Right Vocal Cord, Via Natural or Artificial Opening Endoscopic, Diagnostic (ICD-10-PCS; 2017-06-25)
PROC: 0DH64UZ Insertion of Feeding Device into Stomach, Percutaneous Endoscopic Approach (ICD-10-PCS; 2017-07-03)
PROC: 0CTS0ZZ Resection of Larynx, Open Approach (ICD-10-PCS; principal; 2017-07-03 10:00)
PROC: 07T10ZZ Resection of Right Neck Lymphatic, Open Approach (ICD-10-PCS; 2017-07-03 10:00)
DX: C32.9 Malignant neoplasm of larynx, unspecified (principal); J98.11 Atelectasis; R13.10 Dysphagia, unspecified; C77.0 Secondary and unspecified malignant neoplasm of lymph nodes of head, face and neck; F17.210 Nicotine dependence, cigarettes, uncomplicated; J44.9 Chronic obstructive pulmonary disease, unspecified; R59.0 Localized enlarged lymph nodes; M25.511 Pain in right shoulder; Z56.0 Unemployment, unspecified; Z82.49 Family history of ischemic heart disease and other diseases of the circulatory system
CPT/HCPCS: 36415; 71010; 71260; 74000; 80048; 80053; 82040; 83735; 84134; 85025; 85730; 86850; 86900; 86901; 87641; 88305; 88307; 88311; 88342; 93005; 94640; 94760; 99406; A9270-GY; C1776; J0171; J0690; J1100; J1644; J2250; J2270; J2405; J2704; J3010; L8509; Q9967

== ENCOUNTER 2017-07-22 10:16 | Day surgery (SDC) | payer MEDICAID ==
[~2017-07-22 10:16] MED LIST changes: -Dexamethasone IV* 4 MG/ML 1 ML (4 MG) IV SLOW PU ONE; -Dexamethasone IV* 4 MG/ML 1 ML (4 MG) ONE; -EPINEPHrine AMP 1 MG/ML ONE; -Famotidine IV* 10 MG/ML 2 ML (20 mg) IV ONE; -Famotidine IV* 10 MG/ML 2 ML (20 mg) ONE; -Levalbuterol 0.63MG/3ML NEB* UNIT OF USE INH ONE; -Levalbuterol 1.25MG/0.5ML NEB ONE; -Lidocaine 2% EPI 1:200000 MPF* 20 ML VIAL ONE; -Lidocaine 2% PF * 5 ML VIAL ONE; -Lidocaine 4% TOPICAL* 50 ML TOP.SOLN ONE; -Midazolam* 1 MG/ML 5 ML VIAL (5 MG) ONE; -Mivacurium Chloride* 20 MG/10 ML VIAL IV ONE; -Ondansetron INJ* 2 MG/ML VIAL ONE; -Oxymetazoline 0.05% NASAL SPR* 15 ML BTL ONE; -Propofol* 10 MG/ML 20 ML BTL IV PUSH ONE; -fentaNYL* 50 MCG/ML 2 ML VIAL (100 MCG VIAL) ONE
[2017-07-22] MEDS ORDERED: Buffered Lidocaine 0.9% SYRIN* 5 ML/SYR SYRINGE ONE ×2 (10:30)
[2017-07-22] MEDS ORDERED: ceFAZolin 2 GM PREMIX (*) 2 GM/50 ML BAG IVPB ONE ×2 (10:30)
[2017-07-22] MEDS ORDERED: Lidocaine 1% MPF wEPI 200,000* 30 ML SDV ONE ×2 (13:20)
[2017-07-22] MEDS ORDERED: Midazolam* 1 MG/ML 2 ML VIAL (2 MG) ONE ×4 (13:40→14:02)
[2017-07-22] MEDS ORDERED: fentaNYL* 50 MCG/ML 2 ML VIAL (100 MCG VIAL) ONE ×2 (13:41)
[2017-07-22] MEDS ORDERED: Iohexol 180 (CONTRAST) 10 ML SDV IV ONE (14:37)
[2017-07-22 15:30] VITALS: BP 111/67
--- NOTE | 2017-07-22 15:43 | RAD ---
Indication: Shortness of breath, hoarseness. Single frontal view of the chest performed at 1525 hours was reviewed. Comparison is made with previous exam dated June 28, 2017. No mediastinal shift is noted. Heart is of normal size and configuration. Lung canales appear clear. Right-sided Port-A-Cath is in place with no evidence of pneumothorax. IMPRESSION: NO ACTIVE CARDIOPULMONARY DISEASE IS NOTED. Right-sided Port-A-Cath is in place. No pneumothorax is noted.
--- NOTE | 2017-07-22 16:12 | RAD ---
INDICATION: Power port insertion. COMPARISON: Comparison is made with prior chest x-ray study from June 27, 2017. TECHNIQUE: 260 seconds of intermittent fluoroscopic guidance were provided and 5 spot films of the chest were obtained in the operating room. FINDINGS: The films demonstrate placement of a power port central venous catheter entering on the right side. The catheter tip projects over the region of the right atrium. IMPRESSION: INTRAOPERATIVE CONTROL FILMS. CPT II Codes: 6045F
--- NOTE | 2017-07-23 22:16 | OP ---
CC: Dr. Brandon Navarro; Dr. Anahi Wyman; Dr. Rohan Batista * DATE OF PROCEDURE: 07/22/17 - [facility] DATE OF : 56 SURGEON: Cornell Ronquillo MD FINGERNAIL TECHNICIAN: None. ANESTHESIOLOGIST: Tyler Fajardo MD ANESTHESIA: Local MAC anesthesia. PRE-OP DIAGNOSIS: Laryngeal cancer. POST-OP DIAGNOSIS: Laryngeal cancer. OPERATIVE PROCEDURE: Insertion of PowerPort. ESTIMATED BLOOD LOSS: Minimal blood loss. FLUIDS: Minimal crystalloid fluid given. SPECIMEN: None. COUNTS: Lap pad count, instrument count correct at the end of the procedure. DESCRIPTION OF PROCEDURE: The patient was identified in the preoperative area. I then marked. Consent signed. Case discussed. I detailed the procedure going over the risks, benefits, and alternatives with Mr. Nur. I spoke of the possible complications which include but are not limited to bleeding, infection , need for removal of the PowerPort, hemothorax, pneumothorax, need for possible chest tube and malfunction. The patient's questions were answered. He utilized a notebook to inquire, but he could understand. He was then taken back to the operating suite. The patient was placed in the supine position. Preoperative antibiotics given. General sedation was given. Sequential devices were placed on bilateral lower extremities and the patient's right upper chest was prepped and draped sterilely. Time-out was performed. We injected lidocaine for local block. We accessed the right subclavian vein, inserted a wire and under fluoroscopy, we could not advance this wire as it kept on curling up. We attempted needle stick just medial to this. Again, we accessed the vein quickly and again wire would not advance to the superior vena cava. At this point, a Glidewire was used and we were able to snake this wire in to the superior vena cava. Once this was performed, skin holly was made and a dilator was inserted under fluoroscopy along with the split-away catheter. With this in place, the wire and dilator were removed. An incision was made just inferior to this and the 8- Swiss tubing for the PowerPort was then tunneled from the incision inferior to this where a pocket was created to the stick site. The tubing was then placed through the split-away catheter. Under fluoroscopy, we noted that it extended towards the left side as the split-away catheter somewhat moved. The tubing was then removed from this catheter. Dilator was reinserted and we were not extending inferiorly. For this reason, it was backed up. Guidewire was then inserted and we were able to get the dilator with the split-away catheter in the appropriate orientation. Wire was removed and we aspirated blood with ease from the dilated portion of the catheter. Dilator was then removed. Tubing was then placed again with ease and it extended into the heart. The split-away catheter was then removed and the tubing was measured and cut to size. It was then connected to the pre- flushed PowerPort, which was sutured into the pocket with 0 Prolene sutures at the medial aspect, lateral aspect, and at the hub. We were able to easily inject saline, but could not aspirate. For this reason, I did a venogram injecting contrast and this was 10 cc of 180 Omnipaque. This did extend to the heart, did not extend to any of the soft tissue structures. I felt confident that the tubing was in the appropriate positioning for the purpose of injection and we irrigated the wound and reapproximated the skin with 3-0 Polysorb sutures followed by 4-0 Monocryl subcuticular suture. Steri-Strips and sterile dressing were applied. The patient tolerated the procedure well, was transferred to PACU in stable condition. [id number]/[facility] #: [id number] HARRIET
== END 2017-07-22 16:03 | disposition home or self-care (01) ==
LOC: OR 10:16
PROVIDERS: ATTEND Surgery
DX: C32.9 Malignant neoplasm of larynx, unspecified (principal); Z93.1 Gastrostomy status; Z87.891 Personal history of nicotine dependence; Z90.02 Acquired absence of larynx
CPT/HCPCS: 71010; 76000; C1788; J0690; J1642; J2001; J2250; J3010

== ENCOUNTER 2017-10-28 18:47 | Observation (INO) | payer OTHER ==
[2017-10-28] MEDS ORDERED: Piperacillin/Tazobac ADVAN(*) 3.375 GM in NS 0.9% 100 ML* 100 ML IVPB ONE (19:09)
[2017-10-28] MEDS ORDERED: Albuterol/Ipratropium NEB.SOL* Albuterol 2.5 MG/Ipratropium 0.5 MG 3 ML INH ONE (19:10)
[2017-10-28] MEDS ORDERED: NS 0.9% 1000 ML* 1,000 ML IV ONE (19:10)
[2017-10-28] MEDS ORDERED: Acetylcysteine INHALATION SOL* 200 MG/ML NEB.SOLN 10 ML INH ONE (19:10)
[2017-10-28] MEDS ORDERED: Albuterol 2.5 MG/3 ML NEB.SOL* (0.083%) INH ONE (19:11)
[2017-10-28] MEDS ORDERED: Albuterol/Ipratropium NEB.SOL* Albuterol 2.5 MG/Ipratropium 0.5 MG 3 ML ONE (19:13)
[2017-10-28] MEDS ORDERED: Albuterol 2.5 MG/3 ML NEB.SOL* (0.083%) ONE (19:13)
[2017-10-28 19:28] LABS: ABS Basophils 0 10^3/ul (0-0.2); ABS Eosinophils 0 10^3/ul (0-0.6); ABS Lymphocytes 0.4 10^3/ul (1.0-4.8); ABS Monocytes 0.7 10^3/ul (0-0.8); ABS Neutrophils 5.1 10^3/ul (1.5-7.7); ABS Nucleated RBC 0 10^3/ul; Eosinophil % 0.2 % (0-6); Hematocrit 34 % (42-52); Hemoglobin 11.8 g/dl (14.0-18.0); Mean Corpuscular HGB Conc 35 g/dl (31-36); Mean Corpuscular Hemoglobin 32 pg (27-31); Mean Corpuscular Volume 91 fL (80-94); Mean Platelet Volume 8 um3 (7.4-10.4); Nucleated Red Blood Cells % 0; Platelet Count 241 10^3/ul (150-450); Red Cell Distribution Width 19 % (10.5-15); White Blood Count 6.3 10^3/ul (3.5-10.8)
[2017-10-28 19:37] LABS: INR 0.9 (0.77-1.02)
[2017-10-28] MEDS ORDERED: Aspirin Low Dose CHEW TAB* 81 MG PO ONE (20:02)
--- NOTE | 2017-10-28 20:31 | RAD ---
Indication: Shortness of breath. Single frontal view of the chest performed at 1930 hours was reviewed. Comparison is made with previous exam dated July 22, 2017. No mediastinal shift is noted. Heart is of normal size and configuration. Central line is in place. There is suggestion of some airspace density in the left base which pneumonia cannot be excluded. IMPRESSION: QUESTION OF LEFT BASILAR INFILTRATE SUGGESTIVE OF PNEUMONIA.
--- NOTE | 2017-10-28 21:05 | ED ---
Bennie Huynh Stephanie, scribed for Wendy Ernst MD on 10/28/17 at 1911 . Shortness of Breath - HPI Summary HPI Summary: The pt is a 57 y/o M presenting to the ED with c/o SOB that began at 08:00 today. Per , the pt has been having trouble clearing stuff out of his trach. The pt has hx of cancer above the site. - History of Current Complaint Chief Complaint: EDShortnessOfBreath Time Seen by Provider: 10/28/17 19:39 Hx Obtained From: Family/Tank Car Loader - Onset/Duration: Gradual Onset, Lasting Hours, Still Present Current Severity: Moderate Aggrevating Factors: Nothing Alleviating Factors: Nothing - Allergy/Home Medications Allergies/Adverse Reactions: Allergies Allergy/AdvReac Type Severity Reaction Status Date / Time No Known Allergies Allergy Verified 07/22/17 10:36 Home Medications: Home Medications Lidocaine 2% VISCOUS* [Xylocaine 2% Viscous*] 15 ml SWISH SPIT QID 10/28/17 [ History Confirmed 10/28/17] Omeprazole CAP* [Prilosec CAP* 20 MG] 20 mg PO DAILY 10/28/17 [History Confirmed 10/28/17] PMH/Surg Hx/FS Hx/Imm Hx Endocrine/Hematology History: Denies: Hx Diabetes Cardiovascular History: Denies: Hx Hypertension Respiratory History: Reports: Hx Asthma, Hx Chronic Obstructive Pulmonary Disease (COPD), Other Respiratory Problems/Disorders - RECENTLY IN HOSP FOR SOB. GI History: Reports: Other GI Disorders - hernia History: Denies: Hx Dialysis, Hx Renal Disease Sensory History: Reports: Hx Contacts or Glasses, Hx Eye Prosthesis Denies: Hx Deafness, Hx Hearing Aid Opthamlomology History: Reports: Hx Contacts or Glasses, Hx Eye Prosthesis Psychiatric History: Reports: Hx Anxiety, Hx Depression - DUE TO ILLNESS - Cancer History Cancer Type, Location and Year: throat Hx Chemotherapy: - WILL BE HAVING - Surgical History Surgery Procedure, Year, and Place: Eye surgery, tonsilectomy. 2017 TRACH AND LARYNGECTOMY. DOUBLE HERNIA [facility] Hx Anesthesia Reactions: No - Immunization History Date of Tetanus Vaccine: 1 year ago Infectious Disease History: No Infectious Disease History: Denies: Traveled Outside the [place] in Last 30 Days - Family History Known Family History: Positive: Cardiac Disease - Social History Occupation: Unemployed Lives: With Family Alcohol Use: None Substance Use Type: Reports: None, Prescribed Smoking Status (MU): Former Smoker Type: Cigarettes Amount Used/How Often: 1 PPD Have You Smoked in the Last Year: Yes Review of Systems Negative: Fever Positive: Shortness Of Breath All Other Systems Reviewed And Are Negative: Yes Physical Exam - Summary Physical Exam Summary: VITAL SIGNS: Reviewed. GENERAL: Patient is a well-developed and nourished MALE who is lying comfortable in the stretcher. Patient is not in any acute respiratory distress. HEAD AND FACE: No signs of trauma. No ecchymosis, hematomas or skull depressions. No sinus tenderness. EYES: PERRLA, EOMI x 2, No injected conjunctiva, no nystagmus. EARS: Hearing grossly intact. Ear canals and tympanic membranes are within normal limits. MOUTH: Oropharynx within normal limits. NECK: Supple, trachea is midline, trach with surrounding scabs, no adenopathy, no JVD, no carotid bruit, no c-spine tenderness, neck with full ROM. CHEST: Symmetric, no tenderness at palpation LUNGS: Decreased breath sounds bilaterally. No wheezing or crackles. CVS: Regular rate and rhythm, S1 and S2 present, no murmurs or gallops appreciated. ABDOMEN: Soft, non-tender. No signs of distention. No rebound no guarding, and no masses palpated. Bowel sounds are normal. PEG tube in L side of abd. EXTREMITIES: FROM in all major joints, no edema, no cyanosis or clubbing. NEURO: Alert and oriented x 3. No acute neurological deficits. Speech is normal and follows commands. SKIN: Dry and warm Triage Information Reviewed: Yes Vital Signs On Initial Exam: Initial Vitals Temp Pulse Resp BP Pulse Ox 99.7 F 93 24 115/70 100 10/28/17 18:55 10/28/17 18:55 10/28/17 18:55 10/28/17 18:55 10/28/17 18:55 Vital Signs Reviewed: Yes Diagnostics - Vital Signs Vital Signs Temp Pulse Resp BP Pulse Ox 10/28/17 18:55 99.7 F 93 24 115/70 100 - Laboratory Result Diagrams: 10/28/17 19:00 10/28/17 19:00 Lab Statement: Any lab studies that have been ordered have been reviewed, and results considered in the medical decision making process. - Radiology CXR Xray Interpretation: No Acute Changes Radiology Interpretation Completed By: Radiologist - QUESTION OF LEFT BASILAR INFILTRATE SUGGESTIVE OF PNEUMONIA. ED physician has reviewed this imaging report and agrees. - EKG 19:53 Cardiac Rate: NL EKG Rhythm: Sinus Rhythm - 91 BPM EKG Interpretation: Normal axis. Normal interval. No ischemic changes Course/Dx - Course Course Of Treatment: The pt will be admitted to [facility] [place] by Dr. Vaz. - Diagnoses Provider Diagnoses: Elevated troponin, possible pneumonia - Physician Notifications Discussed Care of Patient With: Jennifer Vaz - Admit the pt. Time Discussed With Above Provider: 20:45 Discharge - Discharge Plan Condition: Stable Disposition: ADMITTED TO [facility] Referrals: No Primary Care Phys,NOPCP [Primary Care Provider] - The documentation as recorded by the Bennie bardley Stephanie accurately reflects the service I personally performed and the decisions made by Klever poole Abdul, MD.
[2017-10-28] MEDS ORDERED: Morphine INJ* 4 MG/ML 1 ML SYRINGE (NEW SYRINGE VERSION) IV PRN (21:32)
[2017-10-28] MEDS ORDERED: Albuterol 2.5 MG/3 ML NEB.SOL* (0.083%) INH PRN (21:32)
[2017-10-28] MEDS ORDERED: HYDROcodone/ACET. 7.5/325 LIQ* 15 ML UDC PO PRN (21:38)
[2017-10-28 21:53] LABS: Urine Appearance Clear; Urine Blood Negative (Negative); Urine Color Yellow; Urine Ketones Negative (Negative); Urine Protein Negative (Negative); Urine Specific Gravity 1.015 (1.010-1.030); Urine Urobilinogen Negative (Negative)
[2017-10-28] MEDS ORDERED: guaiFENesin LIQ* 100 MG/5 ML UDC PO SCH (22:00)
[2017-10-28] MEDS ORDERED: guaiFENesin LIQ* 100 MG/5 ML UDC G TUBE SCH (22:00)
[2017-10-28] MEDS: NS 0.9% 1000 ML* 1,000 ML IV SCH (22:58)
[2017-10-28] MEDS: guaiFENesin LIQ* 100 MG/5 ML UDC G TUBE SCH (23:41)
--- NOTE | 2017-10-29 00:07 | HP ---
DICTATION ENDS ABRUPTLY HISTORY AND PHYSICAL: DATE OF ADMISSION: 10/28/17 PRIMARY CARE PROVIDER: None. ENT: Dr. Navarro. CHIEF COMPLAINT: Shortness of breath. HISTORY OF PRESENT ILLNESS: Mr. Nur is a 57-year-old male who is diagnosed with T3N2 laryngeal cancer and now status post laryngectomy with tracheostomy and PEG tube placement as he received chemotherapy and radiation therapy recently, who presents to the emergency room with complaints of shortness of breath. Upon arrival to the ER, the patient reportedly was struggling greatly to breathe. He reportedly had very minimal air movement on exam. His tracheostomy site revealed crusted mucus. A significant amount of suctioning was required to clear what is felt to be mucus plugging. The patient states he is now feeling better but not back to his baseline. He is sad and slightly depressed about his current situation. The patient wrote on a piece of paper that he thought he was going to last night because his breathing was so bad. The patient denies any pain currently. He does state that he has been having some chest pain, but he states that it has been with coughing. PAST MEDICAL HISTORY: 1. Tobacco abuse. 2. Laryngeal cancer, status post initially tracheostomy, followed by laryngectomy, XRT, chemo. PAST SURGICAL HISTORY: 1. Umbilical hernia repair. 2. Abdominal wall hernia repair. 3. Right eye enucleation. 4. Tracheostomy. 5. Laryngectomy. 6. PEG tube placement. MEDICATIONS: 1. Omeprazole 20 mg p.o. daily. 2. Viscous lidocaine 15 mL swish and spit 4 times daily. 3. Lortab Elixir 7.5/325, 15 mL p.o. q.6 hours p.r.n. pain. ALLERGIES: No known drug allergies. FAMILY HISTORY: Mom at the age of 78 of CHF. Dad at the age of 82, he had MT and he also had cancer of unknown type. REVIEW OF SYSTEMS: Difficult to obtain from the patient as he does not readily answer questions, even with a nod or a shake. He does state that he still feels somewhat more short of breath than his baseline. He again admits to chest pain , again with coughing. His indicates that he has been tolerating his tube feeds without any difficulty. PHYSICAL EXAMINATION GENERAL: The patient is a well-developed, middle-aged male, sitting up in the stretcher, appearing to be in no acute distress. VITAL SIGNS: Blood pressure 101/60, pulse 81, respirations 13, temp 99.7, O2 sat 100% on 35% trach collar. HEENT: The patient is status post right eye enucleation. Left eye has full extraocular movements. Oropharynx is clear. Oral mucosa is moist. The patient is edentulous. The patient has a tracheostomy that has crusted mucus at its orifice. There is significant erythema under the mandible and over the anterior neck. This is tender to touch. PULMONARY: Breath sounds are clear. I do not appreciate any crackles or rhonchi. CARDIAC: Normal S1, S2. Regular rate and rhythm. I do not appreciate any murmurs. There is no lower extremity edema. ABDOMEN: Bowel sounds present. Abdomen is soft, nontender, nondistended. There is a PEG tube noted to the left upper quadrant. MUSCULOSKELETAL: There is no cyanosis or clubbing of the digits. There is full active range of motion of all 4 extremities. NEURO: Cranial nerves II through XII appear to be grossly intact. Sensation is intact to light touch throughout. Strength is normal. PSYCH: The patient is alert, he is oriented to place and situation. SKIN: Warm and dry. There is erythema noted on the patient's neck. DIAGNOSTIC STUDIES/LAB DATA: WBC 6.3, hemoglobin 11.8, hematocrit 34, platelets 241. INR is 0.9. Sodium 138, potassium 4.3, chloride 101, CO2 26, BUN 32, creatinine 1.47, glucose 94, lactic acid 2.4, calcium 10.1. Bilirubin 0.5, AST 17, ALT 13, alk phos 55. Troponin 0.24. CRP 31.11. BNP 63. Albumin 4.4. Influenza A and B negative. EKG reveals sinus rhythm with no acute ST-T wave abnormalities. Chest x-ray: There is questionable left basilar infiltrate suggestive of pneumonia. ASSESSMENT AND PLAN: Mr. Nur is an unfortunate 57-year-old male with T3N2 laryngeal cancer, status post tracheostomy, laryngectomy, radiation therapy, and chemotherapy, who presents to the emergency room with complaints of shortness of breath and was found to have likely mucus plugging leading to this as well as an elevated troponin. 1. Shortness of breath. This has dramatically improved. Nursing in the emergency room indicates that the patient appears much more comfortable than when he presented to the ER. He will continue with inhaled saline to try to loosen the mucus as well as standing order for guaifenesin 600 mL per tube every 12 hours to help with thinning his secretions. The patient will also have albuterol nebulizer treatments available. Given the possible infiltrate on chest x-ray, I will continue antibiotic therapy. His white blood cell count is not elevated and he is afebrile; however, given the significant mucus and his respiratory distress earlier today, we will treat with Augmentin 600 mg per tube twice daily. 2. Elevated troponin. I suspect the elevated troponin is secondary to demand ischemia. It sounds as if the patient was in significant respiratory distress upon arrival to the emergency room and by report, the patient was very afraid of how bad his breathing was last evening. The patient will have the troponin trended. His EKG is without any concerning features. At this point, I will hold off on stress testing, but this could be considered especially if the patient starts complaining of chest pain not associated with coughing. DICTATION ENDS ABRUPTLY [id number] #: [id number] MTDD
[2017-10-29] MEDS: Sodium Chloride(INHALANT)0.9%* 5 ML NEB.SOLN INH SCH (01:28)
[2017-10-29] MEDS ORDERED: Lansoprazole susp Kit 3 MG/ML (30 MG = 10 ML) G TUBE SCH (09:00)
[2017-10-29] MEDS ORDERED: Amoxicillin/Clavulanate SUSP* 600 MG/5 ML ORAL.SUSP 75 ML (600/42.9) PO SCH (09:00)
[2017-10-29] MEDS: Lidocaine 2% VISCOUS* 15 ML UDC SWISH SPIT SCH ×2 (09:07→13:44)
[2017-10-29] MEDS: guaiFENesin LIQ* 100 MG/5 ML UDC G TUBE SCH (11:16)
[2017-10-29] MEDS: NS 0.9% 1000 ML* 1,000 ML IV SCH (11:16)
--- NOTE | 2017-10-29 14:55 | ECHO ---
Patient: FADUMO NAJERA [facility] Rec#: [id number] : 1960 Date: 10/29/2017 Age: 57y Height: 167.64 cm / 66.0 in Weight: 72.57 kg / 159.9 lbs Sex: M BSA: 1.82 Room#: 443 Admit Date#: 10/28/2017 Type: Inpatient Referring: Fredrick Ferrara MD Reading: Vannesa Del Angel MD [facility] Therapist: Leonila Nam RD,RDMS Transthoracic Echocardiogram Indication: Elevated TROP BP: 106/66 HR: 84 Rhythm: NSR Findings History: Laryngeal cancer, chemotherapy, radiation, smoker Technical Comments: The study quality is good. Left Ventricle: The left ventricular chamber size is normal. There is no left ventricular hypertrophy. The estimated ejection fraction is 55-60%. Abnormal left ventricular diastolic function is observed. The patient was unable to perform a Valsalva maneuver. Left Atrium: The left atrial chamber size is normal. Right Ventricle: The right ventricular chamber size and systolic function are within normal limits. Right Atrium: The right atrium is slightly dilated. A prominent chiari network is noted in the right atrium. Aortic Valve: There is no evidence of aortic valve thickening. There is a trace of aortic regurgitation. There is no evidence of aortic stenosis. Mitral Valve: The mitral valve leaflets appear normal. There is no evidence of mitral regurgitation. There is no evidence of mitral stenosis. Tricuspid Valve: The tricuspid valve leaflets are normal. There is trace tricuspid regurgitation. Unable to estimate the right ventricular systolic pressure. Pulmonic Valve: The pulmonic valve structure is not well visualized. There is a trace pulmonic regurgitation. Pericardium: There is no significant pericardial effusion. Aorta: The aortic root appears normal. The aortic arch is not well visualized. Pulmonary Artery: The main pulmonary artery is not well visualized. Venous: The inferior vena cava appears normal. There is an approximate 50% respiratory change in the inferior vena cava dimension. Summary: There was not any prior study for comparison. Conclusions The left ventricular chamber size is normal. The estimated ejection fraction is 55-60%. Abnormal left ventricular diastolic function is observed. There is a trace of aortic regurgitation. There is trace tricuspid regurgitation. Unable to estimate the right ventricular systolic pressure. There is a trace pulmonic regurgitation. Measurements Name Value Normal Range RVIDd (AP) 2D 2.4 cm (0.9 - 2.6) RAd ISD 4CH 5.4 cm (3.4 - 4.9) RA (A4C)W 3.9 cm (2.9 - 4.6) IVSd (2D) 1.1 cm (0.6 - 1) LVPWd (2D) 1 cm (0.6 - 1) LVIDd (2D) 5.1 cm (3.6 - 5.4) LVIDs (2D) 3.2 cm - LV FS (2D) 36 % (25 - 45) Aortic Annulus 2.4 cm (1.4 - 2.6) Ao root diameter (2D) 3.4 cm (2.1 - 3.5) Ascending Ao 3.1 cm (2.1 - 3.4) LA dimension (AP) 2D 3.6 cm (2.3 - 3.8) LAd ISD 4CH 5.2 cm (2.9 - 5.3) LA ISD 4CH W 3.5 cm (2.5 - 4.5) Name Value Normal Range LA ESV SP 4CH (A/L) 46.34 ml - LA ESV SP 2CH (A/L) 50.89 ml - LA ESV BP (A/L) 48.71 ml - LA ESV BP (A/L) index 27 ml/m2 - LA ESV SP 4CH (MOD) 39.95 ml - LA ESV SP 2CH (MOD) 48.75 ml - Name Value Normal Range MV E-wave Vmax 0.8 m/sec - MV deceleration time 240 msec - MV A-wave Vmax 0.7 m/sec - MV E:A ratio 1.1 ratio - P. vein S-wave Vmax 0.5 m/sec - P. vein D-wave Vmax 0.4 m/sec - P. vein S:D Vmax ratio 1.2 ratio - P. vein A-wave duration 107 msec - LV septal e' Vmax 0.07 m/sec - LV lateral e' Vmax 0.12 m/sec - LV E:e' septal ratio 12 ratio - LV E:e' lateral ratio 7 ratio - Name Value Normal Range AV Vmax 1.6 m/sec - AV VTI 28.1 cm - AV peak gradient 10 mmHg - AV mean gradient 5.2 mmHg - LVOT Vmax 1.4 m/sec - LVOT VTI 24 cm - LVOT peak gradient 8 mmHg - LVOT mean gradient 3.2 mmHg - Name Value Normal Range RAP 8 mmHg - IVC diameter 1.5 cm - Name Value Normal Range PV Vmax 0.8 m/sec - PV peak gradient 2.6 mmHg -
[2017-10-29 16:38] VITALS: BP 110/62
--- NOTE | 2017-10-30 10:48 | DS ---
CC: Dr. Wyman; Dr. Batista DISCHARGE SUMMARY: DATE OF ADMISSION: 10/28/17 DATE OF DISCHARGE: 10/29/17 HISTORY OF PRESENT ILLNESS: This is a 57-year-old man presenting with shortness of breath. He was diagnosed with laryngeal cancer in 2016. He had laryngectomy in June 2017. He had a right modified radical neck dissection as well. He underwent chemotherapy and radiation therapy. He has a G-tube. The patient presented to the emergency room short of breath. He was visibly struggling to breathe with minimal air movement. He had crusted mucus over his tracheostomy site. Suctioning cleared what seemed to be mucus plugging. The patient felt much better after that. The patient communicated by writing on paper that he thought he was going to last night because his breathing was so bad. The rest of the history is detailed in the admission note. There is a questionable infiltrate on chest x-ray. He received some piperacillin and tazobactam in the hospital and will continue with a week of amoxicillin clavulanate suspension b.i.d. at home. I think his main problem was mechanical obstruction at the stoma site, not infection per se. Nutrition saw him because of his weight loss. His Jevity was increased from 1.2 to 1.5 concentration. This will allow him to get more calories without increasing the volume. It was changed from omeprazole per G-tube to lansoprazole suspension kit, which will make administration much easier for the patient. He was started on guaifenesin liquid and will be continued on this at home as well. We are arranging for him to have a trach collar with humidified air at home, which he does not have at present. They noted his O2 saturation on room air was 99%. FINAL DIAGNOSES: 1. Stoma obstruction from dried secretions. 2. Question of pneumonia. 3. History of laryngeal cancer. 4. PEG tube in place. DISCHARGE MEDICATIONS: 1. Amoxicillin clavulanate suspension 600 mg b.i.d. for 1 week. 2. Guaifenesin liquid 30 mL by G-tube 4 times a day. 3. Lansoprazole suspension is not covered by his insurance and he was instructed to resume omeprazole by G-tube daily.. 4. Hydrocodone and acetaminophen 7.5/325 liquid per 15 mL every 6 hours p.r.n. 5. Viscous lidocaine 15 mL swish and swallow 4 times daily. [id number]/[facility] #: [id number] MTDD
== END 2017-10-29 17:55 | disposition home or self-care (01) ==
LOC: ED 18:47 → MEDTELE 21:32
PROVIDERS: ADMIT Hospitalist; ATTEND Internal Medicine
DX: J95.03 Malfunction of tracheostomy stoma (principal); Y84.8 Other medical procedures as the cause of abnormal reaction of the patient, or of later complication, without mention of misadventure at the time of the procedure; R06.02 Shortness of breath; R74.8 Abnormal levels of other serum enzymes; Z85.21 Personal history of malignant neoplasm of larynx; Z79.899 Other long term (current) drug therapy; Z87.891 Personal history of nicotine dependence
CPT/HCPCS: 36415; 71045; 80053; 81003; 83605; 83880; 84145; 84484; 85025; 85610; 85730; 86140; 87040; 87502; 93005; 93306; 94640; 94760; 96365; 96374; 99285; A9270-GY; G0378; J2543

== ENCOUNTER 2017-12-07 00:48 | Emergency (ER) | payer OTHER ==
[2017-12-07 02:01] VITALS: BP 125/66
--- NOTE | 2017-12-07 02:08 | ED ---
Santos Huynh Gabriel, scribed for Wendy Ernst MD on 12/07/17 at 0114 . GI/ HPI - HPI Summary HPI Summary: This patient is a 57 year old M presenting to [facility] accompanied by his after his feeding tube has come out of his stomach. Pts states the tube came out about an hour ago. The tube was placed last June. LEVEL 5 CAVEAT HPI limited due to the patient being unable to speak - History of Current Complaint Chief Complaint: EDGeneral Time Seen by Provider: 12/07/17 01:03 Stated Complaint: FEEDING TUBE FELL OUT Hx Obtained From: Patient Onset/Duration: Still Present Timing: Constant Severity: Mild Current Severity: Mild Pain Intensity: 0 - Additional Pertinent History Primary Care Physician: EUGENIE - Allergy/Home Medications Allergies/Adverse Reactions: Allergies Allergy/AdvReac Type Severity Reaction Status Date / Time No Known Allergies Allergy Verified 12/07/17 01:03 PMH/Surg Hx/FS Hx/Imm Hx Endocrine/Hematology History: Denies: Hx Diabetes Cardiovascular History: Denies: Hx Hypertension Respiratory History: Reports: Hx Asthma, Hx Chronic Obstructive Pulmonary Disease (COPD), Other Respiratory Problems/Disorders - RECENTLY IN HOSP FOR SOB. GI History: Reports: Other GI Disorders - hernia History: Denies: Hx Dialysis, Hx Renal Disease Sensory History: Reports: Hx Contacts or Glasses, Hx Eye Prosthesis Denies: Hx Deafness, Hx Hearing Aid Opthamlomology History: Reports: Hx Contacts or Glasses, Hx Eye Prosthesis Psychiatric History: Reports: Hx Anxiety, Hx Depression - DUE TO ILLNESS - Cancer History Cancer Type, Location and Year: throat Hx Chemotherapy: - WILL BE HAVING - Surgical History Surgery Procedure, Year, and Place: Eye surgery, tonsilectomy. 2017 TRACH AND LARYNGECTOMY. DOUBLE HERNIA [facility] Hx Anesthesia Reactions: No - Immunization History Date of Tetanus Vaccine: 1 year ago Infectious Disease History: No Infectious Disease History: Denies: Traveled Outside the [place] in Last 30 Days - Family History Known Family History: Positive: Cardiac Disease - Social History Lives: With Family Alcohol Use: None Substance Use Type: Reports: None Smoking Status (MU): Former Smoker Type: Cigarettes Amount Used/How Often: 1 PPD Have You Smoked in the Last Year: No Review of Systems Positive: Other - GI tube has fallen out All Other Systems Reviewed And Are Negative: No Physical Exam - Summary Physical Exam Summary: VITAL SIGNS: Reviewed. GENERAL: Patient is a well-developed and nourished male who is lying comfortable in the stretcher. Patient is not in any acute respiratory distress. HEAD AND FACE: No signs of trauma. No ecchymosis, hematomas or skull depressions. No sinus tenderness. Gross amount of mouth secretion EYES: PERRLA, EOMI x 2, No injected conjunctiva, no nystagmus. EARS: Ear canals and tympanic membranes are within normal limits. MOUTH: Oropharynx within normal limits. NECK: Supple, trachea is midline, no adenopathy, no JVD, no carotid bruit, no c- spine tenderness, neck with full ROM. CHEST: Symmetric, no tenderness at palpation LUNGS: Clear to auscultation bilaterally. No wheezing or crackles. CVS: Regular rate and rhythm, S1 and S2 present, no murmurs or gallops appreciated. ABDOMEN: Soft, non-tender. No signs of distention. No rebound no guarding, and no masses palpated. G tube orifice is open EXTREMITIES: FROM in all major joints, no edema, no cyanosis or clubbing. NEURO: Alert. No acute neurological deficits. follows commands. SKIN: Dry and warm Triage Information Reviewed: Yes Vital Signs On Initial Exam: Initial Vitals Temp Pulse Resp BP Pulse Ox 96.9 F 105 20 137/75 98 12/07/17 00:49 12/07/17 00:49 12/07/17 00:49 12/07/17 00:49 12/07/17 00:49 Vital Signs Reviewed: Yes Completion Of Physical Exam Limited Due To: Level 5 Procedures - Additional Procedures Additional Procedures: gastric tube replacement - 18 Diagnostics - Vital Signs Vital Signs Temp Pulse Resp BP Pulse Ox 12/07/17 00:49 96.9 F 105 20 137/75 98 - Laboratory Lab Statement: Any lab studies that have been ordered have been reviewed, and results considered in the medical decision making process. GIGU Course/Dx - Course Assessment/Plan: This patient is a 57 year old M presenting to [facility] accompanied by his after his feeding tube has come out of his stomach. Pt s states the tube came out about an hour ago. The tube was placed last June. LEVEL 5 CAVEAT exam limited due to the patient being unable to speak. The patients G tube was replaced in the ED. Patient will be discharged and follow up from physician referral center. The patient is agreeable with this plan. - Diagnoses Provider Diagnoses: Dislodged gastrostomy tube Discharge - Sign-Out/Discharge Documenting (check all that apply): Discharge - Discharge Plan Condition: Stable Disposition: HOME Patient Education Materials: Tube Feeding (DC) Referrals: [facility] PHYSICIAN REFERRAL [Outside] - 2 Days Additional Instructions: RETURN TO THE ER FOR ANY NEW OR WORSENING SYMPTOMS The documentation as recorded by the Santos bradley Gabriel accurately reflects the service I personally performed and the decisions made by Klever poole Abdul, MD.
== END 2017-12-07 02:00 | disposition home or self-care (01) ==
LOC: ED 00:48
DX: K94.23 Gastrostomy malfunction (principal); J44.9 Chronic obstructive pulmonary disease, unspecified; F41.9 Anxiety disorder, unspecified; F32.9 Major depressive disorder, single episode, unspecified; Z87.891 Personal history of nicotine dependence
CPT/HCPCS: 99281

== ENCOUNTER 2018-05-18 01:54 | Emergency (ER) | payer OTHER ==
--- NOTE | 2018-05-18 02:59 | ED ---
Complex/Multi-Sys Presentation - HPI Summary HPI Summary: This patient is a 57 year old M presenting to [facility] accompanied by his with a chief complaint of that his G tube came out today. The patient rates the pain 0/10 in severity. Pt has no other complaints he is just here to have his tube replaced. - History Of Current Complaint Chief Complaint: EDGeneral Hx Obtained From: Family/Payroll Auditor Onset/Duration: Still Present Timing: Constant Severity Currently: Mild Severity Initially: Mild Associated Signs And Symptoms: Negative: Dizziness, Weakness, Headache, Cough, Palpitations, Nausea, Hematemesis, Melena, Decreased Oral Intake, Diaphoresis, Immunocompromised, Anticoagulation Therapy, Recent Medication Changes, Prior VRE - Allergies/Home Medications Allergies/Adverse Reactions: Allergies Allergy/AdvReac Type Severity Reaction Status Date / Time No Known Allergies Allergy Verified 05/18/18 01:58 PMH/Surg Hx/FS Hx/Imm Hx Endocrine/Hematology History: Denies: Hx Diabetes Cardiovascular History: Denies: Hx Hypertension Respiratory History: Reports: Hx Asthma, Hx Chronic Obstructive Pulmonary Disease (COPD), Other Respiratory Problems/Disorders - RECENTLY IN HOSP FOR SOB. GI History: Reports: Other GI Disorders History: Denies: Hx Dialysis, Hx Renal Disease Sensory History: Reports: Hx Contacts or Glasses, Hx Eye Prosthesis Denies: Hx Deafness, Hx Hearing Aid Opthamlomology History: Reports: Hx Contacts or Glasses, Hx Eye Prosthesis Psychiatric History: Reports: Hx Anxiety, Hx Depression - DUE TO ILLNESS - Cancer History Cancer Type, Location and Year: larynx CA Hx Chemotherapy: - WILL BE HAVING - Surgical History Surgery Procedure, Year, and Place: Eye surgery, tonsilectomy. 2017 TRACH AND LARYNGECTOMY. DOUBLE HERNIA [facility] Hx Anesthesia Reactions: No - Immunization History Date of Tetanus Vaccine: utd Date of Influenza Vaccine: fall 2016 Infectious Disease History: No Infectious Disease History: Denies: Traveled Outside the [place] in Last 30 Days - Family History Known Family History: Positive: Cardiac Disease - Social History Lives: With Family Alcohol Use: None Substance Use Type: Reports: None Smoking Status (MU): Former Smoker Type: Cigarettes Amount Used/How Often: 2 PPD Have You Smoked in the Last Year: No Review of Systems Negative: Fever Negative: Chest Pain Negative: Shortness Of Breath Gastrointestinal: Other - g tube is out All Other Systems Reviewed And Are Negative: Yes Physical Exam - Summary Physical Exam Summary: VITAL SIGNS: Reviewed. GENERAL: Patient is a well-developed and nourished male who is lying comfortable in the stretcher. Patient is not in any acute respiratory distress. HEAD AND FACE: No signs of trauma. No ecchymosis, hematomas or skull depressions. No sinus tenderness. EYES: there is no right eye. EARS: Hearing grossly intact. Ear canals and tympanic membranes are within normal limits. MOUTH: trach in place NECK: Supple, trachea is midline, no adenopathy, no JVD, no carotid bruit, no c- spine tenderness, neck with full ROM. CHEST: Symmetric, no tenderness at palpation LUNGS: Clear to auscultation bilaterally. No wheezing or crackles. CVS: Regular rate and rhythm, S1 and S2 present, no murmurs or gallops appreciated. ABDOMEN: Soft, non-tender. No signs of distention. No rebound no guarding, and no masses palpated. Bowel sounds are normal. EXTREMITIES: FROM in all major joints, no edema, no cyanosis or clubbing. NEURO: Alert and oriented x 3. No acute neurological deficits. Speech is normal and follows commands. SKIN: Dry and warm Triage Information Reviewed: Yes Vital Signs On Initial Exam: Initial Vitals Temp Pulse Resp BP Pulse Ox 98.2 F 74 22 139/77 98 05/18/18 01:56 05/18/18 01:56 05/18/18 01:56 05/18/18 01:56 05/18/18 01:56 Vital Signs Reviewed: Yes Procedures - Procedure Summary Procedure Summary: I tried to place g tube 18 Maltese but it was unable to pass through the stoma. It has been out since 1329. I used a 16 wolof g tube and it was able to pass without complications. . Diagnostics - Vital Signs Vital Signs Temp Pulse Resp BP Pulse Ox 05/18/18 01:56 98.2 F 74 22 139/77 98 - Laboratory Lab Statement: Any lab studies that have been ordered have been reviewed, and results considered in the medical decision making process. Complex Multi-Symp Course/Dx Assessment/Plan: This patient is a 57 year old M presenting to [facility] accompanied by his with a chief complaint of that his g tube came out today. The patient rates the pain 0/10 in severity. Pt has no other complaints he is just here to have his tube replaced. I tried to place g tube 18 Maltese but it was unable to pass through the stoma. It has been out since 1330. I used a 16 wolof g tube and it was able to pass without complications. Patient will be discharged and follow up from Pcp. The patient is agreeable with this plan. - Diagnoses Provider Diagnoses: Encounter for gastrojejunal tube placement Discharge - Sign-Out/Discharge Documenting (check all that apply): Patient Departure - Discharge Plan Condition: Stable Disposition: HOME Referrals: Frank Means MD [Primary Care Provider] - Additional Instructions: RETURN TO THE EMERGENCY DEPARTMENT FOR CHANGING OR WORSENING SYMPTOMS. FOLLOW UP WITH PCP IN 1-2 DAYS. - Attestation Statements Document Initiated by Scribe: Yes Documenting Scribe: Edgardo Graham Provider For Whom Scribe is Documenting (Include Credential): Wendy Ernst MD Scribe Attestation: IEdgardo , scribed for Wendy Ernst MD on 05/18/18 at 0415.
[2018-05-18 04:20] VITALS: BP 130/62
== END 2018-05-18 04:19 | disposition home or self-care (01) ==
LOC: ED 01:54
DX: K94.29 Other complications of gastrostomy (principal)
CPT/HCPCS: 99281

== ENCOUNTER → 2018-11-05 10:19 | Day surgery (SDC) | payer OTHER ==
[~2018-11-05 10:19] MED LIST changes: -Buffered Lidocaine 0.9% SYRIN* 5 ML/SYR SYRINGE INTRADERM ONE; +Buffered Lidocaine 1% SYRIN* 1 ML/SYRINGE INTRADERM ONE; +Lactated Ringers 1000 ML Bag* 1,000 ML IV SCH; +Lidocaine 1% INJ* 10 MG/ML 30 ML SDV ONE; +Lidocaine 1%* 5 ML VIAL ONE; +Midazolam* 1 MG/ML 2 ML VIAL (2 MG) ONE; +Naloxone* 0.4 MG/ML 1 ML VIAL IV PRN; +Propofol* 10 MG/ML 20 ML BTL ONE; +fentaNYL* 50 MCG/ML 2 ML VIAL (100 MCG VIAL) ONE
[2018-11-05 14:31] VITALS: BP 104/66
--- NOTE | 2018-11-05 15:23 | PRO ---
BRONCHOSCOPY REPORT: DATE OF PROCEDURE: 11/05/18 PROCEDURE PERFORMED: Bronchoscopy and endobronchial ultrasound-guided fine needle aspiration from right hilar lymph node. ANESTHESIA: Conscious sedation and local anesthesia with lidocaine. ANESTHESIOLOGIST: Dr. Talavera. DESCRIPTION OF PROCEDURE: Informed consent was obtained from the patient prior to the procedure, all the risks and benefits were thoroughly explained. The patient with prior history of laryngeal cancer. Recent PET scan showed PET positive right hilar lymph node. The patient has previous tracheostomy and has stoma. Flexible Olympus bronchoscope was inserted through a tracheostomy stoma. Thick secretion was noted near the stoma site and were suctioned out. There were thin secretions in the airways and was suctioned. No endobronchial lesions were noted. Bronchoscope was then withdrawn and EBUS bronchoscope was inserted through the tracheal stoma. Bronchoscope was advanced into the right hilum and R12 lymph node was sampled with 8 passes. Rapid onsite evaluation revealed malignant cells in last 2 passes. Rest of the specimen was placed in formalin. The patient tolerated the procedure well. The patient was seen in Recovery in optimal condition. [id number]/[facility] #: [id number] MTDD
== END | disposition home or self-care (01) ==
LOC: OR 10:19
PROVIDERS: ATTEND Internal Medicine
DX: C77.1 Secondary and unspecified malignant neoplasm of intrathoracic lymph nodes (principal); Z85.21 Personal history of malignant neoplasm of larynx; Z93.0 Tracheostomy status; Z87.891 Personal history of nicotine dependence
CPT/HCPCS: 88172; 88173; 88177; 88305; 88341; 88342; 88360; J2250; J2704; J3010

== ENCOUNTER 2019-02-03 23:24 | Emergency (ER) | payer OTHER ==
--- OUTSIDE RECORDS SUMMARY | 2019-02-03 23:39 | XMS REPORT | Continuity of Care Document ---
:1960 External Reference #:[id number] Author Name Chelsy Pacheco Care Team Providers Name Role Phone Kailey Parikh M.D. Primary Care Physician Unavailable Payers Date Identification Numbers Payment Provider Subscriber Effective: 2017 Policy Number: [id number] Kishor Nur [employer] Number: [id number] [address] PayID: [id number] [place] [address] Problems Active Problems Provider Date Gastroesophageal reflux disease Frank Means M.D. Onset: 12/14/2017 Adult health examination Frank Means M.D. Onset: 12/14/2017 Family History Date Family Member(s) Observation Comments Father Heart Disease Father due to [place] () Mother due to CHF () Siblings 6 2 brothers , 1 had lung cancer, exposed to agent orange. 3 living brothers, 1 living sister Social History Type Date Description Comments Sex Unknown Marital Status Lives With Lives With Children 2 Lives With Cats- 2 Occupation Disabled Tobacco Use Start: Unknown End: Former Cigarette Smoker Age 12- 57 Unknown 3 Packs Daily Smoking Status Reviewed: 01/31/19 Former Cigarette Smoker Age 12- 57 3 Packs Daily ETOH Use Denies alcohol use ETOH Use Has consumed alcohol in Sober since age 18 the past Tobacco Use Start: Unknown End: Patient is a former quit June 23, Unknown smoker 2017 Recreational Drug Use Denies Drug Use Exercise Type/Frequency Does not exercise Limited by SOB Allergies, Adverse Reactions, Alerts Description No Known Drug Allergies Medications Active Medications SIG Qnty Indications Ordering Date Provider Mirtazapine one tablet crushed, 60tabs F43.21 Kailey Parikh MD 01/31/2019 7.5mg through g-tube, Tablets daily at bedtime. may increase to 2 tablets after 2 weeks 50-60ML Syringe use once daily 30units [place] 07/08/2018 Gary Means 60ml Misc Mucinex 1 tab twice a day by 60tabs [place] 03/16/2018 600mg mouth Gary Means Tablets ER 12HR Shingrix 0.5 milliliters 2units [place] 02/19/2018 50mcg intramuscular now Gary Means Suspension Rec and 2-3 months later repeat Canister For to use as directed 1units Frank 12/30/2017 Nebuliser Gary Means Guaifenesin 10 milliliters by 1200ml Kailey Parikh MD 12/22/2017 mouth four times a 100mg/5ML Solution day as needed Hydrocodone 10ml-15ml by mouth 236ml Kailey Parikh MD Bitartrate/Acetami every 4-6 hours as nophen needed for pain 7.5-325mg/15ML Solution Jevity 1.5 Tito 6 cans daily 180units Z93.0 [place] Gary Means Liquid Boost High Protein daily Unknown Liquid Ondansetron dissolve one tablet 30tabs Fadia 4mg orally every 8 hours Gary Eid Tablets Dispers as needed for nausea. History Medications Omeprazole 1 by mouth every day Unknown - 09/21/2018 20mg Capsules Vital Signs Date Vital Result Comment 01/31/2019 11:26am Height 66 inches 5'6" Weight 136.38 lb Heart Rate 72 /min BP Systolic 120 mmHg BP Diastolic 70 mmHg Body Temperature 97.2 F O2 % BldC Oximetry 95 % BMI (Body Mass Index) 22.0 kg/m2 11/16/2018 10:21am Height 66 inches 5'6" Weight 142.44 lb Heart Rate 80 /min BP Systolic Sitting 98 mmHg Lue regular cuff BP Diastolic Sitting 66 mmHg Lue regular cuff Respiratory Rate 12 /min O2 % BldC Oximetry 96 % BMI (Body Mass Index) 23.0 kg/m2 10/29/2018 11:50am Height 66 inches 5'6" Weight 137.12 lb Heart Rate 76 /min BP Systolic Sitting 102 mmHg BP Diastolic Sitting 70 mmHg Respiratory Rate 16 /min O2 % BldC Oximetry 98 % On Ra BMI (Body Mass Index) 22.1 kg/m2 Neck Circumference in inches 13.5 09/21/2018 10:56am Height 66 inches 5'6" Weight 141.00 lb Heart Rate 79 /min BP Systolic 88 mmHg BP Diastolic 58 mmHg O2 % BldC Oximetry 97 % BMI (Body Mass Index) 22.8 kg/m2 02/16/2018 10:30am Height 66 inches 5'6" Weight 164.50 lb Heart Rate 66 /min BP Systolic 118 mmHg BP Diastolic 66 mmHg Body Temperature 99.2 F O2 % BldC Oximetry 94 % BMI (Body Mass Index) 26.5 kg/m2 12/14/2017 8:40am Height 66 inches 5'6" Weight 166.00 lb Heart Rate 97 /min BP Systolic Sitting 148 mmHg BP Diastolic Sitting 70 mmHg Body Temperature 97.7 F O2 % BldC Oximetry 91 % BMI (Body Mass Index) 26.8 kg/m2 07/17/2017 10:51am Height 65 inches 5'5" Heart Rate 84 /min BP Systolic Sitting 112 mmHg BP Diastolic Sitting 62 mmHg Respiratory Rate 18 /min Body Temperature 98.1 F Results Test Date Facility Test Result H/L Range Note Laboratory test 01/03/2019 [facility] Cytology SEE RESULT [address] Non-Library [place] [address] [phone] CBC Auto Diff 11/24/2018 [facility] White Blood 4.5 10^3/uL N 3.5-10.[address] [place] [address] [phone] Red Blood Count 4.51 10^6/uL N 4.18-5.48 Hemoglobin 13.8 g/dL Low 14.0-18.0 Hematocrit 41 % N 36-46 Mean Corpuscular Volume 91 fL N 80-94 Mean Corpuscular Hemoglobin 31 pg N 27-31 Mean Corpuscular HGB Conc 34 g/dL N 31-36 Red Cell Distribution Width 14 % N 10.5-15 Platelet Count 295 10^3/uL N 150-450 Mean Platelet Volume 7.6 fL N 7.4-10.4 Abs Neutrophils 3.3 10^3/uL N 1.5-7.7 Abs Lymphocytes 0.6 10^3/uL Low 1.0-4.8 Abs Monocytes 0.4 10^3/uL N 0-0.8 Abs Eosinophils 0.1 10^3/uL N 0-0.6 Abs Basophils 0 10^3/uL N 0-0.2 Abs Nucleated RBC 0 10^3/uL Granulocyte % 74.7 % Lymphocyte % 13.9 % Monocyte % 9.5 % Eosinophil % 1.5 % Basophil % 0.4 % Nucleated Red Blood Cells % 0 Comp Metabolic Panel 11/24/2018 [facility] Sodium 137 mmol/L N 135-[address] [place] [address] [phone] Potassium 4.4 mmol/L N 3.5-5.0 Chloride 104 mmol/L N 101-111 Co2 Carbon Dioxide 27 mmol/L N 22-32 Anion Gap 6 mmol/L N 2-11 Glucose 99 mg/dL N 70-100 Blood Urea Nitrogen 29 mg/dL High 6-24 Creatinine 1.26 mg/dL High 0.67-1.17 BUN/Creatinine Ratio 23.0 High 8-20 Calcium 9.5 mg/dL N 8.6-10.3 Total Protein 7.4 g/dL N 6.4-8.9 Albumin 4.2 g/dL N 3.2-5.2 Globulin 3.2 g/dL N 2-4 Albumin/Globulin Ratio 1.3 N 1-3 Total Bilirubin 0.40 mg/dL N 0.2-1.0 Alkaline Phosphatase 58 U/L N 34-104 Alt 17 U/L N 7-52 Ast 19 U/L N 13-39 Egfr Non- 58.4 >60 Egfr 70.6 >60 2 Liver Function 11/24/2018 [facility] Direct 0.10 mg/dL N 0.03- 0.[address] [place] [address] [phone] Indirect Bilirubin 0.3 mg/dL N 0.3-1.0 Laboratory test 11/24/2018 [facility] TSH (Thyroid 1.23 mcIU/mL N 0.34-5.[address] Stim Horm) [place] [address] [phone] Laboratory test 11/05/2018 [facility] Cytology SEE RESULT [address] Non-Library [place] [address] [phone] Laboratory test 10/21/2018 [facility] Point of Care 79 mg/dL N 70-100 [address] [place] [address] [phone] CBC Auto Diff 09/21/2018 [facility] White Blood 8.0 10^3/uL N 3.5-10.[address] [place] [address] [phone] Red Blood Count 4.66 10^6/uL N 4.00-5.40 Hemoglobin 14.3 g/dL N 14.0-18.0 Hematocrit 42 % N 42-52 Mean Corpuscular Volume 90 fL N 80-94 Mean Corpuscular Hemoglobin 31 pg N 27-31 Mean Corpuscular HGB Conc 34 g/dL N 31-36 Red Cell Distribution Width 14 % N 10.5-15 Platelet Count 224 10^3/uL N 150-450 Mean Platelet Volume 9.0 fL N 7.4-10.4 Abs Neutrophils 6.5 10^3/uL N 1.5-7.7 Abs Lymphocytes 0.5 10^3/uL Low 1.0-4.8 Abs Monocytes 0.8 10^3/uL N 0-0.8 Abs Eosinophils 0.1 10^3/uL N 0-0.6 Abs Basophils 0 10^3/uL N 0-0.2 Abs Nucleated RBC 0 10^3/uL Granulocyte % 82.3 % Lymphocyte % 5.9 % Monocyte % 9.7 % Eosinophil % 1.8 % Basophil % 0.3 % Nucleated Red Blood Cells % 0.2 Comp Metabolic 09/21/2018 [facility] Co2 Carbon 27 mmol/L N 22 -[address] [place] [address] [phone] Calcium 9.5 mg/dL N 8.6-10.3 Albumin 4.4 g/dL N 3.2-5.2 Total Bilirubin 0.40 mg/dL N 0.2-1.0 Glucose 87 mg/dL N 70-100 Blood Urea Nitrogen 26 mg/dL High 6-24 Creatinine 1.16 mg/dL N 0.67-1.17 BUN/Creatinine Ratio 22.4 High 8-20 Total Protein 7.2 g/dL N 6.4-8.9 Globulin 2.8 g/dL N 2-4 Albumin/Globulin Ratio 1.6 N 1-3 Alkaline Phosphatase 53 U/L N 34-104 Alt 16 U/L N 7-52 Ast 19 U/L N 13-39 Egfr Non- 64.2 >60 Egfr 77.7 >60 5 Sodium 139 mmol/L N 135-145 Potassium 4.1 mmol/L N 3.5-5.0 Chloride 102 mmol/L N 101-111 Anion Gap 10 mmol/L N 2-11 Laboratory 09/21/2018 [facility] TSH (Thyroid Stim 1.71 N 0.34 -5.60 test finding [address] Horm) mcIU/[place] [address] [phone] Lipid Profile 02/16/2018 [facility] Triglycerides 340 mg/dL 6 (Trig/Chol/HDL [address] ) [place], [place] [id number] [phone] Cholesterol 172 mg/dL 7 HDL Cholesterol 47.1 mg/dL 8 LDL Cholesterol 57 mg/dL 9 Laboratory 02/16/2018 [facility] Hepatitis C Nonreactive Nonreactive test finding [address] [place] [address] [phone] PSA Screening 0.803 ng/mL N 0-4.000 10 Basic Metabolic 01/05/2018 [facility] Sodium 137 mmol/L Low 139-[address] [place] [address] [phone] Potassium 4.1 mmol/L N 3.5-5.0 Chloride 102 mmol/L N 101-111 Co2 Carbon Dioxide 28 mmol/L N 22-32 Anion Gap 7 mmol/L N 2-11 Glucose 101 mg/dL High 70-100 Blood Urea Nitrogen 29 mg/dL High 6-24 Creatinine 1.16 mg/dL N 0.67-1.17 BUN/Creatinine Ratio 25.0 High 8-20 Calcium 9.2 mg/dL N 8.6-10.3 Egfr Non- 64.4 >60 Egfr 82.9 >60 11 Laboratory test 01/01/2018 [facility] Point of Care 97 mg/dL N 70-100 [address] [place] [address] [phone] 1 SEE RESULT BELOW Name: FADUMO NUR Anastasiia : [address]: Deven Navarro MD Acct: [id number] Unit: [id number] AGE: 58 Location: LAB Re01/03/19 SEX: M Status: REG REF SPEC: [id number] MARK: 01/03/19-[address]: Deven Navarro MD REQ: [id number] RECD: 01/03/19-1399 STATUS: RICARDO FERNÁNDEZ DR: Gil Chu MD _ ORDERED: FNA INTERP RPT, FNA BY PALP, LEVEL 4, CYTO ADEQ-1ST P, IMMUNO-FIRST , IMMUNO-ADDL/3 FINAL DIAGNOSIS Neck, right, fine needle aspiration by palpation: -- Benign. -- Findings consistent with radiation change. See comment. Comment: The aspirate smears are amply cellular and demonstrates cohesive cellular fragments with spindled morphology compatible with degenerated skeletal muscle. Additionally dense fibrotic tissue and abundant macrophages are noted. Lymphocytes are likewise seen in the background. No evidence of metastatic squamous cell carcinoma is identified. The following immunochemical stains are performed with appropriate controls on formalin fixed cell block material Pankeratin negative CK5/6 negative Vimentin strong positive CD68 strong positive in scattered cells The morphologic and immunophenotypic features support a benign reactive process morphologically compatible with radiation change in this context. The findings are compatible with the clinical exam. Correlation with clinical and imaging findings is recommended. Continued follow-up is warranted. CONTINUED ON NEXT PAGE DEPARTMENT OF PATHOLOGY, [address] [place] [address] Gil Chu M.D. Director [facility] # [id number] RUN DATE: 01/05/19 [facility] LAB LIVE PAGE 2 Patient: FADUMO NUR [id number] (Continued) SPECIMEN COMMENTS (Continued) The procedure was explained to and understood by the patient. Signed consent was obtained and a time out procedure was performed at the bedside to verify patient identity and biopsy site. Fine needle aspiration biopsy was performed times 2 with a 25 gauge needle on 2.5 cm firm fixed superficial right neck mass. Adequacy was assessed by fast stain technique. The procedure was tolerated well without complications. A cell block was prepared in the evaluation of this specimen. Smears and cell block reveal similar findings. A. NECK RIGHT - RIGHT NECK MASS FINE NEEDLE ASPIRATION CLINICAL HISTORY 2.5 cm fixed mass right neck. IMMEDIATE INTERPRETATION Pass 1 2-adequate GROSS DESCRIPTION Fine needle aspiration by palpation x 2 passes with 2 alcohol fixed slides, 1 Air dried slide(s) and needle rinse in formalin for cell block. Signed by and Reported on: Gil Chu MD 1553 END OF REPORT DEPARTMENT OF PATHOLOGY, [address] [place] [address] Gil Chu M.D. Director [facility] # [id number] 2 Because ethnic data is not always readily available, this report includes an eGFR for both -Americans and non- Americans. The National Kidney Disease Education Program (NKDEP) does not endorse the use of the MDRD equation for patients that are not between the ages of 18 and 70, are , have extremes of body size, muscle mass, or nutritional status, or are non- or non-. According to the National Kidney Foundation, irrespective of diagnosis, the stage of the disease is based on the level of kidney function: Stage Description GFR(mL/min/1.73 m(2)) 1 Kidney damage with normal or decreased GFR 90 2 Kidney damage with mild decrease in GFR 60-89 3 Moderate decrease in GFR 30-59 4 Severe decrease in GFR 15-29 5 Kidney failure <15 (or dialysis) 3 SEE RESULT BELOW Name: FADUMO NUR : [address]: Ana Davidson MD Acct: [id number] Unit: [id number] AGE: 58 Location: OR Re11/05/18 SEX: M Status: REG SDC SPEC: [id number] MARK: 11/05/18-[address]: Ana Davidson MD REQ: [id number] RECD: 11/05/18-1401 STATUS: SOUT _ ORDERED: FNA-IMG GUID BX, CY ADEQ-ADDL P/3, LEVEL 4, CYTO ADEQ-1ST P, IMMUNO -FIRS IMMUNO-ADDL, IMMUNO-QUANT ADDENDUM Immunohistochemical stains, with appropriately reacting controls, were performed with the following results: Pd-L1 0% tumor, 0% microenvironment ALK negative P16 positive Addendum Signed (signature on file) Tamanna Ag MD 1451 FINAL DIAGNOSIS Lymph node, station-12, endobronchial Ultrasound guided, fine needle aspiration: -- Malignant. -- Metastatic squamous cell carcinoma. Comment: Immunochemical stains for ALK and PDL-1 are pending and will be reported in an addendum. Insufficient material is present and cell block and no air dried smears were prepared intraoperatively for gene sequencing. A cell block was prepared in the evaluation of this specimen. CONTINUED ON NEXT PAGE DEPARTMENT OF PATHOLOGY, [address] [place] [address] Gil Chu M.D. Director [facility] # [id number] RUN DATE: 11/09/18 [facility] LAB LIVE PAGE 2 Patient: FADUMO NRU [id number] (Continued) SPECIMEN COMMENTS (Continued) Smears and cell block reveal similar findings. 1. LYMPH NODE - US GUIDED ENDOBRONCHIAL ST12 LYMPH NODE FINE NEEDLE ASPIRATION CLINICAL HISTORY Lymphadenopathy, Stage IV throat cancer. IMMEDIATE INTERPRETATION Pass 1-inadequate, pass 2, 3, and 4-adequate. Pass 5-inadequate, pass 6-adequate, pass 7-inadequate. Pass 8-adequate. GROSS DESCRIPTION US guided endobronchial fine needle aspiration x 8 pass(es) with 9 alcohol fixed slides and needle rinse in formalin for cell block. Signed by and Reported on: Gil Chu MD 1349 END OF REPORT DEPARTMENT OF PATHOLOGY, [address] [place] [address] Gil Chu M.D. Director [facility] # [id number] 4 Product Development Consultant: [id number] 5 Because ethnic data is not always readily available, this report includes an eGFR for both -Americans and non- Americans. The National Kidney Disease Education Program (NKDEP) does not endorse the use of the MDRD equation for patients that are not between the ages of 18 and 70, are , have extremes of body size, muscle mass, or nutritional status, or are non- or non-. According to the National Kidney Foundation, irrespective of diagnosis, the stage of the disease is based on the level of kidney function: Stage Description GFR(mL/min/1.73 m(2)) 1 Kidney damage with normal or decreased GFR 90 2 Kidney damage with mild decrease in GFR 60-89 3 Moderate decrease in GFR 30-59 4 Severe decrease in GFR 15-29 5 Kidney failure <15 (or dialysis) 6 Desirable: <150 Borderline High: 150-199 High: 200-499 Very High: >500 7 Desirable: <200 Borderline High: 200-239 High: >239 8 Low: <40 Desirable: 40-60 High: >60 9 Desirable: <100 Near Optimal: 100-129 Borderline High: 130-159 High: 160-189 Very High: >189 10 Serum levels of PSA measured using the Travis Abhishek DXI Hybritech immunoassay should not be interpreted as absolute evidence of the presence or absence of disease. The PSA value should be used in conjunction with other pertinent clinical diagnostic procedures. The values obtained with different assay methods or kits cannot be used interchangeably. 11 Because ethnic data is not always readily available, this report includes an eGFR for both -Americans and non- Americans. The National Kidney Disease Education Program (NKDEP) does not endorse the use of the MDRD equation for patients that are not between the ages of 18 and 70, are , have extremes of body size, muscle mass, or nutritional status, or are non- or non-. According to the National Kidney Foundation, irrespective of diagnosis, the stage of the disease is based on the level of kidney function: Stage Description GFR(mL/min/1.73 m(2)) 1 Kidney damage with normal or decreased GFR 90 2 Kidney damage with mild decrease in GFR 60-89 3 Moderate decrease in GFR 30-59 4 Severe decrease in GFR 15-29 5 Kidney failure <15 (or dialysis) 12 Product Development Consultant: [id number] Procedures Date Code Description Status 11/05/2018 11339 With Endobronchial Ultrasound Guided Completed 09/22/2018 29170 Tangential Biopsy Of Skin, Single Lesion Completed 02/15/2018 95325352 Colonoscopy Completed 10/29/2017 69266 ECHO Transthorasic Realtime 2D W Doppler & Color Flow Completed Hosp 10/29/2017 86521 EKG, Interpretation Only Completed 07/22/2017 48790 Fluoroscopic Guidance For Cent Completed 07/22/2017 98738 Insertion Tunneled Cent Venous Cathr W Subcut Port 5 Completed Yrs Or Oldr 07/03/2017 46871 Laparoscopy Gastrostomy W/O Construction Of Gastric Completed Tube 06/25/2017 31265 EKG, Interpretation Only Completed Encounters Type Date Location Provider Dx Diagnosis Office Visit 11/16/2018 [facility] Lety, C32.9 Malignant neoplasm 10:30a [facility] of larynx, Monument Installer unspecified R06.02 Shortness of breath Office Visit 10/29/2018 12:30p [facility] Ana J98.4 Other disorders [facility] MD Lety of lung Monument Installer K21.9 Gastro-esophageal reflux disease without esophagitis 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 general adult Suite R medical exam w abnormal findings Z13.220 Encounter for screening for lipoid disorders Z11.59 Encounter for screening for other viral diseases Z12.5 Encounter for screening for malignant neoplasm of prostate Z00.00 Encntr for general adult medical exam w/o abnormal findings Office Visit 12/14/2017 9:00a [facility] [place] Miguelangel, C32.9 Malignant Medicine - M.D. neoplasm of Suite R larynx, unspecified K21.9 Gastro-esophageal reflux disease without esophagitis Z93.0 Tracheostomy status Z12.5 Encounter for screening for malignant neoplasm of prostate Z00.00 Encntr for general adult medical exam w/o abnormal findings G89.4 Chronic pain syndrome [facility]2017 [facility] Assoc,sangeetha Ferrara M.D. 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, unspecified R74.8 Abnormal levels of other serum enzymes Office 07/14/2017 [facility] Magdaleno C32.9 Malignant Visit 12:55p Assoc,pc SUNITA Galloway neoplasm of Hospitalists larynx, unspecified Z72.0 Tobacco use Z93.0 Tracheostomy status Office Visit 07/13/2017 12:55p [facility] Cameron Rosario C32.9 Malignant neoplasm Assoc,sangeetha ELLIS of larynx, Hospitalists unspecified Z72.0 Tobacco use Z93.0 Tracheostomy status Office Visit 07/12/2017 12:54p [facility] Cameron Rosario C32.9 Malignant neoplasm Assoc,sangeetha ELLIS of larynx, Hospitalists unspecified Z72.0 Tobacco use Z93.0 Tracheostomy status Office Visit 07/11/2017 12:54p [facility] Fredrick C32.9 Malignant Assoc,sangeetha Ferrara M.D. neoplasm of Hospitalists larynx, unspecified Z72.0 Tobacco use Z93.0 Tracheostomy status Office Visit 07/10/2017 12:53p [facility] C32.9 Malignant Assocsangeetha M.D. neoplasm of Hospitalists larynx, unspecified Z93.0 Tracheostomy status Office Visit 07/09/2017 12:53p [facility] C32.9 Malignant Assaster,sangeetha Ferrara M.D. neoplasm of Hospitalists larynx, unspecified Z72.0 Tobacco use Z93.0 Tracheostomy status Office Visit 07/08/2017 12:52p [facility] C32.9 Malignant Assocsangeetha M.D. neoplasm of Hospitalists larynx, unspecified Z72.0 Tobacco use Z93.0 Tracheostomy status Office Visit 07/07/2017 [facility] C32.9 Malignant 12:52p sangeetha Whitehead M.D. neoplasm of Hospitalists larynx, unspecified Z72.0 Tobacco use Z93.0 Tracheostomy status Office Visit 07/06/2017 [facility] C32.9 Malignant 12:51p sangeetha Whitehead M.D. neoplasm of Hospitalists larynx, unspecified Z72.0 Tobacco use Z93.0 Tracheostomy status Office Visit 07/05/2017 [facility] C32.9 Malignant 12:50p sangeetha Whitehead M.D. neoplasm of Hospitalists larynx, unspecified Z93.0 Tracheostomy status Z72.0 Tobacco use Office Visit 07/04/2017 [facility] C32.9 Malignant 6:46a sangeetha Whitehead M.D. neoplasm of Hospitalists larynx, unspecified Z93.0 Tracheostomy status Z72.0 Tobacco use Office Visit 07/03/2017 [facility] C32.9 Malignant 6:46a sangeetha Whitehead M.D. neoplasm of Hospitalists larynx, unspecified Z93.0 Tracheostomy status Z72.0 Tobacco use Office Visit 07/03/2017 7:00a [facility] Gary C32.9 Malignant neoplasm [facility] Ronquillo MD, of larynx, FACS unspecified Z93.0 Tracheostomy status Office 07/02/2017 [facility] C32.9 Malignant Visit 6:45a Asssangeetha rodarte, [place] neoplasm of Hospitalists larynx, unspecified Z93.0 Tracheostomy status Z72.0 Tobacco use Office Visit 07/01/2017 [facility] Nidhi C32.9 Malignant 2:52p MD Lee neoplasm of larynx, unspecified Z93.0 Tracheostomy status Office 07/01/2017 [facility] C32.9 Malignant Visit 6:45a Assoc,pc Laverne PA neoplasm of Hospitalists larynx, unspecified Z93.0 Tracheostomy status Z72.0 Tobacco use Office 06/30/2017 [facility] C32.9 Malignant Visit 6:44a Assoc,pc SUNITA Galloway neoplasm of Hospitalists larynx, unspecified Z93.0 Tracheostomy status Z72.0 Tobacco use Office Visit 06/29/2017 6:43a [facility] Leticia López, C32.9 Malignant Assoc,pc N.P. neoplasm of Hospitalists larynx, unspecified Z93.0 Tracheostomy status Z72.0 Tobacco use Office Visit 06/28/2017 6:43a [facility] Letciia López, C32.9 Malignant Assoc,pc N.P. neoplasm of Hospitalists larynx, unspecified Z93.0 Tracheostomy status Z72.0 Tobacco use Office Visit 2017 6:42a [facility] Leticia López, C32.9 Malignant Assoc,pc N.P. neoplasm of Hospitalists larynx, unspecified Z93.0 Tracheostomy status Z72.0 Tobacco use Office Visit 06/26/2017 6:41a [facility] Jennifer C32.9 Malignant Assoc,pc Milind, D.O. neoplasm of Hospitalists larynx, unspecified Z93.0 Tracheostomy status Z72.0 Tobacco use Office Visit 06/25/2017 6:41a [facility] Jennifer C32.9 Malignant Assoc,pc Milind D.O. neoplasm of Hospitalists larynx, unspecified Z93.0 Tracheostomy status Z72.0 Tobacco use Plan of Treatment Future Appointment(s):05/04/2019 10:40 am - Kailey Parikh MD at [facility] Medicine - [place] [facility] - Kailey Parikh MDF43.21 Adjustment disorder with depressed moodNew Medication:Mirtazapine 7.5 mg - one tablet crushed, through g- tube, daily at bedtime. may increase to 2 tabletsafter 2 weeksFollow up:3 moC32.9 Malignant neoplasm of larynx, unspecifiedComments:follow up with Dr. WymanG89.4 Chronic pain smunuuixA08.4 Abnormal weight loss
--- NOTE | 2019-02-04 00:21 | ED ---
GI/ HPI - HPI Summary HPI Summary: The pt is a 58 y/o m presenting to [facility] accompanied by his with a chief complaint of a PEG tube falling out at 2305 today. The pt has a red area around where the old tube was which is rated a 4/10 in pain severity. He reports no aggravating or alleviating symptoms and requests a new tube to be placed. He denies N/V/D. He has a PMHx of lung cancer that was diagnosed in 2017, COPD, and a SHx of smoking 3 PPD starting at age 11 until 2017. - History of Current Complaint Chief Complaint: EDGeneral Time Seen by Provider: 02/03/19 23:42 Stated Complaint: GENERAL PER PT Pain Intensity: 4 - Additional Pertinent History Primary Care Physician: EUGENIE - Allergy/Home Medications Allergies/Adverse Reactions: Allergies Allergy/AdvReac Type Severity Reaction Status Date / Time No Known Allergies Allergy Verified 11/05/18 10:50 PMH/Surg Hx/FS Hx/Imm Hx Previously Healthy: No Endocrine/Hematology History: Denies: Hx Diabetes Cardiovascular History: Denies: Hx Hypertension Respiratory History: Reports: Hx Asthma, Hx Chronic Obstructive Pulmonary Disease (COPD), Other Respiratory Problems/Disorders - SOB. CANCER OF LUNG 2017 , HAS TRACH GI History: Reports: Other GI Disorders History: Denies: Hx Dialysis, Hx Renal Disease Sensory History: Reports: Hx Eye Prosthesis Denies: Hx Contacts or Glasses, Hx Deafness, Hx Hearing Aid Opthamlomology History: Reports: Hx Eye Prosthesis Denies: Hx Contacts or Glasses Psychiatric History: Reports: Hx Anxiety, Hx Depression - DUE TO ILLNESS - Cancer History Cancer Type, Location and Year: larynx CA Hx Chemotherapy: No - Surgical History Surgery Procedure, Year, and Place: 1989 RIGHT Eye INJURY , [facility] [place]. YOUNG CHILD tonsilectomy [facility] [place]. 2017 TRACH AND LARYNGECTOMY [facility] [place]. 1999 DOUBLE ABD. HERNIA [facility] [place] Hx Anesthesia Reactions: No - Immunization History Date of Tetanus Vaccine: utd Date of Influenza Vaccine: fall 2016 Infectious Disease History: No Infectious Disease History: Denies: Traveled Outside the [place] in Last 30 Days - Family History Known Family History: Positive: Cardiac Disease - Social History Alcohol Use: None Substance Use Type: Reports: None Smoking Status (MU): Former Smoker Type: Cigarettes Amount Used/How Often: 3 PPD STARTED AT AGE 11, STOPPED 2016 Length of Time of Smoking/Using Tobacco: 45 YRS Have You Smoked in the Last Year: No Physical Exam Vital Signs On Initial Exam: Initial Vitals Temp Pulse Resp BP Pulse Ox 98.3 F 63 18 143/105 100 02/03/19 23:30 02/03/19 23:30 02/03/19 23:30 02/03/19 23:30 02/03/19 23:30 Diagnostics - Vital Signs Vital Signs Temp Pulse Resp BP Pulse Ox 02/03/19 23:30 98.3 F 63 18 143/105 100 - Laboratory Lab Statement: Any lab studies that have been ordered have been reviewed, and results considered in the medical decision making process. Discharge - Discharge Plan Referrals: No Primary Care Phys,NOPCP [Primary Care Provider] - - Attestation Statements Document Initiated by Natali: Yes
--- NOTE | 2019-02-04 00:27 | ED ---
Abdominal Pain/Male - HPI Summary HPI Summary: The pt is a 58 y/o m presenting to [facility] accompanied by his with a chief complaint of a PEG tube falling out at 2305 today. The pt has a red area around where the old tube was which is rated a 4/10 in pain severity. He reports no aggravating or alleviating symptoms and requests a new tube to be placed. He denies CP, N/V/D. He has a PMHx of lung cancer that was diagnosed in 2017, COPD , and a SHx of smoking 3 PPD starting at age 11 until 2017. - History of Current Complaint Chief Complaint: EDGeneral Stated Complaint: GENERAL PER PT Time Seen by Provider: 02/03/19 23:42 Hx Obtained From: Patient Onset/Duration: Sudden Onset - 2305, Still Present Timing: Constant Severity Initially: Moderate Severity Currently: Moderate Pain Intensity: 4 Pain Scale Used: 0-10 Numeric Location: Discrete At: LUQ Radiates: No Aggravating Factor(s): Other: - Due to PEG tube falling out Alleviating Factor(s): Nothing Associated Signs And Symptoms: Positive: Other - Rash around PEG tube hole. Negative: Chest Pain, Nausea, Vomiting, Diarrhea - Allergies/Home Medications Allergies/Adverse Reactions: Allergies Allergy/AdvReac Type Severity Reaction Status Date / Time No Known Allergies Allergy Verified 11/05/18 10:50 PMH/Surg Hx/FS Hx/Imm Hx Previously Healthy: No Endocrine/Hematology History: Denies: Hx Diabetes Cardiovascular History: Denies: Hx Hypertension Respiratory History: Reports: Hx Asthma, Hx Chronic Obstructive Pulmonary Disease (COPD), Other Respiratory Problems/Disorders - SOB. CANCER OF LUNG 2016 , HAS TRACH GI History: Reports: Other GI Disorders History: Denies: Hx Dialysis, Hx Renal Disease Sensory History: Reports: Hx Eye Prosthesis Denies: Hx Contacts or Glasses Opthamlomology History: Reports: Hx Eye Prosthesis Denies: Hx Contacts or Glasses Psychiatric History: Reports: Hx Anxiety, Hx Depression - DUE TO ILLNESS - Cancer History Cancer Type, Location and Year: larynx CA Hx Chemotherapy: No - Surgical History Surgery Procedure, Year, and Place: 1989 RIGHT Eye INJURY , [facility]. YOU[place] CH[place] [facility] [place] [facility] [place] DOUBLE [place]. [place] [facility] [place] Hx Anesthesia Reactions: No - Immunization History Date of Tetanus Vaccine: utd Date of Influenza Vaccine: fall 2016 Infectious Disease History: No Infectious Disease History: Denies: Traveled Outside the [place] in Last 30 Days - Family History Known Family History: Positive: Cardiac Disease - Social History Alcohol Use: None Substance Use Type: Reports: None Smoking Status (MU): Former Smoker Type: Cigarettes Amount Used/How Often: 3 PPD STARTED AT AGE 11, STOPPED 2017 Length of Time of Smoking/Using Tobacco: 45 YRS Have You Smoked in the Last Year: No Review of Systems Negative: Chest Pain Positive: Other - Rash around PEG tube hole, no PEG tube in place. Negative: Vomiting, Diarrhea, Nausea All Other Systems Reviewed And Are Negative: Yes Physical Exam - Summary Physical Exam Summary: VITAL SIGNS: Reviewed. GENERAL: Patient is a well-developed and nourished male who is lying comfortable in the stretcher. Patient is not in any acute respiratory distress. HEAD AND FACE: No signs of trauma. No ecchymosis, hematomas or skull depressions. No sinus tenderness. EYES: PERRLA, EOMI x 2, No injected conjunctiva, no nystagmus. EARS: Hearing grossly intact. Ear canals and tympanic membranes are within normal limits. MOUTH: Oropharynx within normal limits. NECK: Supple, trachea is midline, no adenopathy, no JVD, no carotid bruit, no c- spine tenderness, neck with full ROM CHEST: Symmetric, no tenderness at palpation LUNGS: Clear to auscultation bilaterally. No wheezing or crackles. CVS: Regular rate and rhythm, S1 and S2 present, no murmurs or gallops appreciated. ABDOMEN: Soft, non-tender. No signs of distention. No rebound no guarding, and no masses palpated. Stoma in the LUQ, G tube 16 inch placed w/o complications. EXTREMITIES: FROM in all major joints, no edema, no cyanosis or clubbing. NEURO: Alert and oriented x 3. No acute neurological deficits. Speech is normal and follows commands. SKIN: Dry and warm Triage Information Reviewed: Yes Vital Signs On Initial Exam: Initial Vitals Temp Pulse Resp BP Pulse Ox 98.3 F 63 18 143/105 100 02/03/19 23:30 02/03/19 23:30 02/03/19 23:30 02/03/19 23:30 02/03/19 23:30 Vital Signs Reviewed: Yes Diagnostics - Vital Signs Vital Signs Temp Pulse Resp BP Pulse Ox 02/03/19 23:30 98.3 F 63 18 143/105 100 - Laboratory Lab Statement: Any lab studies that have been ordered have been reviewed, and results considered in the medical decision making process. Abdominal Pain Male Course/Dx - Course Course Of Treatment: he pt is a 58 y/o m presenting to [facility] accompanied by his with a chief complaint of a PEG tube falling out at 2305 today. The pt has a red area around where the old tube was which is rated a 4/10 in pain severity. A new G tube was placed which was 16 inches without complications. He will be diagnosed with G tube dysfunction and discharged home with instructions to f/u with his PCP and return to the ED with any new or worsening symptoms. - Diagnoses Provider Diagnoses: Gastrostomy tube dysfunction Discharge - Sign-Out/Discharge Documenting (check all that apply): Patient Departure - discharge Patient Received Moderate/Deep Sedation with Procedure: No - Discharge Plan Condition: Stable Disposition: HOME Referrals: [facility] [Outside] - 2 Days Additional Instructions: Please follow up with [facility] in 2-3 days and return to the emergency department with any new or worsening symptoms. - Attestation Statements Document Initiated by Scribe: Yes Documenting Scribe: Chris Bro Provider For Whom Scribe is Documenting (Include Credential): Wendy Ernst MD Scribe Attestation: Chris Huynh, scribed for Wendy Ernst MD on 02/04/19 at 0029. Status of Scribe Document: Ready
[2019-02-04] MEDS ORDERED: Clotrimazole 1% CREAM* 30 GM TOPICAL SCH (00:30)
[2019-02-04 00:40] VITALS: BP 141/89
== END 2019-02-04 00:40 | disposition home or self-care (01) ==
LOC: ED 23:24
DX: K94.23 Gastrostomy malfunction (principal); C32.9 Malignant neoplasm of larynx, unspecified; J44.9 Chronic obstructive pulmonary disease, unspecified; Z87.891 Personal history of nicotine dependence
CPT/HCPCS: 99282

== ENCOUNTER → 2019-07-27 10:57 | Day surgery (SDC) | payer OTHER ==
[~2019-07-27 10:57] MED LIST changes: +Benzocaine/Butamben/Tetracain (CETACAINE - SINGLE USE) 5 gm TOPICAL ONE; +Dexamethasone IV* 4 MG/ML 1 ML (4 MG) IV SLOW PU ONE; +Famotidine IV* 10 MG/ML 2 ML (20 mg) IV ONE; +HYDROmorphone INJ1* 1 MG/ML SYRINGE IV PRN; +Levalbuterol 0.63MG/3ML NEB* UNIT OF USE INH ONE; -Lidocaine 1% INJ* 10 MG/ML 30 ML SDV ONE; -Lidocaine 1%* 5 ML VIAL ONE; -Midazolam* 1 MG/ML 2 ML VIAL (2 MG) ONE; +Ondansetron ODT TAB* 4 MG PO ONE; +PROCHLORPERAZINE INJ 5 MG/ML 2 ML VIAL IV PRN; -Propofol* 10 MG/ML 20 ML BTL ONE; +fentaNYL* 50 MCG/ML 2 ML VIAL (100 MCG VIAL) IV PRN; -fentaNYL* 50 MCG/ML 2 ML VIAL (100 MCG VIAL) ONE
--- NOTE | 2019-07-27 21:25 | OP ---
DATE OF OPERATION: 07/27/19 - [facility] DATE OF : 56 SURGEON: Brandon Navarro MD PRE-OP DIAGNOSES: Leaking tracheoesophageal prosthesis, aphonia. PRE-OP DIAGNOSES: Leaking tracheoesophageal prosthesis, aphonia. OPERATIVE PROCEDURE: Placement of TEP. INDICATIONS: This 59-year-old gentleman with history of laryngectomy. Progressive leakage of the TEP, elected for change. DESCRIPTION OF PROCEDURE: At the bedside, the patient was confirmed position. Previously placed TEP was removed, #12.5 Provox 2 prosthesis was then inserted. He was able to phonate better. He continued to have moderate dysphagia. No leakage after testing. We will see him back in 1 week's time. [id number]/CPS #: [id number] MTDD
== END | disposition home or self-care (01) ==
LOC: OR 10:57
PROVIDERS: ATTEND Otolaryngology
DX: Z43.0 Encounter for attention to tracheostomy (principal); R49.1 Aphonia; Z87.891 Personal history of nicotine dependence; Z85.21 Personal history of malignant neoplasm of larynx
CPT/HCPCS: L8509

== ENCOUNTER → 2019-11-11 07:00 | Day surgery (SDC) | payer OTHER ==
--- NOTE | 2019-11-11 12:08 | OP ---
DATE OF OPERATION: 11/11/19 - [facility] DATE OF : 56 SURGEON: Brandon Navarro MD. PRE-OP DIAGNOSIS: Leaking tracheoesophageal prosthesis. PRE-OP DIAGNOSIS: Leaking tracheoesophageal prosthesis. OPERATIVE PROCEDURE: Replacement of TEP to #6 Provox prosthesis. INDICATIONS: This 59-year-old gentleman with a history of laryngeal cancer, laryngectomy, symptoms suggestive of leakage, elected for replacement of TEP. DESCRIPTION OF PROCEDURE: The patient was brought to the operating room under topical anesthesia with Cetacaine spray. Previously noted TEP was removed, sizing was carried out and it was determined that #6 would fit best. A #6 Provox was inserted. Checked patency as well as inability to aspirate. Once this was secured, the patient was discharged home to be followed up in 2 months' time. [id number]/CPS #: [id number] MTDD
== END | disposition home or self-care (01) ==
LOC: OR 07:00
PROVIDERS: ATTEND Otolaryngology
DX: Z43.0 Encounter for attention to tracheostomy (principal); R49.1 Aphonia; Z85.21 Personal history of malignant neoplasm of larynx; Z87.891 Personal history of nicotine dependence; J44.9 Chronic obstructive pulmonary disease, unspecified

== ENCOUNTER 2022-10-09 17:17 | Inpatient (IN) ==
[~2022-10-09 17:17] MED LIST changes: -Benzocaine/Butamben/Tetracain (CETACAINE - SINGLE USE) 5 gm TOPICAL ONE; -Buffered Lidocaine 1% SYRIN* 1 ML/SYRINGE INTRADERM ONE; +Calcium CHLORIDE 10% SYRINGE 1 GM/10 ML ONE; -Dexamethasone IV* 4 MG/ML 1 ML (4 MG) IV SLOW PU ONE; +EPINEPHrine SYR 0.1MG/ML 10 ml SYRINGE ONE; -Famotidine IV* 10 MG/ML 2 ML (20 mg) IV ONE; -HYDROmorphone INJ1* 1 MG/ML SYRINGE IV PRN; -Lactated Ringers 1000 ML Bag* 1,000 ML IV SCH; -Levalbuterol 0.63MG/3ML NEB* UNIT OF USE INH ONE; -Naloxone* 0.4 MG/ML 1 ML VIAL IV PRN; -Ondansetron ODT TAB* 4 MG PO ONE; -PROCHLORPERAZINE INJ 5 MG/ML 2 ML VIAL IV PRN; +Sodium Bicarbonate 8.4% SYR 50 ml SYRINGE ONE; -fentaNYL* 50 MCG/ML 2 ML VIAL (100 MCG VIAL) IV PRN
[2022-10-09] MEDS ORDERED: Lactated Ringers 1000 ml BAG 1,000 ML IV ONE (17:19)
[2022-10-09] MEDS ORDERED: Propofol 10 mg/ml 100 ML BTL 1,000 MG/100 ML BTL IV SCH (18:00)
[2022-10-09 18:11] LABS: Hematocrit 12 % (42-52); Hemoglobin 2.5 g/dL (14.0-18.0); Mean Corpuscular HGB Conc 21 g/dL (31-36); Mean Corpuscular Hemoglobin 23 pg (27-31); Mean Corpuscular Volume 112 fL (80-94); Mean Platelet Volume 9.4 fL (7.4-10.4); Platelet Count 342 10^3/uL (150-450); Red Blood Count 1.07 10^6 /uL (4.18-5.48); Red Cell Distribution Width 28 % (10-15)
[2022-10-09] MEDS ORDERED: Pantoprazole 80 mg in NS BAG 80 MG/250 ML BAG IV ONE (18:16)
[2022-10-09] MEDS ORDERED: Pantoprazole VIAL 40 MG VIAL IV ONE (18:16)
[2022-10-09 18:24] LABS: PCO2 Arterial 27 mmHg (35-45); PO2 Arterial 208 mmHg (80-100)
[2022-10-09] MEDS ORDERED: Sodium Bicarb 8.4% Vial 50 ML 150 MEQ in D5W 1000 ml BAG 850 ML IV ONE (18:25)
[2022-10-09 19:01] LABS: Albumin 1.8 g/dL (3.2-5.2); Magnesium 4.5 mg/dL (1.9-2.7)
[2022-10-09 19:06] LABS: TSH Ultra Thyroid Stim Horm 8.26 mcIU/mL (0.34-5.60)
[2022-10-09 19:09] LABS: Calcium 10.5 mg/dL (8.6-10.3); Creatinine, Serum 1.96 mg/dL (0.67-1.17); eGFR CKD-EPI 37.5 (>60)
[2022-10-09 19:12] LABS: Potassium 7.8 mmol/L (3.5-5.0)
[2022-10-09 19:13] LABS: Total Bilirubin 0.1 mg/dL (0.2-1.0)
[2022-10-09] MEDS ORDERED: D5W IV SCH (19:15)
[2022-10-09] MEDS ORDERED: EPINEPHRINE IV SCH (19:15)
[2022-10-09 19:22] LABS: Albumin/Globulin Ratio 1.1 (1-3); C Reactive Protein 37.15 mg/L (<8.01); Globulin 1.7 g/dL (2-4); Phosphorus 13.6 mg/dL (2.5-5.0); Total Protein 3.5 g/dL (6.4-8.9)
[2022-10-09 19:46] LABS: Anisocytosis 3+; Polychromasia 1+; Tear Drop Cells 1+
[2022-10-09 19:56] LABS: Activated Partial Thrombo Time 194.4 seconds (26.0-38.0)
[2022-10-09 19:59] VITALS: BP 0/0
[2022-10-09 20:09] LABS: Macrocytosis 1+
[2022-10-09 20:14] LABS: Acanthocytes 1+; Hypochromasia 1+
[2022-10-09 20:18] LABS: ABS Lymphocytes 1.3 10^3/ul (1.0-4.8); ABS Monocytes 0.2 10^3/ul (0-0.8); ABS Neutrophils 4.5 10^3/ul (1.5-7.7); ABS Nucleated RBC 0.8 10^3/ul; Eosinophil % 0.3 %; Nucleated Red Blood Cells % 12.5
[2022-10-09] MEDS ORDERED: Haloperidol 5 mg/ml SDV IV/IM 5 MG/ML AMP IV SLOW PU PRN (21:45)
[2022-10-09] MEDS ORDERED: Morphine 2 MG/ML SYRINGE IV PRN (21:45)
[2022-10-09] MEDS ORDERED: LORazepam 2 mg VIAL 1 ml IV PUSH PRN (21:46)
[2022-10-09] MEDS ORDERED: Lorazepam PYXIS KEY PRN (21:46)
[2022-10-09] MEDS ORDERED: Scopolamine 1 mg/72hr PATCH TRANSDERM SCH (22:00)
[2022-10-09] MEDS ORDERED: PHENYLEPHRINE DRIP IVPREMIX 50 MG/250 ML BAG IV SCH (23:45)
[2022-10-09] MEDS ORDERED: Vasopressin 100 UNITS in D5W 250 ml BAG 245 ML IV SCH (23:45)
[2022-10-10] MEDS ORDERED: EPINEPHRINE 1 MG/ML 4 MG in D5W 1000 ML BAG 996 ML IV SCH (23:45)
== END 2022-10-09 22:38 | disposition expired | DRG 297 ==
LOC: ED 17:17 → ICU 19:28
PROVIDERS: ADMIT Internal Medicine; ATTEND Internal Medicine